=== PATIENT | female | born 1995 | race Hispanic/Latino ===

== ENCOUNTER 2022-04-14 10:23 | Emergency (ER) | payer SELFPAY ==
[2022-04-14 11:17] LABS: Urine Blood 3+ (Negative); Urine Glucose 3+ (Negative); Urine Protein Trace (Negative); Urine Specific Gravity 1.025 (1.005-1.030); Urine pH 6.5 (5.0-7.0)
[2022-04-14 11:31] LABS: Absolute Lymphocytes (CBC) 2.3 K/uL (0.7-4.9); Lymphocytes % 27.9 % (15.3-44.8); MCV 81.8 fL (80-100); RBC Red Blood Cell Count 5.38 M/uL (3.86-4.86)
[2022-04-14 11:41] LABS: Urine Mucus Slight /HPF (None Seen)
[2022-04-14 12:09] LABS: Potassium 3.9 mmol/L (3.5-5.1)
[2022-04-14 12:37] LABS: Urine Specific Gravity/Preg 1.025 (1.005-1.030)
--- NOTE | 2022-04-14 12:53 | RAD REPORT ---
EXAM DESCRIPTION: US - Transvaginal OB - 04/14/2022 12:02 pm CLINICAL HISTORY: with vaginal bleeding COMPARISON: None. FINDINGS: The uterus measures 12 x 6 x 7 centimeters. A normal appearing gestational sac is present within the endometrium. Within this is a yolk sac and pole with a crown-rump length 1.1 centim eter. Centimeters. Cardiac activity was not detected Right ovary is normal in size and echotexture. Left ovary not seen secondary to overlying bowel gas 4.8 centimeter right adnexal cyst. 3 centimeter left adnexal cyst No significant free fluid is seen. IMPRESSION: Single intrauterine . Estimated gestational age 7 weeks 2 days PEPITO 11/29/2022 Cardiac activity was not detected. This may indicate demise. Another consideration is that it w as not visualized secondary to the early gestation and technical factors. Follow-up ultrasound in 1 w [place] recommended Bilateral adnexal cystic masses probably benign. Follow-up ultrasound in 6 months recommended
--- NOTE | 2022-04-14 12:54 | RAD REPORT ---
EXAM DESCRIPTION: US - 1St Trimest Single 1St Fetus - 04/14/2022 12:02 pm CLINICAL HISTORY: with vaginal bleeding COMPARISON: None. FINDINGS: The uterus measures 12 x 6 x 7 centimeters. A normal appearing gestational sac is present within the endometrium. Within this is a yolk sac and pole with a crown-rump length 1.1 centim eter. Centimeters. Cardiac activity was not detected Right ovary is normal in size and echotexture. Left ovary not seen secondary to overlying bowel gas 4.8 centimeter right adnexal cyst. 3 centimeter left adnexal cyst No significant free fluid is seen. IMPRESSION: Single intrauterine . Estimated gestational age 7 weeks 2 days PEPITO 11/29/2022 Cardiac activity was not detected. This may indicate demise. Another consideration is that it w as not visualized secondary to the early gestation and technical factors. Follow-up ultrasound in 1 w [place] recommended Bilateral adnexal cystic masses probably benign. Follow-up ultrasound in 6 months recommended
--- NOTE | 2022-04-14 13:02 | ER ---
Nurse's Notes [facility] Name: Lynette Topete Age: 26 yrs Sex: Female : 1995 Arrival Date: 04/14/2022 Time: 10:27 Bed 18 Private MD: Diagnosis: Threatened ;Abnormal uterine and vaginal bleeding, unspecified Presentation: 04/14 10:31 Chief complaint: Patient states: started bleeding, when i wipe it looks like I;m about iw to start my period, happened this morning , I found out i'm a couple weeks ago and LMP was 03-09-22, home UPT were positive. Coronavirus screen: At this time, the client does not indicate any symptoms associated with coronavirus-19. Ebola Screen: Patient negative for fever greater than or equal to 101.5 degrees Fahrenheit, and additional compatible Ebola Virus Disease symptoms Patient denies exposure to infectious person. Patient denies travel to an Ebola-affected area in the 21 days before illness onset. No symptoms or risks identified at this time. Initial Sepsis Screen: Does the patient meet any 2 criteria? No. Patient's initial sepsis screen is negative. Does the patient have a suspected source of infection? No. Patient's initial sepsis screen is negative. Risk Assessment: Do you want to hurt yourself or someone else? Patient reports no desire to harm self or others. Onset of symptoms was April 14, 2022. 10:31 Method Of Arrival: Ambulatory iw 10:31 Acuity: AICHA 3 iw MANAGER CENTER: 10:33 2, Full Term 1, Living 1, LMP 03/09/2022 iw 10:35 2, Full Term 1, Premature 0, 0, Living 1 [facility] Historical: - Allergies: 10:33 No Known Allergies; iw - Home Meds: 10:33 None [Active]; iw - PMHx: 10:33 None; iw - PSHx: 10:33 None; iw - Social history:: Smoking status: . Screenin:19 Abuse screen: Denies threats or abuse. Denies injuries from another. Nutritional db screening: No deficits noted. Tuberculosis screening: No symptoms or risk factors identified. Fall Risk None identified. No fall in past 12 months (0 pts). No secondary diagnosis (0 pts). IV access (20 points). Ambulatory Aid- None/Bed Rest/Nurse Assist (0 pts). Gait- Normal/Bed Rest/Wheelchair (0 pts) Mental Status- Oriented to own ability (0 pts). Total Perez Fall Scale indicates No Risk (0-24 pts). Assessment: 11:17 Obstetrical Assessment: General assessment: awake and alert, skin warm and dry, db respirations even and unlabored. Reassessment: Patient appears in no apparent distress at this time. Patient is alert, oriented x 3, equal unlabored respirations, skin warm/dry/pink. states is last period last month between and . States had positive test at home. Started having red spotting. Denies blood clots and denies pain. General: Appears in no apparent distress. comfortable, Behavior is calm, cooperative, appropriate for age, quiet. Pain: Denies pain. Neuro: No deficits noted. Level of Consciousness is awake, alert, obeys commands, Oriented to person, place, time, situation, Appropriate for age Speech is normal. : No deficits noted. No signs and/or symptoms were reported regarding the genitourinary system. 12:30 Reassessment: Patient appears in no apparent distress at this time. Patient and/or db family updated on plan of care and expected duration. Pain level reassessed. Patient is alert, oriented x 3, equal unlabored respirations, skin warm/dry/pink. 13:45 Reassessment: Patient appears in no apparent distress at this time. Patient and/or db family updated on plan of care and expected duration. Pain level reassessed. Patient is alert, oriented x 3, equal unlabored respirations, skin warm/dry/pink. Patient states feeling better. Patient states symptoms have improved. Vital Signs: 10:31 BP 137 / 84; Pulse 85; Resp 16; Temp 98.3; Pulse Ox 100% on R/A; Weight 81.65 kg; iw Height 5 ft. 0 in. (152.40 cm); 13:45 BP 107 / 66; Pulse 76; Resp 16; Pulse Ox 100% on R/A; db 10:31 Body Mass Index 35.15 (81.65 kg, 152.40 cm) iw Vitals: 11:20 Heart Tones soil technician at bedside. Patient is not far enough along for db heart tones. ED Course: 10:27 Patient arrived in ED. as 10:27 [facility] Urbano FNP [facility] 10:27 Richard Adkins MD is Attending Physician. [facility] 10:32 Triage completed. iw 10:33 Arm band placed on. iw 10:40 Lisa Stovall, RN is Primary Nurse. db 11:13 Inserted saline lock: 20 gauge in left antecubital area, using aseptic technique. Blood db collected. 11:20 Patient has correct armband on for positive identification. Bed in low position. Call db light in reach. Side rails up X 1. 12:04 US Transvaginal Ob In Process Unspecified. EDMS 12:04 1St Trimest Single 1St Fetus In Process Unspecified. EDMS 13:01 Yoel Pagan MD is Referral Physician. [facility] 13:45 No provider procedures requiring assistance completed. IV discontinued, intact, db bleeding controlled, No redness/swelling at site. 13:45 No provider procedures requiring assistance completed. db Administered Medications: No medications were administered Medication: 11:19 VIS not applicable for this client. db Point of Care Testing: Urine : 14:09 hCG Reading: Positive; db Outcome: 13:01 Discharge ordered by . jh7 13:45 Discharged to home ambulatory, with family. db 13:45 Condition: stable 13:45 Discharge instructions given to patient, Instructed on discharge instructions, follow up and referral plans. Demonstrated understanding of instructions, follow-up care, medications, Prescriptions given X 2. 13:56 Patient left the ED. iw Signatures: Dispatcher [employer] Nancy Yoder Irene, RN RN Madai Urbano FNP [place] [phone] Lisa Stovall, RN RN db
--- NOTE | 2022-04-14 13:02 | EDPHYS ---
Physician Documentation [facility] Name: Lynette Topete Age: 26 yrs Sex: Female : 1995 Arrival Date: 04/14/2022 Time: 10:27 Bed 18 Private MD: ED Physician Richard Adkins HPI: 04/14 10:35 This 26 yrs old Female presents to ER via Ambulatory with complaints of jh7 Vaginal Bleeding, + Preg <12wks. 10:35 The patient presents to the emergency department with vaginal bleeding, that is light, jh7 with clots. The estimated gestational age is 5 weeks. Previous pregnancies: in previous pregnancies patient has had. Associated signs and symptoms: Pertinent negatives: abdominal pain, nausea, vomiting. [employer]ELOPER: 10:33 2, Full Term 1, Living 1, LMP 03/09/2022 iw 10:35 2, Full Term 1, Premature 0, 0, Living 1 jh7 Historical: - Allergies: 10:33 No Known Allergies; iw - Home Meds: 10:33 None [Active]; iw - PMHx: 10:33 None; iw - PSHx: 10:33 None; iw - Social history:: Smoking status: . ROS: 10:35 Constitutional: Negative for fever, chills, and weight loss, Eyes: Negative for injury, jh7 pain, redness, and discharge, ENT: Negative for injury, pain, and discharge, Neck: Negative for injury, pain, and swelling, Cardiovascular: Negative for chest pain, palpitations, and edema, Respiratory: Negative for shortness of breath, cough, wheezing, and pleuritic chest pain, Back: Negative for injury and pain, MS/Extremity: Negative for injury and deformity, Skin: Negative for injury, rash, and discoloration, Neuro: Negative for headache, weakness, numbness, tingling, and seizure. 10:35 Abdomen/GI: Positive for abdominal cramps, Negative for abdominal pain. 10:35 : Positive for vaginal bleeding, Negative for urinary symptoms. 10:35 All other systems are negative. Exam: 10:35 Constitutional: This is a well developed, well nourished patient who is awake, alert, jh7 and in no acute distress. Head/Face: Normocephalic, atraumatic. Cardiovascular: Regular rate and rhythm with a normal S1 and S2. No gallops, murmurs, or rubs. Normal PMI, no JVD. No pulse deficits. Respiratory: Lungs have equal breath sounds bilaterally, clear to auscultation and percussion. No rales, rhonchi or wheezes noted. No increased work of breathing, no retractions or nasal flaring. Abdomen/GI: Soft, non-tender, with normal bowel sounds. No distension or tympany. No guarding or rebound. No evidence of tenderness throughout. Back: No spinal tenderness. No costovertebral tenderness. Full range of motion. Skin: Warm, dry with normal turgor. Normal color with no rashes, no lesions, and no evidence of cellulitis. MS/ Extremity: Pulses equal, no cyanosis. Neurovascular intact. Full, normal range of motion. Neuro: Awake and alert, GCS 15, oriented to person, place, time, and situation. Motor strength 5/5 in all extremities. Sensory grossly intact. Normal gait. Vital Signs: 10:31 BP 137 / 84; Pulse 85; Resp 16; Temp 98.3; Pulse Ox 100% on R/A; Weight 81.65 kg; iw Height 5 ft. 0 in. (152.40 cm); 13:45 BP 107 / 66; Pulse 76; Resp 16; Pulse Ox 100% on R/A; db 10:31 Body Mass Index 35.15 (81.65 kg, 152.40 cm) iw MDM: 10:27 Patient medically screened. [facility] 13:07 Differential diagnosis: threatened Ab, Ovarian cyst. Data reviewed: vital signs, nurses [facility] notes, lab test result(s), radiologic studies, ultrasound. Data interpreted: Pulse oximetry: is 100 %. Interpretation: normal. Counseling: I had a detailed discussion with the patient and/or guardian regarding: the historical points, exam findings, and any diagnostic results supporting the discharge/admit diagnosis, the need for outpatient follow up, an OB/Gyne specialist, to return to the emergency department if symptoms worsen or persist or if there are any questions or concerns that arise at home. ED course: Informed patient of ultrasound findings. Advised to follow-up with her [employer]ELOPER within 1 week for repeat ultrasound.. 04/14 10:37 Order name: Basic Metabolic Panel; Complete Time: 12:28 [facility] 04/14 10:37 Order name: CBC with Diff; Complete Time: 11:55 [facility] 04/14 10:37 Order name: Quantitative Hcg; Complete Time: 12:28 [facility] 04/14 10:37 Order name: Urine Microscopic Only; Complete Time: 11:55 [facility] 04/14 11:18 Order name: Urine Dipstick-Ancillary; Complete Time: 11:20 EDMS 04/14 11:27 Order name: Urine --Ancillary (enter results); Complete Time: 12:44 eb 04/14 10:37 Order name: US Transvaginal Ob; Complete Time: 12:57 [facility] 04/14 10:37 Order name: IV Saline Lock; Complete Time: 11:17 [facility] 04/14 10:37 Order name: Labs collected and sent; Complete Time: 11:17 [facility] 04/14 10:37 Order name: NPO; Complete Time: 11:17 [facility] 04/14 10:37 Order name: Urine Dipstick-Ancillary (obtain specimen); Complete Time: 11:17 [facility] 04/14 10:37 Order name: Urine Test (obtain specimen); Complete Time: 11:17 [facility] 04/14 11:45 Order name: 1St Trimest Single 1St Fetus; Complete Time: 12:57 EDMS Administered Medications: No medications were administered Point of Care Testing: Urine : 14:09 hCG Reading: Positive; db Disposition: 15:42 Co-signature as Attending Physician, Richard Adkins MD I agree with the assessment and rt plan of care. Disposition Summary: 04/14/22 13:01 Discharge Ordered Location: Home [facility] Problem: new [facility] Symptoms: are unchanged [facility] Condition: Stable [facility] Diagnosis - Threatened [facility] - Abnormal uterine and vaginal bleeding, unspecified [facility] Followup: [facility] - With: Yoel Pagan MD - When: 2 - 3 days - Reason: Recheck today's complaints Discharge Instructions: - Discharge Summary Sheet [facility] - Threatened Miscarriage [facility] - Vaginal Bleeding During , First Trimester [facility] - Activity Restriction During [facility] Forms: - Medication Reconciliation Form [facility] - Thank You Letter [facility] - Work release form db Signatures: Dispatcher [employer] EDLucía Saavedra RN RN iw Madai Urbano, GANG SAWYER GANG SAWYER [facility] [place], Richard, MD MD rt
[2022-04-14 14:00] VITALS: BP 137/84; TEMP 98.3; O2SAT 100
== END 2022-04-14 13:56 | disposition home or self-care (01) ==
LOC: ER 10:23
DX: O20.0 Threatened abortion (principal); Z3A.01 Less than 8 weeks gestation of pregnancy
CPT/HCPCS: 36415; 76801; 76817; 80048; 81003; 81015; 81025; 84702; 85025; 99284

== ENCOUNTER 2024-01-24 22:51 | Emergency (ER) | payer OTHER ==
--- OUTSIDE RECORDS SUMMARY | 2024-01-24 23:02 | XMS REPORT | Continuity of Care Document ---
Author Name Unknown Address [address] [facility] [address] [place] [address] [facility] thconnect Address [address] [facility] [address] [place] [address] Care Team Providers Care Shearer Screen Measurer And Trimmer Name Role Phone Pcp, Patient Does Not Have A Primary Care Physic aman GURJIT BRAND Attending Clinician Unavailab GURJIT Ritter Attending Clinician Unavailab SIMI De Leon Attending Clinician Unavailab SIMI De Leon Attending Clinician Unavailab Mirlande Dominguez CNM Attending Clinician [phone] BIBIANA HIRSCH Attending Clinician Unavail able BIBIANA HIRSCH Attending Clinician Unavail able Risk, Roz-Neosd-Ps/High Attending Clinician Unav ailable MIRLANDE PATEL Attending Clinician Unavaila ble Ender, Ellacheddie Attending Clinician Unavailable John Paul Welch DNP Attending Clinician + [phone] JOHN PAUL WELCH Attending Clinician Unavail able CUONG NDIAYE Attending Clinician Unavail able MAURICE WILKINS Attending Clinician Unavailable Maurice Wilkins DO Attending Clinician [phone], [facility] Attending Clinician Unavailable Malou ECHOCARDIOGRAPHY TECH, Mundo Attending Clinician [phone] Doctor Unassigned, Myrtle Attending Clinician U teresa Santa MD, Simon Attending Clinician [phone] Delfin HAYESWElayne Attending Clinician [phone] Narendra PAVER, Mary Lou Garcia Attending Clinician Unava ilcarmelo HAJI, MUNDO Attending Clinician Unavailab CORRINA Vu Attending Clinician Unavailable Corrina Cortés Attending Clinician [phone] JESSICA PEDERSEN Attending Clinician Unavailable Rogelio WHYTE Attending Clinician Unavailable Rogelio Crisostomo Attending Clinician [phone] Jun KUMAR, Jessica Evans Attending Clinician [phone] Irving Matos MD Attending Clinician [phone] YVES MANRIQUEZ Attending Clinician Unavailable DENISE CONNER III Attending Clinician Unavaila JESSICA Hardy Admitting Clinician Unavailable RUI HERNADEZ Admitting Clinician Unavailable Jessica Pedersen MD Admitting Clinician [phone] Payers Payer Name Policy Type Policy Number Effective Date Expirati on Date Source MEDICAID PENDING PENDING 2022 00:00:00 [facility] [id number] 2022 00:00:00 2023 00:00:00 [facility] [id number] 2023 00:00:00 [place] [id number] 2023 00:00:00 [facility] [id number] 2023 00:00:00 Problems Condition Name Condition Details Condition Category Status Onset Date Resolution Date Last Treatment Date Treating Clinician Comments Source Rubella non-immune status, antepartum Rubella non-immune status, antepartum Disease Active 12-05 00:00: 00 [facility] Uncontroll ed type 2 diabetes mellitus with hyperglyce gayle Uncontroll ed type 2 diabetes mellitus with hyperglyce gayle Disease Active 2021-05 00:00: 00 [facility] Incomplete miscarriag e with blood clot Incomplete miscarriag e with blood clot Disease Active 2021-05 00:00: 00 [facility] Right ovarian cyst Right ovarian cyst Disease Active 09-18 00:00: 00 Overview: Formattin g of this note might be different from the original. Noted on USG, risk for torsion as per USG [facility] History of depression History of depression Disease Active 08-12 00:00: 00 [facility] Supervisio n of high risk , antepartum Supervisio n of high risk , antepartum Disease Active 07-15 00:00: 00 [facility] Anemia of mother in , condition Anemia of mother in , condition Disease Resolve d 2015-05 00:00: 00 2023-12-05 00:00:00 2023-12-05 19:13:30 [facility] Routine follow-up Routine follow-up Disease Resolve d 2015-05 00:00: 00 2023-12-05 00:00:00 2023-12-05 19:13:21 [facility] Gestationa l diabetes mellitus, antepartum Gestationa l diabetes mellitus, antepartum Disease Resolve d 01-02 00:00: 00 2023-12-05 00:00:00 2023-12-05 19:13:25 Overview: Formattin g of this note might be different from the original. Failed 1h- 220mg/dl 01/25 HgA1C= 7.4 [facility] Incomplete miscarriag e with blood clot Incomplete miscarriag e with blood clot Disease Resolve d 2021-05 00:00: 00 2022-05-07 00:00:00 2022-05-07 17:08:43 [facility] Diabetes mellitus affecting in first trimester Diabetes mellitus affecting in first trimester Disease Resolve d 2021-05 00:00: 00 2022-05-07 00:00:00 2022-05-07 17:09:10 [facility] 38 weeks gestation of 38 weeks gestation of Disease Resolve d 2015-05 0 00:00: 00 2016-03-19 00:00:00 2016-03-19 14:20:02 [facility] Chlamydia infection affecting , antepartum Chlamydia infection affecting , antepartum Disease Resolve d 3-01 00:00: 00 2016-03-19 00:00:00 2021-12-10 00:39:43 [facility] Obesity affecting Obesity affecting Disease Resolve d 2-19 00:00: 00 2016-03-19 00:00:00 2016-03-19 14:20:10 [facility] Tobacco smoking affecting Tobacco smoking affecting Disease Resolve d 2-19 00:00: 00 2016-03-19 00:00:00 2021-12-10 00:39:36 [facility] Back pain affecting Back pain affecting Disease Resolve d 2-19 00:00: 00 2016-03-19 00:00:00 2016-03-19 14:20:04 [facility] with abnormal glucose tolerance test (GTT) with abnormal glucose tolerance test (GTT) Disease Resolve d 2-20 00:00: 00 2016-01-25 00:00:00 2021-12-10 00:39:36 [facility] Diarrhea Diarrhea Disease Resolve d 7-19 00:00: 00 2016-01-11 00:00:00 2016-01-11 14:47:20 [facility] Allergies, Adverse Reactions, Alerts Allergy Name Allergy Type Status Severity Reaction(s) Onset Date Inactive Date Treating Clinician Comments Source NO KNOWN ALLERGIE S Drug Class Active [facility] Social History Social Habit Start Date Stop Date Quantity Comments Source ASSERTION 2023-11-11 00:00:00 [facility] History of tobacco use Cigarette Smoker [facility] function 2023-12-12 00:00:00 2023-12-12 00:00:00 [facility] Alcoholic beverage intake 2023-12-05 00:00:00 2023-12-05 00:00:00 Ex-drinker (finding) [facility] Tobacco use and exposure 2023-12-05 00:00:2023-12-05 00:00:00 Smokeless tobacco non-user [facility] Alcohol intake 2023-05-14 00:00:00 2023-05-14 00:00:00 Lifetime non-drinker (finding) [facility] Exposure to SARS-CoV-2 (event) 2022-04-27 00:00:00 2022-05-07 15:24:00 Not sure [facility] Tobacco Comment 2022-05-07 00:00:00 2022-05-07 00:00:00 4-5 cigs a day [facility] Sex assigned at 1995 00:00:00 1995 00:00:00 [facility] Smoking Status Start Date Stop Date Source Tobacco smoking consumption unknown [facility] Ex-smoker 2023-12-05 00:00:00 2023-12-05 00:00:00 [facility] Smokes tobacco daily 2022-05-07 00:00:00 [facility] Medications Ordered Medication Name Filled Medication Name Start Date Stop Date Current Medication? Ordering Clinician Indication Dosage Frequency Signature (SIG) Comments Components Source Blood-Gluco se Meter Kit 12-16 00:00: 00 Yes Check blood glucose 4 times a day. AM Fasting and 2 hours postprandi al x3. [facility] Blood Sugar Diagnostic, Disc Strp 12-16 00:00: 00 Yes Check blood glucose 4 times a day. AM Fasting and 2 hours postprandi al x3. [facility] lancets 28 gauge Misc 12-16 00:00: 00 Yes Check blood glucose 4 times a day. AM Fasting and 2 hours postprandi al x3. [facility] ampicillin 500 mg capsule 12-05 00:00: 00 12-16 04:59 :00 Yes [id number] 500mg Take 1 capsule by mouth every 6 (six) hours for 10 days. [facility] proMETHazin e 12.5 mg tablet 12-04 00:00: 00 Yes [id number] 12.5mg Take 1 tablet by mouth every 6 (six) hours as needed for Nausea and Vomiting (N/V). [facility] lancets 28 gauge [facility] 12-04 00:00: 00 12-16 00:00 :00 No [id number] Check blood glucose 4 times a day. AM Fasting and 2 hours postprandi al x3. [facility] Blood-Gluco se Meter Kit 12-04 00:00: 00 12-16 00:00 :00 No [id number] Check blood glucose 4 times a day. AM Fasting and 2 hours postprandi al x3. [facility] Blood Sugar Diagnostic, Disc Strp 12-04 00:00: 00 12-16 00:00 :00 No [id number] Check blood glucose 4 times a day. AM Fasting and 2 hours postprandi al x3. [facility] carboxymeth ylcellulose sodium ophthalmic drops 07-20 00:00: 00 12-04 00:00 :00 No [id number] 2[drp] Place 2 Drops in left eye 4 (four) times daily. [facility] methylPREDN ISolone (MEDROL, DARYL,) 4 mg tablets 07-20 00:00: 00 12-04 00:00 :00 No [id number] Take by mouth SEE-INSTRU CTIONS. follow package directions [facility] Eye Patches (OPTICLUDE EYE PATCH) [facility] 07-20 00:00: 00 12-04 00:00 :00 No [id number] Use as directed [facility] acyclovir 800 mg tablet 07-20 00:00: 00 07-27 05:59 :00 No [id number] 800mg Take 1 tablet by mouth 5 (five) times daily for 7 days. [facility] blood sugar diagnostic strip 2022-05 00:00: 00 12-04 00:00 :00 No [id number] Check blood sugar 2 times a day. E11.9. Brand per insurance. [facility] glipiZIDE 5 mg tablet 2022-05 00:00: 00 Yes [id number] 5mg Take 1 tablet by mouth in the morning. [facility] semaglutide (OZEMPIC) 1 mg/dose (2 mg/1.5 mL) [facility] 2022-05 00:00: 00 Yes [id number] 1mg inject 1 mg under the skin weekly. [facility] Blood-Gluco se Meter Kit 2022-05 00:00: 00 12-04 00:00 :00 No [id number] Check sugars 3 times a day. Dx Code E11.9. Brand per insurance. [facility] metformin ER 500 mg 24 hr tablet 2022-05 00:00: 00 08-18 04:59 :00 No [id number] Take 1 tablet by mouth daily for 3 days, THEN 1 tablet 2 (two) times daily for 3 days, THEN 2 tablets 2 (two) times daily for 90 days. Take 1 tab daily [facility] semaglutide (OZEMPIC) 0.25 mg or 0.5 mg (2 mg/3 mL) [facility] 2022-05 00:00: 00 06-14 05:59 :00 No [id number] .5mg inject 0.5 mg under the skin weekly for 30 days. [facility] semaglutide (OZEMPIC) 0.25 mg or 0.5 mg (2 mg/3 mL) [facility] 2022-05 00:00: 00 06-14 05:59 :00 No [id number] .25mg inject 0.25 mg under the skin weekly for 30 days. [facility] mupirocin 2 % ointment 2022-0527 00:00: 00 04-26 05:59 :00 No [id number] Apply to area(s) 3 (three) times daily for 3 days. [facility] gabapentin 300 mg capsule 2022-05 0-16 00:00: 00 12-04 00:00 :00 No [id number] 300mg Take 1 capsule by mouth in the morning and 1 capsule at noon and 1 capsule in the evening. [facility] Lancets Misc 2022-05 0-16 00:00: 00 12-04 00:00 :00 No [id number] Check sugars 2 times a day. Dx Code E11.9. Brand per insurance. [facility] blood sugar diagnostic strip 2022-05 016 00:00: 00 05-17 00:00 :00 No [id number] Check blood sugar 2 times a day. E11.9. Brand per insurance. [facility] metFORMIN 1,000 mg tablet 2022-05 00:00: 00 05-14 00:00 :00 No [id number] 1000mg Take 1 tablet by mouth in the morning and 1 tablet in the evening. Take with meals. [facility] Blood-Gluco se Meter Kit 2022-05 00:00: 00 05-14 00:00 :00 No [id number] Check sugars 2 times a day. Dx. Code E11.9 Brand per Insurance [facility] semaglutide (OZEMPIC) 0.25 mg or 0.5 mg(2 mg/1.5 mL) PnIj 2022-05 00:00: 00 05-11 05:59 :00 No [id number] .25mg inject 0.25 mg under the skin weekly for 60 days. [facility] ketorolac (TORADOL) injection 15 mg 02-20 04:30: 00 02-20 03:48 :00 No 15mg 15 mg, Slow IV Push, ONCE, 1 dose, On Sat02/19/23 at 2330, [facility] ondansetron (ZOFRAN (PF)) injection 4 mg 02-20 03:45: 00 02-20 03:48 :00 No 4mg 4 mg, Slow IV Push, ONCE, 1 dose, On Sat02/19/23 at 2245, [facility] cefdinir (OMNICEF) capsule 300 mg 02-20 03:40: 00 02-20 03:48 :00 No 300mg 300 mg, Oral, ONCE, 1 dose, On Sat02/19/23 at 2245, [facility]
Re ason for Anti-Infec tive: Documented Infection< br>Documen dionte Infection Site: Urine
D uration of Therapy: Other (see Comments) [facility] NaCl 0.9% (NS) IV infusion 1,000 mL 02-20 03:36: 00 02-20 05:09 :00 No 1000mL at 999 mL/hr, Intravenou s, ONCE, 1 dose, On Sat02/19/23 at 2245, [facility] fluconazole 150 mg tablet 02-20 00:00: 00 02-21 04:59 :00 No [id number] 150mg Take 1 tablet by mouth once now for 1 dose. [facility] ondansetron 4 mg disintegrat ing tablet 02-19 00:00: 00 03-11 00:00 :00 No [id number] 4mg Take 1 tablet by mouth every 8 (eight) hours as needed for Nausea and Vomiting (N/V). [facility] metFORMIN 500 mg tablet 02-19 00:00: 00 03-11 00:00 :00 No [id number] 500mg Take 1 tablet by mouth in the morning and 1 tablet in the evening. Do all this for 30 days. [facility] cefdinir 300 mg capsule 02-19 00:00: 00 02-27 04:59 :00 No [id number] 300mg Take 1 capsule by mouth in the morning and 1 capsule in the evening. Do all this for 7 days. [facility] iopamidol (ISOVUE 370-500 mL) injection 100 mL 11-10 09:30: 00 11-10 09:30 :00 No [id number] 100mL 100 mL, Intravenou s, ONCE, 1 dose, On Sat11/10/22 at 0430, Routine [facility] NaCl 0.9% (NS) bolus infusion 1,000 mL 11-10 08:00: 00 11-10 08:00 :00 No 1000mL at 999 mL/hr, 1,000 mL, IV Infusion, ONCE, 1 dose, On 11/10/22 at 0300, STAT [facility] ondansetron (ZOFRAN (PF)) injection 4 mg 11-10 08:00: 00 11-10 07:04 :00 No 4mg 4 mg, Slow IV Push, ONCE, 1 dose, On 11/10/22 at 0300, [facility] dicyclomine 20 mg tablet 11-10 00:00: 00 03-11 00:00 :00 No [id number] 20mg Take 1 tablet by mouth every 6 (six) hours as needed for Abdominal pain. [facility] ondansetron (ZOFRAN) 4 mg tablet 11-10 00:00: 00 03-11 00:00 :00 No [id number] 4mg Take 1 tablet by mouth every 8 (eight) hours as needed for Nausea and Vomiting (N/V). [facility] NaCl 0.9% (NS) IV infusion 1,000 mL 2021-05 15:15: 00 Yes 1000mL at 150 mL/hr, IV Infusion, CONTINUOUS , Starting on Sat04/17/22 at 0915, Until Discontinu ed, Routine [facility] Sliding Scale Insulin-Reg ular + Fsbg Testing 2021-05 14:45: 00 Yes Subcutaneo us, AC+HS, First dose (after last modificati on) on Sat04/17/22 at 0845, Until Discontinu ed, Routine [facility] ondansetron (ZOFRAN (PF)) injection 4 mg 2021-05 09:53: 37 Yes 4mg 4 mg, Slow IV Push, Q8HPRN, Nausea and Vomiting (N/V), Starting on Sat04/17/22 at 0353
Do ses of ondansetro n 16 mg and above need to be administer ed via IV piggyback. For Dose >=24mg ECG monitoring is advisable.
[facility] FENTanyl PF (SUBLIMAZE (PF)) injection 25 mcg 2021-05 09:52: 32 Yes 25ug 25 mcg, Slow IV Push, Q1HPRN, Starting on Sat04/17/22 at 0352, Until Discontinu ed, Routine, Pain (scale 7-10) [facility] D5W 0.9% NaCl (NS) IV infusion 1,000 mL 2021-05 09:52: 00 04-17 14:09 :37 No 1000mL at 150 mL/hr, 1,000 mL, IV Infusion, CONTINUOUS , Starting on Sat04/17/22 at 0400, Until Sat04/17/22 at 0809, Routine [facility] morpHINE (4 mg/mL) injection 4 mg 2021-05 09:45: 00 04-17 08:45 :00 No 4mg 4 mg, Slow IV Push, ONCE, 1 dose, On Sat04/17/22 at 0345, STAT [facility] NaCl 0.9% (NS) bolus infusion 1,000 mL 2021-05 07:30: 00 04-17 08:14 :00 No 1000mL at 999 mL/hr, 1,000 mL, IV Piggyback, ONCE, 1 dose, On Sat04/17/22 at 0130, STAT [facility] cefTRIAXone (ROCEPHIN) 1,000 mg in NaCl 0.9% (NS) 50 mL MINI-BAG 2021-05 07:30: 00 04-17 07:56 :00 No 1000mg 1,000 mg, IV Piggyback, ONCE, 1 dose, On Sat04/17/22 at 0130, Administer over 30 Minutes, 50 mL
Reas on for Anti-Infec tive: Empiric Therapy for Suspected Infection< br>Empiric Therapy Site: Urine
D uration of therapy: 72 hours [facility] ondansetron (ZOFRAN (PF)) injection 8 mg 2021-05 07:15: 00 04-17 07:08 :00 No 8mg 8 mg, Slow IV Push, ONCE, 1 dose, On Sat04/17/22 at 0115, [facility] NaCl 0.9% (NS) bolus infusion 1,000 mL 2021-05 06:15: 00 04-17 06:40 :00 No 1000mL at 999 mL/hr, 1,000 mL, IV Piggyback, ONCE, 1 dose, On Sat04/17/22 at 0015, STAT [facility] proMETHazin e (PHENERGAN) 25 mg in NaCl 0.9% (NS) 50 mL IV piggyback 2021-05 05:30: 00 04-17 05:53 :00 No 25mg 25 mg, IV Piggyback, ONCE, 1 dose, On Sat04/16/22 at 2330, [facility] metFORMIN 500 mg tablet 2021-05 00:00: 00 03-11 00:00 :00 No [id number] 1000mg Take 2 tablets by mouth in the morning and 2 tablets in the evening. Take with meals. [facility] sulfamethox azole-trime thoprim 800-160 mg per tablet 11-30 00:00: 00 03-11 00:00 :00 No 1{tbl} Take 1 tablet by mouth every 12 (twelve) hours. [facility] traMADOL (ULTRAM) 50 mg tablet 11-30 00:00: 00 03-11 00:00 :00 No 50mg Take 1 tablet by mouth every 6 (six) hours as needed for Pain (scale 4-6). [facility] bacitracin- polymyxin B 500-10,000 unit/gram topical ointment 11-30 00:00: 00 03-11 00:00 :00 No Apply to area(s) 2 (two) times daily. [facility] ascorbic acid, vitamin C, (VITAMIN C) 500 mg tablet 2015-05 00:00: 00 03-11 00:00 :00 No 500mg Take 1 tablet by mouth daily. [facility] vitamin w/FA (PRENATABS RX) tablet 2015-05 00:00: 03-11 00:00 :00 No 1{tbl} Take 1 tablet by mouth daily. [facility] ferrous sulfate 325 mg (65 mg iron) tablet 2015-05 0 00:00: 03-11 00:00 :00 No 325mg Take 1 tablet by mouth 2 (two) times daily. [facility] acetaminoph en-codeine (TYLENOL #3) 300-30 mg tablet 2015-05 00:00: 03-11 00:00 :00 No 1{tbl} Take 1-2 tablets by mouth every 6 (six) hours as needed for Pain (scale 1-3) or Pain (scale 4-6). For patients < 12 years recommend do not exceed 5 doses or 2.6 gm in 24 hours totals for all acetaminop hen containing products. For adults with normal hepatic function recommend do not exceed 3 grams in 24 hours for all acetaminop hen containing products. [facility] ibuprofen (MOTRIN) 600 mg tablet 2015-05 00:00: 03-11 00:00 :00 No 600mg Take 1 tablet by mouth every 6 (six) hours as needed for Pain (scale 4-6). Take with food or milk. [facility] Immunizations Ordered Immunization Name Filled Immunization Name Date Status Comments Source Poliovirus, Live, Oral, Trivalent Unknown Completed [facility] TDAP Unknown Completed [facility] Haemophilus influenzae type b vaccine, conjugate unspecified formulation Unknown Completed [facility] Varicella (varivax)(chicken pox) Unknown Completed [facility] Varicella (varivax)(chicken pox) Unknown Completed [facility] Influenza Virus Vaccine Quad IM, Preserv and ABX Free 6 MO-64 YRS (FLUCELVAX) Unknown [facility] Haemophilus influenzae type b vaccine, conjugate unspecified formulation Unknown Completed [facility] Influenza Virus Vaccine Unknown Completed [facility] TDAP Unknown Completed [facility] Influenza Virus Vaccine Quad IM 3+ YRS Unknown Completed [facility] Haemophilus influenzae type b vaccine, conjugate unspecified formulation Unknown Completed [facility] SARS-COV-2 COVID-19 VACCINE - (MODERNA) Unknown Completed [facility] DTaP, Unspecified Formulation Unknown Completed [facility] DTaP, Unspecified Formulation Unknown Completed [facility] DTaP, Unspecified Formulation Unknown Completed [facility] DTaP, Unspecified Formulation Unknown Completed [facility] DTaP, Unspecified Formulation Unknown Completed [facility] Influenza Virus Vaccine Quad .5 mL IM 6+ MO (FLUZONE/FLULAVAL/FLUA AMY) Unknown Completed [facility] Influenza Virus Vaccine Nasal Unknown Completed [facility] HEPATITIS A Unknown Completed [facility] HEPATITIS A Unknown Completed [facility] Hib-HbOC Unknown Completed [facility] Hep B, Adol or Pedi Dosage Unknown Completed [facility] Hep B, Adol or Pedi Dosage Unknown Completed [facility] Hep B, Adol or Pedi Dosage Unknown Completed [facility] Haemophilus influenzae type b vaccine, conjugate unspecified formulation Unknown Completed [facility] Haemophilus influenzae type b vaccine, conjugate unspecified formulation Unknown Completed [facility] Haemophilus influenzae type b vaccine, conjugate unspecified formulation Unknown Completed [facility] Hib-HbOC Unknown Completed [facility] Hib-HbOC Unknown Completed [facility] HIB 4 Dose Schedule Unknown Completed [facility] HPV Unknown Completed [facility] Hib-HbOC Unknown Completed [facility] Meningococcal Polysaccharide (groups A, C, Y and W-135) conjugate vaccine (MCV4P) Unknown Completed [facility] MMR Unknown Completed [facility] MMR Unknown Completed [facility] Pneumococcal 7 Conjugate, PCV7 (Prevnar7) Unknown Completed [facility] IPV Unknown Completed [facility] IPV Unknown Completed [facility] IPV Unknown Completed [facility] Poliovirus, Live, Oral, Trivalent Unknown Completed [facility] TDAP Unknown Completed [facility] Varicella (varivax)(chicken pox) Unknown Completed [facility] HIB 4 Dose Schedule Unknown Completed [facility] Varicella (varivax)(chicken pox) Unknown Completed [facility] Influenza Virus Vaccine Quad IM, Preserv and ABX Free 6 MO-64 YRS (FLUCELVAX) Unknown [facility]pleted [facility] HPV Unknown Completed [facility] Influenza Virus Vaccine Unknown Completed [facility] TDAP Unknown Completed [facility] Influenza Virus Vaccine Quad IM 3+ YRS Unknown Completed [facility] SARS-COV-2 COVID-19 VACCINE - (MODERNA) Unknown Completed [facility] DTaP, Unspecified Formulation Unknown Completed [facility] DTaP, Unspecified Formulation Unknown Completed [facility] Meningococcal Polysaccharide (groups A, C, Y and W-135) conjugate vaccine (MCV4P) Unknown Completed [facility] DTaP, Unspecified Formulation Unknown Completed [facility] DTaP, Unspecified Formulation Unknown Completed [facility] DTaP, Unspecified Formulation Unknown Completed [facility] Influenza Virus Vaccine Quad .5 mL IM 6+ MO (FLUZONE/FLULAVAL/FLUA AMY) Unknown Completed [facility] Influenza Virus Vaccine Nasal Unknown Completed [facility] HEPATITIS A Unknown Completed [facility] HEPATITIS A Unknown Completed [facility] Hep B, Adol or Pedi Dosage Unknown Completed [facility] Hep B, Adol or Pedi Dosage Unknown Completed [facility] Hep B, Adol or Pedi Dosage Unknown Completed [facility] MMR Unknown Completed [facility] Haemophilus influenzae type b vaccine, conjugate unspecified formulation Unknown Completed [facility] Haemophilus influenzae type b vaccine, conjugate unspecified formulation Unknown Completed [facility] Haemophilus influenzae type b vaccine, conjugate unspecified formulation Unknown Completed [facility] Hib-HbOC Unknown Completed [facility] Hib-HbOC Unknown Completed [facility] HIB 4 Dose Schedule Unknown Completed [facility] HPV Unknown Completed [facility] Meningococcal Polysaccharide (groups A, C, Y and W-135) conjugate vaccine (MCV4P) Unknown Completed [facility] MMR Unknown Completed [facility] MMR Unknown Completed [facility] [facility] Com[facility] Pneumococcal 7 Conjugate, PCV7 (Prevnar7) Unknown Completed [facility] IPV Unknown Completed [facility] IPV Unknown Completed [facility] IPV Unknown Completed [facility] Poliovirus, Live, Oral, Trivalent Unknown Completed [facility] TDAP Unknown Completed [facility] Varicella (varivax)(chicken pox) Unknown Completed [facility] Varicella (varivax)(chicken pox) Unknown Completed [facility] Influenza Virus Vaccine Quad IM, Preserv and ABX Free 6 MO-64 YRS (FLUCELVAX) Unknown [facility] Pneumococcal 7 Conjugate, PCV7 (Prevnar7) Unknown Completed [facility] IPV Unknown Completed [facility] Influenza Virus Vaccine Unknown Completed [facility] TDAP Unknown Completed [facility] Influenza Virus Vaccine Quad IM 3+ YRS Unknown Completed [facility] SARS-COV-2 COVID-19 VACCINE - (MODERNA) Unknown Completed [facility] DTaP, Unspecified Formulation Unknown Completed [facility] DTaP, Unspecified Formulation Unknown Completed [facility] DTaP, Unspecified Formulation Unknown Completed [facility] DTaP, Unspecified Formulation Unknown Completed [facility] DTaP, Unspecified Formulation Unknown Completed [facility] Influenza Virus Vaccine Quad .5 mL IM 6+ MO (FLUZONE/FLULAVAL/FLUA AMY) Unknown Completed [facility] IPV Unknown Completed [facility] Influenza Virus Vaccine Nasal Unknown Completed [facility] HEPATITIS A Unknown Completed [facility] HEPATITIS A Unknown Completed [facility] Hep B, Adol or Pedi Dosage Unknown Completed [facility] Hep B, Adol or Pedi Dosage Unknown Completed [facility] Hep B, Adol or Pedi Dosage Unknown Completed [facility] Haemophilus influenzae type b vaccine, conjugate unspecified formulation Unknown Completed [facility] Haemophilus influenzae type b vaccine, conjugate unspecified formulation Unknown Completed [facility] Haemophilus influenzae type b vaccine, conjugate unspecified formulation Unknown Completed [facility] Hib-HbOC Unknown Completed [facility] IPV Unknown Completed [facility] Hib-HbOC Unknown Completed [facility] HIB 4 Dose Schedule Unknown Completed [facility] HPV Unknown Completed [facility] Meningococcal Polysaccharide (groups A, C, Y and W-135) conjugate vaccine (MCV4P) Unknown Completed [facility] MMR Unknown Completed [facility] MMR Unknown Completed [facility] Pneumococcal 7 Conjugate, PCV7 (Prevnar7) Unknown Completed [facility] IPV Unknown Completed [facility] IPV Unknown Completed [facility] IPV Unknown Completed [facility] Poliovirus, Live, Oral, Trivalent Unknown Completed [facility] Poliovirus, Live, Oral, Trivalent Unknown Completed [facility] TDAP Unknown Completed [facility] Varicella (varivax)(chicken pox) Unknown Completed [facility] Varicella (varivax)(chicken pox) [facility] Influenza Virus Vaccine Quad IM, Preserv and ABX Free 6 MO-64 YRS (FLUCELVAX) Unknown [facility] TDAP Unknown Completed [facility] Influenza Virus Vaccine Unknown Completed [facility] Varicella (varivax)(chicken pox) Unknown [facility] TD[facility] Unknown Completed [facility] Influenza Virus Vaccine Quad IM 3+ YRS Unknown [facility] SARS-COV-2 COVID-19 VACCINE - (MODERNA) Unknown Completed [facility] DTaP, Unspecified Formulation Unknown Completed [facility] DTaP, Unspecified Formulation Unknown Completed [facility] DTaP, Unspecified Formulation Unknown Completed [facility] DTaP, Unspecified Formulation Unknown Completed [facility] DTaP, Unspecified Formulation Unknown Completed [facility] Influenza Virus Vaccine Quad .5 mL IM 6+ MO (FLUZONE/FLULAVAL/FLUA AMY) Unknown Completed [facility] Influenza Virus Vaccine Nasal Unknown Completed [facility] Varicella (varivax)(chicken pox) Unknown Completed [facility] HEPATITIS A Unknown Completed [facility] HEPATITIS A Unknown Completed [facility] Hep B, Adol or Pedi Dosage Unknown Completed [facility] Hep B, Adol or Pedi Dosage Unknown Completed [facility] Hep B, Adol or Pedi Dosage Unknown Completed [facility] Haemophilus influenzae type b vaccine, conjugate unspecified formulation Unknown Completed [facility] Haemophilus influenzae type b vaccine, conjugate unspecified formulation Unknown Completed [facility] Haemophilus influenzae type b vaccine, conjugate unspecified formulation Unknown Completed [facility] Hib-HbOC Unknown Completed [facility] Hib-HbOC Unknown Completed [facility] Influenza Virus Vaccine Quad IM, Preserv and ABX Free 6 MO-64 YRS (FLUCELVAX) Unknown [facility] HIB 4 Dose Schedule Unknown Completed [facility] HPV Unknown Completed [facility] Meningococcal Polysaccharide (groups A, C, Y and W-135) conjugate vaccine (MCV4P) Unknown Completed [facility] MMR Unknown Completed [facility] MMR Unknown Completed [facility] Pneumococcal 7 Conjugate, PCV7 (Prevnar7) Unknown Completed [facility] IPV Unknown Completed [facility] IPV Unknown Completed [facility] IPV Unknown Completed [facility] Poliovirus, Live, Oral, Trivalent Unknown Completed [facility] TDAP Unknown Completed [facility] Varicella (varivax)(chicken pox) Unknown Completed [facility] Varicella (varivax)(chicken pox) Unknown [facility] Influenza Virus Vaccine Quad IM, Preserv and ABX Free 6 MO-64 YRS (FLUCELVAX) Unknown [facility] Influ[facility] Virus Vaccine Unknown Completed [facility] TDAP Unknown Completed [facility] Influenza Virus Vaccine Quad IM 3+ YRS Unknown Completed [facility] SARS-COV-2 COVID-19 VACCINE - (MODERNA) Unknown Completed [facility] DTaP, Unspecified Formulation Unknown Completed [facility] DTaP, Unspecified Formulation Unknown Completed [facility] DTaP, Unspecified Formulation Unknown Completed [facility] DTaP, Unspecified Formulation Unknown Completed [facility] DTaP, Unspecified Formulation Unknown Completed [facility] Influenza Virus Vaccine Quad .5 mL IM 6+ MO (FLUZONE/FLULAVAL/FLUA AMY) Unknown Completed [facility] Influenza Virus Vaccine Nasal Unknown Completed [facility] HEPATITIS A Unknown Completed [facility] HEPATITIS A Unknown Completed [facility] Hep B, Adol or Pedi Dosage Unknown Completed [facility] Hep B, Adol or Pedi Dosage Unknown Completed [facility] Hep B, Adol or Pedi Dosage Unknown Completed [facility] Haemophilus influenzae type b vaccine, conjugate unspecified formulation Unknown Completed [facility] Haemophilus influenzae type b vaccine, conjugate unspecified formulation Unknown Completed [facility] Haemophilus influenzae type b vaccine, conjugate unspecified formulation Unknown Completed [facility] Hib-HbOC Unknown Completed [facility] Hib-HbOC Unknown Completed [facility] HIB 4 Dose Schedule Unknown Completed [facility] HPV Unknown Completed [facility] Meningococcal Polysaccharide (groups A, C, Y and W-135) conjugate vaccine (MCV4P) Unknown Completed [facility] MMR Unknown Completed [facility] MMR Unknown Completed [facility] Pneumococcal 7 Conjugate, PCV7 (Prevnar7) Unknown Completed [facility] IPV Unknown Completed [facility] IPV Unknown Completed [facility] IPV Unknown Completed [facility] Poliovirus, Live, Oral, Trivalent Unknown Completed [facility] TDAP Unknown Completed [facility] Varicella (varivax)(chicken pox) Unknown Completed [facility] Varicella (varivax)(chicken pox) Unknown Completed [facility] Influenza Virus Vaccine Quad IM, Preserv and ABX Free 6 MO-64 YRS (FLUCELVAX) Unknown [facility] Influ[facility] Virus Vaccine Unknown Completed [facility] TDAP Unknown Completed [facility] Influenza Virus Vaccine Quad IM 3+ YRS Unknown Completed [facility] SARS-COV-2 COVID-19 VACCINE - (MODERNA) Unknown Completed [facility] DTaP, Unspecified Formulation Unknown Completed [facility] DTaP, Unspecified Formulation Unknown Completed [facility] DTaP, Unspecified Formulation Unknown Completed [facility] DTaP, Unspecified Formulation Unknown Completed [facility] DTaP, Unspecified Formulation Unknown Completed [facility] Influenza Virus Vaccine Quad .5 mL IM 6+ MO (FLUZONE/FLULAVAL/FLUA AMY) Unknown Completed [facility] Influenza Virus Vaccine Nasal Unknown Completed [facility] HEPATITIS A Unknown Completed [facility] HEPATITIS A Unknown Completed [facility] Hep B, Adol or Pedi Dosage Unknown Completed [facility] Hep B, Adol or Pedi Dosage Unknown Completed [facility] Hep B, Adol or Pedi Dosage Unknown Completed [facility] Haemophilus influenzae type b vaccine, conjugate unspecified formulation Unknown Completed [facility] Haemophilus influenzae type b vaccine, conjugate unspecified formulation Unknown Completed [facility] Haemophilus influenzae type b vaccine, conjugate unspecified formulation Unknown Completed [facility] Hib-HbOC Unknown Completed [facility] Hib-HbOC Unknown Completed [facility] HIB 4 Dose Schedule Unknown Completed [facility] HPV Unknown Completed [facility] Meningococcal Polysaccharide (groups A, C, Y and W-135) conjugate vaccine (MCV4P) Unknown Completed [facility] MMR Unknown Completed [facility] MMR Unknown Completed [facility] Pneumococcal 7 Conjugate, PCV7 (Prevnar7) Unknown Completed [facility] IPV Unknown Completed [facility] IPV Unknown Completed [facility] IPV Unknown Completed [facility] Poliovirus, Live, Oral, Trivalent Unknown Completed [facility] TDAP Unknown Completed [facility] Varicella (varivax)(chicken pox) Unknown Completed [facility] Varicella (varivax)(chicken pox) Unknown Completed [facility] Influenza Virus Vaccine Quad IM, Preserv and ABX Free 6 MO-64 YRS (FLUCELVAX) Unknown Completed [facility] Influenza Virus Vaccine Unknown Completed [facility] TDAP Unknown Completed [facility] Influenza Virus Vaccine Quad IM 3+ YRS Unknown Completed [facility] SARS-COV-2 COVID-19 VACCINE - (MODERNA) Unknown Completed [facility] DTaP, Unspecified Formulation Unknown Completed [facility] DTaP, Unspecified Formulation Unknown Completed [facility] DTaP, Unspecified Formulation Unknown Completed [facility] DTaP, Unspecified Formulation Unknown Completed [facility] DTaP, Unspecified Formulation Unknown Completed [facility] Influenza Virus Vaccine Quad .5 mL IM 6+ MO (FLUZONE/FLULAVAL/FLUA AMY) Unknown Completed [facility] Influenza Virus Vaccine Nasal Unknown Completed [facility] HEPATITIS A Unknown Completed [facility] HEPATITIS A Unknown Completed [facility] Hep B, Adol or Pedi Dosage Unknown Completed [facility] Hep B, Adol or Pedi Dosage Unknown Completed [facility] Hep B, Adol or Pedi Dosage Unknown Completed [facility] Haemophilus influenzae type b vaccine, conjugate unspecified formulation Unknown Completed [facility] Haemophilus influenzae type b vaccine, conjugate unspecified formulation Unknown Completed [facility] Haemophilus influenzae type b vaccine, conjugate unspecified formulation Unknown Completed [facility] Hib-HbOC Unknown Completed [facility] Hib-HbOC Unknown Completed [facility] HIB 4 Dose Schedule Unknown Completed [facility] HPV Unknown Completed [facility] Meningococcal Polysaccharide (groups A, C, Y and W-135) conjugate vaccine (MCV4P) Unknown Completed [facility] MMR Unknown Completed [facility] MMR Unknown Completed [facility] Pneumococcal 7 Conjugate, PCV7 (Prevnar7) Unknown Completed [facility] IPV Unknown Completed [facility] IPV Unknown Completed [facility] IPV Unknown Completed [facility] Poliovirus, Live, Oral, Trivalent Unknown Completed [facility] TDAP Unknown Completed [facility] Varicella (varivax)(chicken pox) Unknown Completed [facility] Varicella (varivax)(chicken pox) Unknown Completed [facility] Influenza Virus Vaccine Quad IM, Preserv and ABX Free 6 MO-64 YRS (FLUCELVAX) Unknown [facility] Influ[facility] Virus Vaccine Unknown Completed [facility] TDAP Unknown Completed [facility] Influenza Virus Vaccine Quad IM 3+ YRS Unknown Completed [facility] SARS-COV-2 COVID-19 VACCINE - (MODERNA) Unknown Completed [facility] DTaP, Unspecified Formulation Unknown Completed [facility] DTaP, Unspecified Formulation Unknown Completed [facility] DTaP, Unspecified Formulation Unknown Completed [facility] DTaP, Unspecified Formulation Unknown Completed [facility] DTaP, Unspecified Formulation Unknown Completed [facility] Influenza Virus Vaccine Quad .5 mL IM 6+ MO (FLUZONE/FLULAVAL/FLUA AMY) Unknown Completed [facility] Influenza Virus Vaccine Nasal Unknown Completed [facility] HEPATITIS A Unknown Completed [facility] HEPATITIS A Unknown Completed [facility] Hep B, Adol or Pedi Dosage Unknown Completed [facility] Hep B, Adol or Pedi Dosage Unknown Completed [facility] Hep B, Adol or Pedi Dosage Unknown Completed [facility] Haemophilus influenzae type b vaccine, conjugate unspecified formulation Unknown Completed [facility] Haemophilus influenzae type b vaccine, conjugate unspecified formulation Unknown Completed [facility] Haemophilus influenzae type b vaccine, conjugate unspecified formulation Unknown Completed [facility] Hib-HbOC Unknown Completed [facility] Hib-HbOC Unknown Completed [facility] HIB 4 Dose Schedule Unknown Completed [facility] HPV Unknown Completed [facility] Meningococcal Polysaccharide (groups A, C, Y and W-135) conjugate vaccine (MCV4P) Unknown Completed [facility] MMR Unknown Completed [facility] MMR Unknown Completed [facility] Pneumococcal 7 Conjugate, PCV7 (Prevnar7) Unknown Completed [facility] IPV Unknown Completed [facility] IPV Unknown Completed [facility] IPV Unknown Completed [facility] Poliovirus, Live, Oral, Trivalent Unknown Completed [facility] TDAP Unknown Completed [facility] Varicella (varivax)(chicken pox) Unknown Completed [facility] Varicella (varivax)(chicken pox) Unknown Completed [facility] Influenza Virus Vaccine Quad IM, Preserv and ABX Free 6 MO-64 YRS (FLUCELVAX) Unknown [facility] Influ[facility] Virus Vaccine Unknown Completed [facility] TDAP Unknown Completed [facility] Influenza Virus Vaccine Quad IM 3+ YRS Unknown Completed [facility] SARS-COV-2 COVID-19 VACCINE - (MODERNA) Unknown Completed [facility] DTaP, Unspecified Formulation Unknown Completed [facility] DTaP, Unspecified Formulation Unknown Completed [facility] DTaP, Unspecified Formulation Unknown Completed [facility] DTaP, Unspecified Formulation Unknown Completed [facility] DTaP, Unspecified Formulation Unknown Completed [facility] Influenza Virus Vaccine Quad .5 mL IM 6+ MO (FLUZONE/FLULAVAL/FLUA AMY) Unknown Completed [facility] Influenza Virus Vaccine Nasal Unknown Completed [facility] HEPATITIS A Unknown Completed [facility] HEPATITIS A Unknown Completed [facility] Hep B, Adol or Pedi Dosage Unknown Completed [facility] Hep B, Adol or Pedi Dosage Unknown Completed [facility] Hep B, Adol or Pedi Dosage Unknown Completed [facility] Haemophilus influenzae type b vaccine, conjugate unspecified formulation Unknown Completed [facility] Haemophilus influenzae type b vaccine, conjugate unspecified formulation Unknown Completed [facility] Haemophilus influenzae type b vaccine, conjugate unspecified formulation Unknown Completed [facility] Hib-HbOC Unknown Completed [facility] Hib-HbOC Unknown Completed [facility] HIB 4 Dose Schedule Unknown Completed [facility] HPV Unknown Completed [facility] Meningococcal Polysaccharide (groups A, C, Y and W-135) conjugate vaccine (MCV4P) Unknown Completed [facility] MMR Unknown Completed [facility] MMR Unknown Completed [facility] Pneumococcal 7 Conjugate, PCV7 (Prevnar7) Unknown Completed [facility] IPV Unknown Completed [facility] IPV Unknown Completed [facility] IPV Unknown Completed [facility] Poliovirus, Live, Oral, Trivalent Unknown Completed [facility] TDAP Unknown Completed [facility] Varicella (varivax)(chicken pox) Unknown Completed [facility] Varicella (varivax)(chicken pox) Unknown [facility] Influenza Virus Vaccine Quad IM, Preserv and ABX Free 6 MO-64 YRS (FLUCELVAX) Unknown [facility]ine [facility] Com[facility] TDAP Unknown Completed [facility] Influenza Virus Vaccine Quad IM 3+ YRS Unknown Completed [facility] SARS-COV-2 COVID-19 VACCINE - (MODERNA) Unknown Completed [facility] DTaP, Unspecified Formulation Unknown Completed [facility] DTaP, Unspecified Formulation Unknown Completed [facility] DTaP, Unspecified Formulation Unknown Completed [facility] DTaP, Unspecified Formulation Unknown Completed [facility] DTaP, Unspecified Formulation Unknown Completed [facility] Influenza Virus Vaccine Quad .5 mL IM 6+ MO (FLUZONE/FLULAVAL/FLUA AMY) Unknown Completed [facility] Influenza Virus Vaccine Nasal Unknown Completed [facility] HEPATITIS A Unknown Completed [facility] HEPATITIS A Unknown Completed [facility] Hep B, Adol or Pedi Dosage Unknown Completed [facility] Hep B, Adol or Pedi Dosage Unknown Completed [facility] Hep B, Adol or Pedi Dosage Unknown Completed [facility] Haemophilus influenzae type b vaccine, conjugate unspecified formulation Unknown Completed [facility] Haemophilus influenzae type b vaccine, conjugate unspecified formulation Unknown Completed [facility] Haemophilus influenzae type b vaccine, conjugate unspecified formulation Unknown Completed [facility] Hib-HbOC Unknown Completed [facility] Hib-HbOC Unknown Completed [facility] HIB 4 Dose Schedule Unknown Completed [facility] HPV Unknown Completed [facility] Meningococcal Polysaccharide (groups A, C, Y and W-135) conjugate vaccine (MCV4P) Unknown Completed [facility] MMR Unknown Completed [facility] MMR Unknown Completed [facility] Pneumococcal 7 Conjugate, PCV7 (Prevnar7) Unknown Completed [facility] IPV Unknown Completed [facility] IPV Unknown Completed [facility] IPV Unknown Completed [facility] Poliovirus, Live, Oral, Trivalent Unknown Completed [facility] TDAP Unknown Completed [facility] Varicella (varivax)(chicken pox) Unknown Completed [facility] Varicella (varivax)(chicken pox) Unknown [facility] Influenza Virus Vaccine Quad IM, Preserv and ABX Free 6 MO-64 YRS (FLUCELVAX) Unknown Completed [facility] Influenza Virus Vaccine Unknown Completed [facility] TDAP Unknown Completed [facility] Influenza Virus Vaccine Quad IM 3+ YRS Unknown Completed [facility] SARS-COV-2 COVID-19 VACCINE - (MODERNA) Unknown Completed [facility] Influenza Virus Vaccine Unknown Completed [facility] DTaP, Unspecified Formulation Unknown Completed [facility] DTaP, Unspecified Formulation Unknown Completed [facility] DTaP, Unspecified Formulation Unknown Completed [facility] DTaP, Unspecified Formulation Unknown Completed [facility] DTaP, Unspecified Formulation Unknown Completed [facility] Influenza Virus Vaccine Quad .5 mL IM 6+ MO (FLUZONE/FLULAVAL/FLUA AMY) Unknown Completed [facility] Influenza Virus Vaccine Nasal Unknown Completed [facility] HEPATITIS A Unknown Completed [facility] HEPATITIS A Unknown Completed [facility] Hep B, Adol or Pedi Dosage Unknown Completed [facility] TDAP Unknown Completed [facility] Hep B, Adol or Pedi Dosage Unknown Completed [facility] Hep B, Adol or Pedi Dosage Unknown Completed [facility] Haemophilus influenzae type b vaccine, conjugate unspecified formulation Unknown Completed [facility] Haemophilus influenzae type b vaccine, conjugate unspecified formulation Unknown Completed [facility] Haemophilus influenzae type b vaccine, conjugate unspecified formulation [facility] [facility] H[facility]OC Unknown Completed [facility] Hib-HbOC Unknown Completed [facility] HIB 4 Dose Schedule Unknown Completed [facility] HPV Unknown Completed [facility] Meningococcal Polysaccharide (groups A, C, Y and W-135) conjugate vaccine (MCV4P) Unknown Completed [facility] Influenza Virus Vaccine Quad IM 3+ YRS Unknown Completed [facility] MMR Unknown Completed [facility] MMR Unknown Completed [facility] Pneumococcal 7 Conjugate, PCV7 (Prevnar7) Unknown Completed [facility] IPV Unknown Completed [facility] IPV Unknown Completed [facility] IPV Unknown Completed [facility] Poliovirus, Live, Oral, Trivalent Unknown Completed [facility] TDAP Unknown Completed [facility] Varicella (varivax)(chicken pox) Unknown Completed [facility] Varicella (varivax)(chicken pox) Unknown Completed [facility] SARS-COV-2 COVID-19 VACCINE - (MODERNA) Unknown Completed [facility] Influenza Virus Vaccine Quad IM, Preserv and ABX Free 6 MO-64 YRS (FLUCELVAX) Unknown Completed [facility] DTaP, Unspecified Formulation Unknown Completed [facility] Influenza Virus Vaccine Unknown Completed [facility] TDAP Unknown Completed [facility] Influenza Virus Vaccine Quad IM 3+ YRS Unknown Completed [facility] SARS-COV-2 COVID-19 VACCINE - (MODERNA) Unknown Completed [facility] DTaP, Unspecified Formulation Unknown Completed [facility] DTaP, Unspecified Formulation Unknown Completed [facility] DTaP, Unspecified Formulation Unknown Completed [facility] DTaP, Unspecified Formulation Unknown Completed [facility] DTaP, Unspecified Formulation Unknown Completed [facility] DTaP, Unspecified Formulation Unknown Completed [facility] Influenza Virus Vaccine Quad .5 mL IM 6+ MO (FLUZONE/FLULAVAL/FLUA AMY) Unknown Completed [facility] Influenza Virus Vaccine Nasal Unknown Completed [facility] HEPATITIS A Unknown Completed [facility] HEPATITIS A Unknown Completed [facility] Hep B, Adol or Pedi Dosage Unknown Completed [facility] Hep B, Adol or Pedi Dosage Unknown Completed [facility] Hep B, Adol or Pedi Dosage Unknown Completed [facility] DTaP, Unspecified Formulation Unknown Completed [facility] Haemophilus influenzae type b vaccine, conjugate unspecified formulation Unknown Completed [facility] Haemophilus influenzae type b vaccine, conjugate unspecified formulation Unknown Completed [facility] Haemophilus influenzae type b vaccine, conjugate unspecified formulation Unknown Completed [facility] Hib-HbOC Unknown Completed [facility] Hib-HbOC Unknown Completed [facility] HIB 4 Dose Schedule Unknown Completed [facility] HPV Unknown Completed [facility] Meningococcal Polysaccharide (groups A, C, Y and W-135) conjugate vaccine (MCV4P) Unknown Completed [facility] MMR Unknown Completed [facility] MMR Unknown Completed [facility] DTaP, Unspecified Formulation Unknown Completed [facility] Pneumococcal 7 Conjugate, PCV7 (Prevnar7) Unknown Completed [facility] IPV Unknown Completed [facility] IPV Unknown Completed [facility] IPV Unknown Completed [facility] Poliovirus, Live, Oral, Trivalent Unknown Completed [facility] TDAP Unknown Completed [facility] Varicella (varivax)(chicken pox) Unknown Completed [facility] Varicella (varivax)(chicken pox) Unknown Completed [facility] Influenza Virus Vaccine Quad IM, Preserv and ABX Free 6 MO-64 YRS (FLUCELVAX) Unknown [facility]P, Unspecified Formulation Unknown Completed [facility] Influenza Virus Vaccine Quad .5 mL IM 6+ MO (FLUZONE/FLULAVAL/FLUA AMY) Unknown Completed [facility] Influenza Virus Vaccine Nasal Unknown Completed [facility] Influenza Virus Vaccine Unknown Completed [facility] TDAP Unknown Completed [facility] Influenza Virus Vaccine Quad IM 3+ YRS Unknown Completed [facility] SARS-COV-2 COVID-19 VACCINE - (MODERNA) Unknown Completed [facility] DTaP, Unspecified Formulation Unknown Completed [facility] DTaP, Unspecified Formulation Unknown Completed [facility] DTaP, Unspecified Formulation Unknown Completed [facility] DTaP, Unspecified Formulation Unknown Completed [facility] HEPATITIS A Unknown Completed [facility] DTaP, Unspecified Formulation Unknown Completed [facility] Influenza Virus Vaccine Quad .5 mL IM 6+ MO (FLUZONE/FLULAVAL/FLUA AMY) Unknown Completed [facility] Influenza Virus Vaccine Nasal Unknown Completed [facility] HEPATITIS A Unknown Completed [facility] HEPATITIS A Unknown Completed [facility] Hep B, Adol or Pedi Dosage Unknown Completed [facility] Hep B, Adol or Pedi Dosage Unknown Completed [facility] Hep B, Adol or Pedi Dosage Unknown Completed [facility] Haemophilus influenzae type b vaccine, conjugate unspecified formulation Unknown Completed [facility] Haemophilus influenzae type b vaccine, conjugate unspecified formulation Unknown Completed [facility] HEPATITIS A Unknown Completed [facility] Haemophilus influenzae type b vaccine, conjugate unspecified formulation Unknown Completed [facility] Hib-HbOC Unknown Completed [facility] Hib-HbOC Unknown Completed [facility] HIB 4 Dose Schedule Unknown Completed [facility] HPV Unknown Completed [facility] Meningococcal Polysaccharide (groups A, C, Y and W-135) conjugate vaccine (MCV4P) Unknown Completed [facility] MMR Unknown Completed [facility] MMR Unknown Completed [facility] Pneumococcal 7 Conjugate, PCV7 (Prevnar7) Unknown Completed [facility] IPV Unknown Completed [facility] Hep B, Adol or Pedi Dosage Unknown Completed [facility] IPV Unknown Completed [facility] IPV Unknown Completed [facility] Poliovirus, Live, Oral, Trivalent Unknown Completed [facility] TDAP Unknown Completed [facility] Varicella (varivax)(chicken pox) Unknown Completed [facility] Varicella (varivax)(chicken pox) Unknown [facility] Influenza Virus Vaccine Quad IM, Preserv and ABX Free 6 MO-64 YRS (FLUCELVAX) Unknown [facility] B, Adol or Pedi Dosage Unknown Completed [facility] Hep B, Adol or Pedi Dosage Unknown Completed [facility] Haemophilus influenzae type b vaccine, conjugate unspecified formulation Unknown Completed [facility] Haemophilus influenzae type b vaccine, conjugate unspecified formulation Unknown Completed [facility] Influenza Virus Vaccine Unknown Completed [facility] TDAP Unknown Completed [facility] Influenza Virus Vaccine Quad IM 3+ YRS Unknown [facility] SARS-COV-2 COVID-19 VACCINE - (MODERNA) Unknown Completed [facility] DTaP, Unspecified Formulation Unknown Completed [facility] DTaP, Unspecified Formulation Unknown Completed [facility] DTaP, Unspecified Formulation Unknown Completed [facility] Haemophilus influenzae type b vaccine, conjugate unspecified formulation Unknown Completed [facility] DTaP, Unspecified Formulation Unknown Completed [facility] DTaP, Unspecified Formulation Unknown Completed [facility] Influenza Virus Vaccine Quad .5 mL IM 6+ MO (FLUZONE/FLULAVAL/FLUA AMY) Unknown Completed [facility] Influenza Virus Vaccine Nasal Unknown Completed [facility] HEPATITIS A Unknown Completed [facility] HEPATITIS A Unknown Completed [facility] Hep B, Adol or Pedi Dosage Unknown Completed [facility] Hep B, Adol or Pedi Dosage Unknown Completed [facility] Hep B, Adol or Pedi Dosage Unknown Completed [facility] Haemophilus influenzae type b vaccine, conjugate unspecified formulation Unknown Completed [facility] Hib-HbOC Unknown Completed [facility] Haemophilus influenzae type b vaccine, conjugate unspecified formulation Unknown Completed [facility] Haemophilus influenzae type b vaccine, conjugate unspecified formulation Unknown Completed [facility] Hib-HbOC Unknown Completed [facility] Hib-HbOC Unknown Completed [facility] HIB 4 Dose Schedule Unknown Completed [facility] HPV Unknown Completed [facility] Meningococcal Polysaccharide (groups A, C, Y and W-135) conjugate vaccine (MCV4P) Unknown Completed [facility] MMR Unknown Completed [facility] MMR Unknown Completed [facility] Pneumococcal 7 Conjugate, PCV7 (Prevnar7) Unknown Completed [facility] Hib-HbOC Unknown Completed [facility] IPV Unknown Completed [facility] IPV Unknown Completed [facility] IPV Unknown Completed [facility] Poliovirus, Live, Oral, Trivalent Unknown Completed [facility] TDAP Unknown Completed [facility] Varicella (varivax)(chicken pox) Unknown [facility] Varicella (varivax)(chicken pox) Unknown [facility] Influenza Virus Vaccine Quad IM, Preserv and ABX Free 6 MO-64 YRS (FLUCELVAX) Unknown [facility] 4 Dose Schedule Unknown Completed [facility] HPV Unknown Completed [facility] Meningococcal Polysaccharide (groups A, C, Y and W-135) conjugate vaccine (MCV4P) Unknown Completed [facility] MMR Unknown Completed [facility] Influenza Virus Vaccine Unknown Completed [facility] TDAP Unknown Completed [facility] Influenza Virus Vaccine Quad IM 3+ YRS Unknown Completed [facility] SARS-COV-2 COVID-19 VACCINE - (MODERNA) Unknown Completed [facility] DTaP, Unspecified Formulation Unknown Completed [facility] MMR Unknown Completed [facility] DTaP, Unspecified Formulation Unknown Completed [facility] DTaP, Unspecified Formulation Unknown Completed [facility] DTaP, Unspecified Formulation Unknown Completed [facility] DTaP, Unspecified Formulation Unknown Completed [facility] Influenza Virus Vaccine Quad .5 mL IM 6+ MO (FLUZONE/FLULAVAL/FLUA AMY) Unknown Completed [facility] Influenza Virus Vaccine Nasal Unknown Completed [facility] HEPATITIS A Unknown Completed [facility] HEPATITIS A Unknown Completed [facility] Hep B, Adol or Pedi Dosage Unknown Completed [facility] Hep B, Adol or Pedi Dosage Unknown Completed [facility] Pneumococcal 7 Conjugate, PCV7 (Prevnar7) Unknown Completed [facility] Hep B, Adol or Pedi Dosage Unknown Completed [facility] Haemophilus influenzae type b vaccine, conjugate unspecified formulation Unknown Completed [facility] Haemophilus influenzae type b vaccine, conjugate unspecified formulation Unknown Completed [facility] Haemophilus influenzae type b vaccine, conjugate unspecified formulation Unknown Completed [facility] Hib-HbOC Unknown Completed [facility] Hib-HbOC Unknown Completed [facility] HIB 4 Dose Schedule Unknown Completed [facility] HPV Unknown Completed [facility] Meningococcal Polysaccharide (groups A, C, Y and W-135) conjugate vaccine (MCV4P) Unknown Completed [facility] MMR Unknown Completed [facility] IPV Unknown Completed [facility] MMR Unknown Completed [facility] Pneumococcal 7 Conjugate, PCV7 (Prevnar7) Unknown Completed [facility] IPV Unknown Completed [facility] IPV Unknown Completed [facility] IPV Unknown Completed [facility] Poliovirus, Live, Oral, Trivalent Unknown Completed [facility] TDAP Unknown Completed [facility] Varicella (varivax)(chicken pox) Unknown Completed [facility] Varicella (varivax)(chicken pox) Unknown Completed [facility] Influenza Virus Vaccine Quad IM, Preserv and ABX Free 6 MO-64 YRS (FLUCELVAX) [facility] IPV Unknown Completed [facility] Poliovirus, Live, Oral, Trivalent Unknown Completed [facility] TDAP Unknown Completed [facility] Varicella (varivax)(chicken pox) Unknown Completed [facility] Varicella (varivax)(chicken pox) Unknown Completed [facility] Influenza Virus Vaccine Quad IM, Preserv and ABX Free 6 MO-64 YRS (FLUCELVAX) [facility] Vaccine [facility] Completed [facility] TDAP Unknown Completed [facility] Influenza Virus Vaccine Quad IM 3+ YRS Unknown Completed [facility] SARS-COV-2 COVID-19 VACCINE - (MODERNA) Unknown Completed [facility] DTaP, Unspecified Formulation Unknown Completed [facility] DTaP, Unspecified Formulation Unknown Completed [facility] DTaP, Unspecified Formulation Unknown Completed [facility] DTaP, Unspecified Formulation Unknown Completed [facility] DTaP, Unspecified Formulation Unknown Completed [facility] Influenza Virus Vaccine Quad .5 mL IM 6+ MO (FLUZONE/FLULAVAL/FLUA AMY) Unknown Completed [facility] Influenza Virus Vaccine Nasal Unknown Completed [facility] HEPATITIS A Unknown Completed [facility] HEPATITIS A Unknown Completed [facility] Hep B, Adol or Pedi Dosage Unknown Completed [facility] Hep B, Adol or Pedi Dosage Unknown Completed [facility] Hep B, Adol or Pedi Dosage Unknown Completed [facility] Haemophilus influenzae type b vaccine, conjugate unspecified formulation Unknown Completed [facility] Haemophilus influenzae type b vaccine, conjugate unspecified formulation Unknown Completed [facility] Haemophilus influenzae type b vaccine, conjugate unspecified formulation Unknown Completed [facility] Hib-HbOC Unknown Completed [facility] Hib-HbOC Unknown Completed [facility] HIB 4 Dose Schedule Unknown Completed [facility] HPV Unknown Completed [facility] Meningococcal Polysaccharide (groups A, C, Y and W-135) conjugate vaccine (MCV4P) Unknown Completed [facility] MMR Unknown Completed [facility] MMR Unknown Completed [facility] Pneumococcal 7 Conjugate, PCV7 (Prevnar7) Unknown Completed [facility] IPV Unknown Completed [facility] IPV Unknown Completed [facility] IPV Unknown Completed [facility] Poliovirus, Live, Oral, Trivalent Unknown Completed [facility] TDAP Unknown Completed [facility] Varicella (varivax)(chicken pox) Unknown Completed [facility] Varicella (varivax)(chicken pox) Unknown Completed [facility] Influenza Virus Vaccine Quad IM, Preserv and ABX Free 6 MO-64 YRS (FLUCELVAX) Unknown Completed [facility] Influenza Virus Vaccine Unknown Completed [facility] TDAP Unknown Completed [facility] Influenza Virus Vaccine Quad IM 3+ YRS Unknown Completed [facility] SARS-COV-2 COVID-19 VACCINE - (MODERNA) Unknown Completed [facility] DTaP, Unspecified Formulation Unknown Completed [facility] DTaP, Unspecified Formulation Unknown Completed [facility] DTaP, Unspecified Formulation Unknown Completed [facility] DTaP, Unspecified Formulation Unknown Completed [facility] DTaP, Unspecified Formulation Unknown Completed [facility] Influenza Virus Vaccine Quad .5 mL IM 6+ MO (FLUZONE/FLULAVAL/FLUA AMY) Unknown Completed [facility] Influenza Virus Vaccine Nasal Unknown Completed [facility] HEPATITIS A Unknown Completed [facility] HEPATITIS A Unknown Completed [facility] Hep B, Adol or Pedi Dosage Unknown Completed [facility] Hep B, Adol or Pedi Dosage Unknown Completed [facility] Hep B, Adol or Pedi Dosage Unknown Completed [facility] Haemophilus influenzae type b vaccine, conjugate unspecified formulation Unknown Completed [facility] Haemophilus influenzae type b vaccine, conjugate unspecified formulation Unknown Completed [facility] Haemophilus influenzae type b vaccine, conjugate unspecified formulation Unknown Completed [facility] Hib-HbOC Unknown Completed [facility] Hib-HbOC Unknown Completed [facility] HIB 4 Dose Schedule Unknown Completed [facility] HPV Unknown Completed [facility] Meningococcal Polysaccharide (groups A, C, Y and W-135) conjugate vaccine (MCV4P) Unknown Completed [facility] MMR Unknown Completed [facility] MMR Unknown Completed [facility] Pneumococcal 7 Conjugate, PCV7 (Prevnar7) Unknown Completed [facility] Influenza Virus Vaccine Unknown Completed [facility] IPV Unknown Completed [facility] IPV Unknown Completed [facility] IPV Unknown Completed [facility] Poliovirus, Live, Oral, Trivalent Unknown Completed [facility] TDAP Unknown Completed [facility] Varicella (varivax)(chicken pox) Unknown Completed [facility] Varicella (varivax)(chicken pox) Unknown Completed [facility] Influenza Virus Vaccine Quad IM, Preserv and ABX Free 6 MO-64 YRS (FLUCELVAX) Unknown [facility] TD[facility] Unknown Completed [facility] Influenza Virus Vaccine Unknown Completed [facility] TDAP Unknown Completed [facility] Influenza Virus Vaccine Quad IM 3+ YRS Unknown Completed [facility] SARS-COV-2 COVID-19 VACCINE - (MODERNA) Unknown Completed [facility] DTaP, Unspecified Formulation Unknown Completed [facility] DTaP, Unspecified Formulation Unknown Completed [facility] DTaP, Unspecified Formulation Unknown Completed [facility] DTaP, Unspecified Formulation Unknown Completed [facility] Influenza Virus Vaccine Quad IM 3+ YRS [facility], Unspecified Formulation Unknown Completed [facility] Influenza Virus Vaccine Quad .5 mL IM 6+ MO (FLUZONE/FLULAVAL/FLUA AYM) Unknown Completed [facility] Influenza Virus Vaccine Nasal Unknown Completed [facility] HEPATITIS A Unknown Completed [facility] HEPATITIS A Unknown Completed [facility] Hep B, Adol or Pedi Dosage Unknown Completed [facility] Hep B, Adol or Pedi Dosage Unknown Completed [facility] Hep B, Adol or Pedi Dosage Unknown Completed [facility] Haemophilus influenzae type b vaccine, conjugate unspecified formulation Unknown Completed [facility] Haemophilus influenzae type b vaccine, conjugate unspecified formulation Unknown Completed [facility] SARS-COV-2 COVID-19 VACCINE - (MODERNA) Unknown Completed [facility] Haemophilus influenzae type b vaccine, conjugate unspecified formulation Unknown Completed [facility] Hib-HbOC Unknown Completed [facility] Hib-HbOC Unknown Completed [facility] HIB 4 Dose Schedule Unknown Completed [facility] HPV Unknown Completed [facility] Meningococcal Polysaccharide (groups A, C, Y and W-135) conjugate vaccine (MCV4P) Unknown Completed [facility] MMR Unknown Completed [facility] MMR Unknown Completed [facility] Pneumococcal 7 Conjugate, PCV7 (Prevnar7) Unknown Completed [facility] IPV Unknown Completed [facility] DTaP, Unspecified Formulation Unknown Completed [facility] IPV Unknown Completed [facility] IPV Unknown Completed [facility] Poliovirus, Live, Oral, Trivalent Unknown Completed [facility] TDAP Unknown Completed [facility] Varicella (varivax)(chicken pox) Unknown Completed [facility] Varicella (varivax)(chicken pox) Unknown Completed [facility] Influenza Virus Vaccine Quad IM, Preserv and ABX Free 6 MO-64 YRS (FLUCELVAX) Unknown [facility] DTaP, Unspecified Formulation Unknown Completed [facility] Influenza Virus Vaccine Unknown Completed [facility] TDAP Unknown Completed [facility] Influenza Virus Vaccine Quad IM 3+ YRS Unknown Completed [facility] SARS-COV-2 COVID-19 VACCINE - (MODERNA) Unknown Completed [facility] DTaP, Unspecified Formulation Unknown Completed [facility] DTaP, Unspecified Formulation Unknown Completed [facility] DTaP, Unspecified Formulation Unknown Completed [facility] DTaP, Unspecified Formulation Unknown Completed [facility] DTaP, Unspecified Formulation Unknown Completed [facility] DTaP, Unspecified Formulation Unknown Completed [facility] Influenza Virus Vaccine Quad .5 mL IM 6+ MO (FLUZONE/FLULAVAL/FLUA AMY) Unknown Completed [facility] Influenza Virus Vaccine Nasal Unknown Completed [facility] HEPATITIS A Unknown Completed [facility] HEPATITIS A Unknown Completed [facility] Hep B, Adol or Pedi Dosage Unknown Completed [facility] Hep B, Adol or Pedi Dosage Unknown Completed [facility] Hep B, Adol or Pedi Dosage Unknown Completed [facility] Haemophilus influenzae type b vaccine, conjugate unspecified formulation Unknown Completed [facility] Haemophilus influenzae type b vaccine, conjugate unspecified formulation Unknown Completed [facility] DTaP, Unspecified Formulation Unknown Completed [facility] Haemophilus influenzae type b vaccine, conjugate unspecified formulation Unknown Completed [facility] Hib-HbOC Unknown Completed [facility] Hib-HbOC Unknown Completed [facility] HIB 4 Dose Schedule Unknown Completed [facility] HPV Unknown Completed [facility] Meningococcal Polysaccharide (groups A, C, Y and W-135) conjugate vaccine (MCV4P) Unknown Completed [facility] MMR Unknown Completed [facility] MMR Unknown Completed [facility] Pneumococcal 7 Conjugate, PCV7 (Prevnar7) Unknown Completed [facility] IPV Unknown Completed [facility] DTaP, Unspecified Formulation Unknown Completed [facility] IPV Unknown Completed [facility] IPV Unknown Completed [facility] Poliovirus, Live, Oral, Trivalent Unknown Completed [facility] TDAP Unknown Completed [facility] Varicella (varivax)(chicken pox) Unknown [facility] Varicella (varivax)(chicken pox) Unknown Com[facility] Influenza Virus Vaccine Quad IM, Preserv and ABX Free 6 MO-64 YRS (FLUCELVAX) Unknown [facility] Influ[facility] Virus Vaccine Quad .5 mL IM 6+ MO (FLUZONE/FLULAVAL/FLUA AMY) Unknown Completed [facility] Influenza Virus Vaccine Nasal Unknown Completed [facility] HEPATITIS A Unknown Completed [facility] Influenza Virus Vaccine Unknown Completed [facility] TDAP Unknown Completed [facility] Influenza Virus Vaccine Quad IM 3+ YRS Unknown Com[facility] SARS-COV-2 COVID-19 VACCINE - (MODERNA) Unknown Completed [facility] DTaP, Unspecified Formulation Unknown Completed [facility] DTaP, Unspecified Formulation Unknown Completed [facility] DTaP, Unspecified Formulation Unknown Completed [facility] DTaP, Unspecified Formulation Unknown Completed [facility] HEPATITIS A Unknown Completed [facility] DTaP, Unspecified Formulation Unknown Completed [facility] Influenza Virus Vaccine Quad .5 mL IM 6+ MO (FLUZONE/FLULAVAL/FLUA AMY) Unknown Completed [facility] Influenza Virus Vaccine Nasal Unknown Completed [facility] HEPATITIS A Unknown Completed [facility] HEPATITIS A Unknown Completed [facility] Hep B, Adol or Pedi Dosage Unknown Completed [facility] Hep B, Adol or Pedi Dosage Unknown Completed [facility] Hep B, Adol or Pedi Dosage Unknown Completed [facility] Haemophilus influenzae type b vaccine, conjugate unspecified formulation Unknown Completed [facility] Haemophilus influenzae type b vaccine, conjugate unspecified formulation Unknown Completed [facility] Hep B, Adol or Pedi Dosage Unknown Completed [facility] Haemophilus influenzae type b vaccine, conjugate unspecified formulation Unknown Completed [facility] Hib-HbOC Unknown Completed [facility] Hib-HbOC Unknown Completed [facility] HIB 4 Dose Schedule Unknown Completed [facility] HPV Unknown Completed [facility] Meningococcal Polysaccharide (groups A, C, Y and W-135) conjugate vaccine (MCV4P) Unknown Completed [facility] MMR Unknown Completed [facility] MMR Unknown Completed [facility] Pneumococcal 7 Conjugate, PCV7 (Prevnar7) Unknown Completed [facility] IPV Unknown Completed [facility] Hep B, Adol or Pedi Dosage Unknown Completed [facility] IPV Unknown Completed [facility] IPV Unknown Completed [facility] Poliovirus, Live, Oral, Trivalent Unknown Completed [facility] TDAP Unknown Completed [facility] Varicella (varivax)(chicken pox) Unknown Completed [facility] Varicella (varivax)(chicken pox) Unknown Completed [facility] Influenza Virus Vaccine Quad IM, Preserv and ABX Free 6 MO-64 YRS (FLUCELVAX) Unknown [facility] Hep B, Adol or Pedi Dosage Unknown Completed [facility] Influenza Virus Vaccine Unknown Completed [facility] TDAP Unknown Completed [facility] Influenza Virus Vaccine Quad IM 3+ YRS Unknown Completed [facility] SARS-COV-2 COVID-19 VACCINE - (MODERNA) Unknown Completed [facility] DTaP, Unspecified Formulation Unknown Completed [facility] DTaP, Unspecified Formulation Unknown Completed [facility] DTaP, Unspecified Formulation Unknown Completed [facility] Haemophilus influenzae type b vaccine, conjugate unspecified formulation Unknown Completed [facility] DTaP, Unspecified Formulation Unknown Completed [facility] DTaP, Unspecified Formulation Unknown Completed [facility] Influenza Virus Vaccine Quad .5 mL IM 6+ MO (FLUZONE/FLULAVAL/FLUA AMY) Unknown Completed [facility] Influenza Virus Vaccine Nasal Unknown Completed [facility] HEPATITIS A Unknown Completed [facility] HEPATITIS A Unknown Completed [facility] Hep B, Adol or Pedi Dosage Unknown Completed [facility] Hep B, Adol or Pedi Dosage Unknown Completed [facility] Hep B, Adol or Pedi Dosage Unknown Completed [facility] Haemophilus influenzae type b vaccine, conjugate unspecified formulation Unknown Completed [facility] Haemophilus influenzae type b vaccine, conjugate unspecified formulation Unknown Completed [facility] Haemophilus influenzae type b vaccine, conjugate unspecified formulation Unknown Completed [facility] Haemophilus influenzae type b vaccine, conjugate unspecified formulation Unknown Completed [facility] Hib-HbOC Unknown Completed [facility] Hib-HbOC Unknown Completed [facility] HIB 4 Dose Schedule Unknown Completed [facility] HPV Unknown Completed [facility] Meningococcal Polysaccharide (groups A, C, Y and W-135) conjugate vaccine (MCV4P) Unknown Completed [facility] MMR Unknown Completed [facility] MMR Unknown Completed [facility] Pneumococcal 7 Conjugate, PCV7 (Prevnar7) Unknown Completed [facility] Haemophilus influenzae type b vaccine, conjugate unspecified formulation Unknown Completed [facility] IPV Unknown Completed [facility] IPV Unknown Completed [facility] IPV Unknown Completed [facility] Poliovirus, Live, Oral, Trivalent Unknown Completed [facility] TDAP Unknown Completed [facility] Varicella (varivax)(chicken pox) Unknown Completed [facility] Varicella (varivax)(chicken pox) Unknown Completed [facility] Influenza Virus Vaccine Quad IM, Preserv and ABX Free 6 MO-64 YRS (FLUCELVAX) Unknown [facility] Hib-HbOC Unknown Completed [facility] Hib-HbOC Unknown Completed [facility] HIB 4 Dose Schedule Unknown Completed [facility] Influenza Virus Vaccine Unknown Completed [facility] TDAP Unknown Completed [facility] Influenza Virus Vaccine Quad IM 3+ YRS Unknown Completed [facility] SARS-COV-2 COVID-19 VACCINE - (MODERNA) Unknown Completed [facility] HPV Unknown Completed [facility] DTaP, Unspecified Formulation Unknown Completed [facility] DTaP, Unspecified Formulation Unknown Completed [facility] DTaP, Unspecified Formulation Unknown Completed [facility] DTaP, Unspecified Formulation Unknown Completed [facility] DTaP, Unspecified Formulation Unknown Completed [facility] Influenza Virus Vaccine Quad .5 mL IM 6+ MO (FLUZONE/FLULAVAL/FLUA AMY) Unknown Completed [facility] Influenza Virus Vaccine Nasal Unknown Completed [facility] HEPATITIS A Unknown Completed [facility] HEPATITIS A Unknown Completed [facility] Hep B, Adol or Pedi Dosage Unknown Completed [facility] Meningococcal Polysaccharide (groups A, C, Y and W-135) conjugate vaccine (MCV4P) Unknown Completed [facility] Hep B, Adol or Pedi Dosage Unknown Completed [facility] Hep B, Adol or Pedi Dosage Unknown Completed [facility] Haemophilus influenzae type b vaccine, conjugate unspecified formulation Unknown Completed [facility] Haemophilus influenzae type b vaccine, conjugate unspecified formulation Unknown Completed [facility] Haemophilus influenzae type b vaccine, conjugate unspecified formulation Unknown Completed [facility] Hib-HbOC Unknown Completed [facility] Hib-HbOC Unknown Completed [facility] HIB 4 Dose Schedule Unknown Completed [facility] HPV Unknown Completed [facility] Meningococcal Polysaccharide (groups A, C, Y and W-135) conjugate vaccine (MCV4P) Unknown Completed [facility] MMR Unknown Completed [facility] MMR Unknown Completed [facility] MMR Unknown Completed [facility] Pneumococcal 7 Conjugate, PCV7 (Prevnar7) Unknown Completed [facility] IPV Unknown Completed [facility] IPV Unknown Completed [facility] IPV Unknown Completed [facility] Poliovirus, Live, Oral, Trivalent Unknown Completed [facility] TDAP Unknown Completed [facility] Varicella (varivax)(chicken pox) Unknown Completed [facility] Varicella (varivax)(chicken pox) Unknown Completed [facility] MMR Unknown Completed [facility] Influenza Virus Vaccine Quad IM, Preserv and ABX Free 6 MO-64 YRS (FLUCELVAX) Unknown [facility] Pneumococcal 7 Conjugate, PCV7 (Prevnar7) Unknown Completed [facility] IPV Unknown Completed [facility] IPV Unknown Completed [facility] IPV Unknown Completed [facility] Poliovirus, Live, Oral, Trivalent Unknown Completed [facility] TDAP Unknown Completed [facility] Varicella (varivax)(chicken pox) Unknown Completed [facility] Varicella (varivax)(chicken pox) Unknown Completed [facility] Influenza Virus Vaccine Quad IM, Preserv and ABX Free 6 MO-64 YRS (FLUCELVAX) Unknown [facility] Influenza Virus Vaccine Unknown Completed [facility] TDAP Unknown Completed [facility] Influenza Virus Vaccine Quad IM 3+ YRS Unknown Completed [facility] SARS-COV-2 COVID-19 VACCINE - (MODERNA) Unknown Completed [facility] DTaP, Unspecified Formulation Unknown Completed [facility] DTaP, Unspecified Formulation Unknown Completed [facility] DTaP, Unspecified Formulation Unknown Completed [facility] DTaP, Unspecified Formulation Unknown Completed [facility] DTaP, Unspecified Formulation Unknown Completed [facility] Influenza Virus Vaccine Quad .5 mL IM 6+ MO (FLUZONE/FLULAVAL/FLUA AMY) Unknown Completed [facility] Influenza Virus Vaccine Nasal Unknown Completed [facility] HEPATITIS A Unknown Completed [facility] HEPATITIS A Unknown Completed [facility] Hep B, Adol or Pedi Dosage Unknown Completed [facility] Hep B, Adol or Pedi Dosage Unknown Completed [facility] Hep B, Adol or Pedi Dosage Unknown Completed [facility] Haemophilus influenzae type b vaccine, conjugate unspecified formulation Unknown Completed [facility] Haemophilus influenzae type b vaccine, conjugate unspecified formulation Unknown Completed [facility] Haemophilus influenzae type b vaccine, conjugate unspecified formulation Unknown Completed [facility] Hib-HbOC Unknown Completed [facility] Hib-HbOC Unknown Completed [facility] HIB 4 Dose Schedule Unknown Completed [facility] HPV Unknown Completed [facility] Meningococcal Polysaccharide (groups A, C, Y and W-135) conjugate vaccine (MCV4P) Unknown Completed [facility] MMR Unknown Completed [facility] MMR Unknown Completed [facility] Pneumococcal 7 Conjugate, PCV7 (Prevnar7) Unknown Completed [facility] IPV Unknown Completed [facility] IPV Unknown Completed [facility] IPV Unknown Completed [facility] Poliovirus, Live, Oral, Trivalent Unknown Completed [facility] TDAP Unknown Completed [facility] Varicella (varivax)(chicken pox) Unknown Completed [facility] Varicella (varivax)(chicken pox) Unknown Completed [facility] Influenza Virus Vaccine Quad IM, Preserv and ABX Free 6 MO-64 YRS (FLUCELVAX) Unknown [facility] Influenza Virus Vaccine Unknown Completed [facility] TDAP Unknown Completed [facility] Influenza Virus Vaccine Quad IM 3+ YRS Unknown Com[facility] SARS-COV-2 COVID-19 VACCINE - (MODERNA) Unknown Completed [facility] DTaP, Unspecified Formulation Unknown Completed [facility] DTaP, Unspecified Formulation Unknown Completed [facility] DTaP, Unspecified Formulation Unknown Completed [facility] DTaP, Unspecified Formulation Unknown Completed [facility] DTaP, Unspecified Formulation Unknown Completed [facility] Influenza Virus Vaccine Quad .5 mL IM 6+ MO (FLUZONE/FLULAVAL/FLUA AMY) Unknown Completed [facility] Influenza Virus Vaccine Nasal Unknown Completed [facility] HEPATITIS A Unknown Completed [facility] HEPATITIS A Unknown Completed [facility] Hep B, Adol or Pedi Dosage Unknown Completed [facility] Hep B, Adol or Pedi Dosage Unknown Completed [facility] Hep B, Adol or Pedi Dosage Unknown Completed [facility] Haemophilus influenzae type b vaccine, conjugate unspecified formulation Unknown Completed [facility] Haemophilus influenzae type b vaccine, conjugate unspecified formulation Unknown Completed [facility] Haemophilus influenzae type b vaccine, conjugate unspecified formulation Unknown Completed [facility] Hib-HbOC Unknown Completed [facility] Hib-HbOC Unknown Completed [facility] HIB 4 Dose Schedule Unknown Completed [facility] HPV Unknown Completed [facility] Meningococcal Polysaccharide (groups A, C, Y and W-135) conjugate vaccine (MCV4P) Unknown Completed [facility] MMR Unknown Completed [facility] MMR Unknown Completed [facility] Pneumococcal 7 Conjugate, PCV7 (Prevnar7) Unknown Completed [facility] IPV Unknown Completed [facility] IPV Unknown Completed [facility] IPV Unknown Completed [facility] Poliovirus, Live, Oral, Trivalent Unknown Completed [facility] TDAP Unknown Completed [facility] Varicella (varivax)(chicken pox) Unknown Completed [facility] Varicella (varivax)(chicken pox) Unknown Completed [facility] Influenza Virus Vaccine Quad IM, Preserv and ABX Free 6 MO-64 YRS (FLUCELVAX) Unknown [facility] Influenza Virus Vaccine Unknown Completed [facility] TDAP Unknown Completed [facility] Influenza Virus Vaccine Quad IM 3+ YRS Unknown Completed [facility] SARS-COV-2 COVID-19 VACCINE - (MODERNA) Unknown Completed [facility] DTaP, Unspecified Formulation Unknown Completed [facility] DTaP, Unspecified Formulation Unknown Completed [facility] DTaP, Unspecified Formulation Unknown Completed [facility] DTaP, Unspecified Formulation Unknown Completed [facility] DTaP, Unspecified Formulation Unknown Completed [facility] Influenza Virus Vaccine Quad .5 mL IM 6+ MO (FLUZONE/FLULAVAL/FLUA AMY) Unknown Completed [facility] Influenza Virus Vaccine Nasal Unknown Completed [facility] HEPATITIS A Unknown Completed [facility] HEPATITIS A Unknown Completed [facility] Hep B, Adol or Pedi Dosage Unknown Completed [facility] Hep B, Adol or Pedi Dosage Unknown Completed [facility] Hep B, Adol or Pedi Dosage Unknown Completed [facility] Haemophilus influenzae type b vaccine, conjugate unspecified formulation Unknown Completed [facility] Haemophilus influenzae type b vaccine, conjugate unspecified formulation Unknown Completed [facility] Haemophilus influenzae type b vaccine, conjugate unspecified formulation Unknown Completed [facility] Hib-HbOC Unknown Completed [facility] Hib-HbOC Unknown Completed [facility] HIB 4 Dose Schedule Unknown Completed [facility] HPV Unknown Completed [facility] Meningococcal Polysaccharide (groups A, C, Y and W-135) conjugate vaccine (MCV4P) Unknown Completed [facility] MMR Unknown Completed [facility] MMR Unknown Completed [facility] Pneumococcal 7 Conjugate, PCV7 (Prevnar7) Unknown Completed [facility] IPV Unknown Completed [facility] IPV Unknown Completed [facility] IPV Unknown Completed [facility] Poliovirus, Live, Oral, Trivalent Unknown Completed [facility] TDAP Unknown Completed [facility] Varicella (varivax)(chicken pox) Unknown Completed [facility] Varicella (varivax)(chicken pox) Unknown Completed [facility] Influenza Virus Vaccine Quad IM, Preserv and ABX Free 6 MO-64 YRS (FLUCELVAX) Unknown [facility] Influenza Virus Vaccine Unknown Completed [facility] TDAP Unknown Completed [facility] Influenza Virus Vaccine Quad IM 3+ YRS Unknown Completed [facility] SARS-COV-2 COVID-19 VACCINE - (MODERNA) Unknown Completed [facility] DTaP, Unspecified Formulation Unknown Completed [facility] DTaP, Unspecified Formulation Unknown Completed [facility] DTaP, Unspecified Formulation Unknown Completed [facility] DTaP, Unspecified Formulation Unknown Completed [facility] DTaP, Unspecified Formulation Unknown Completed [facility] Influenza Virus Vaccine Quad .5 mL IM 6+ MO (FLUZONE/FLULAVAL/FLUA AMY) Unknown Completed [facility] Influenza Virus Vaccine Nasal Unknown Completed [facility] HEPATITIS A Unknown Completed [facility] HEPATITIS A Unknown Completed [facility] Hep B, Adol or Pedi Dosage Unknown Completed [facility] Hep B, Adol or Pedi Dosage Unknown Completed [facility] Hep B, Adol or Pedi Dosage Unknown Completed [facility] Haemophilus influenzae type b vaccine, conjugate unspecified formulation Unknown Completed [facility] Haemophilus influenzae type b vaccine, conjugate unspecified formulation Unknown Completed [facility] Haemophilus influenzae type b vaccine, conjugate unspecified formulation Unknown Completed [facility] Hib-HbOC Unknown Completed [facility] Hib-HbOC Unknown Completed [facility] HIB 4 Dose Schedule Unknown Completed [facility] HPV Unknown Completed [facility] Meningococcal Polysaccharide (groups A, C, Y and W-135) conjugate vaccine (MCV4P) Unknown Completed [facility] MMR Unknown Completed [facility] MMR Unknown Completed [facility] Pneumococcal 7 Conjugate, PCV7 (Prevnar7) Unknown Completed [facility] IPV Unknown Completed [facility] IPV Unknown Completed [facility] IPV Unknown Completed [facility] Poliovirus, Live, Oral, Trivalent Unknown Completed [facility] TDAP Unknown Completed [facility] Varicella (varivax)(chicken pox) Unknown Com[facility] Varicella (varivax)(chicken pox) Unknown Com[facility] Influenza Virus Vaccine Quad IM, Preserv and ABX Free 6 MO-64 YRS (FLUCELVAX) Unknown [facility] Influenza Virus Vaccine Unknown Completed [facility] TDAP Unknown Completed [facility] Influenza Virus Vaccine Quad IM 3+ YRS Unknown Completed [facility] SARS-COV-2 COVID-19 VACCINE - (MODERNA) Unknown Completed [facility] DTaP, Unspecified Formulation Unknown Completed [facility] DTaP, Unspecified Formulation Unknown Completed [facility] DTaP, Unspecified Formulation Unknown Completed [facility] DTaP, Unspecified Formulation Unknown Completed [facility] DTaP, Unspecified Formulation Unknown Completed [facility] Influenza Virus Vaccine Quad .5 mL IM 6+ MO (FLUZONE/FLULAVAL/FLUA AMY) Unknown Completed [facility] Influenza Virus Vaccine Nasal Unknown Completed [facility] HEPATITIS A Unknown Completed [facility] HEPATITIS A Unknown Completed [facility] Hep B, Adol or Pedi Dosage Unknown Completed [facility] Hep B, Adol or Pedi Dosage Unknown Completed [facility] Hep B, Adol or Pedi Dosage Unknown Completed [facility] Haemophilus influenzae type b vaccine, conjugate unspecified formulation Unknown Completed [facility] Haemophilus influenzae type b vaccine, conjugate unspecified formulation Unknown Completed [facility] Haemophilus influenzae type b vaccine, conjugate unspecified formulation Unknown Completed [facility] Hib-HbOC Unknown Completed [facility] Hib-HbOC Unknown Completed [facility] HIB 4 Dose Schedule Unknown Completed [facility] HPV Unknown Completed [facility] Meningococcal Polysaccharide (groups A, C, Y and W-135) conjugate vaccine (MCV4P) Unknown Completed [facility] MMR Unknown Completed [facility] MMR Unknown Completed [facility] Pneumococcal 7 Conjugate, PCV7 (Prevnar7) Unknown Completed [facility] IPV Unknown Completed [facility] IPV Unknown Completed [facility] IPV Unknown Completed [facility] Poliovirus, Live, Oral, Trivalent Unknown Completed [facility] TDAP Unknown Completed [facility] Varicella (varivax)(chicken pox) Unknown Completed [facility] Varicella (varivax)(chicken pox) Unknown Completed [facility] Influenza Virus Vaccine Quad IM, Preserv and ABX Free 6 MO-64 YRS (FLUCELVAX) Unknown [facility] Influ[facility] Vaccine Unknown Completed [facility] TDAP Unknown Completed [facility] Influenza Virus Vaccine Quad IM 3+ YRS Unknown Completed [facility] SARS-COV-2 COVID-19 VACCINE - (MODERNA) Unknown Completed [facility] DTaP, Unspecified Formulation Unknown Completed [facility] DTaP, Unspecified Formulation Unknown Completed [facility] DTaP, Unspecified Formulation Unknown Completed [facility] DTaP, Unspecified Formulation Unknown Completed [facility] DTaP, Unspecified Formulation Unknown Completed [facility] Influenza Virus Vaccine Quad .5 mL IM 6+ MO (FLUZONE/FLULAVAL/FLUA AMY) Unknown Completed [facility] Influenza Virus Vaccine Nasal Unknown Completed [facility] HEPATITIS A Unknown Completed [facility] HEPATITIS A Unknown Completed [facility] Hep B, Adol or Pedi Dosage Unknown Completed [facility] Hep B, Adol or Pedi Dosage Unknown Completed [facility] Hep B, Adol or Pedi Dosage Unknown Completed [facility] Haemophilus influenzae type b vaccine, conjugate unspecified formulation Unknown Completed [facility] Haemophilus influenzae type b vaccine, conjugate unspecified formulation Unknown Completed [facility] Haemophilus influenzae type b vaccine, conjugate unspecified formulation Unknown Completed [facility] Hib-HbOC Unknown Completed [facility] Hib-HbOC Unknown Completed [facility] HIB 4 Dose Schedule Unknown Completed [facility] HPV Unknown Completed [facility] Meningococcal Polysaccharide (groups A, C, Y and W-135) conjugate vaccine (MCV4P) Unknown Completed [facility] MMR Unknown Completed [facility] MMR Unknown Completed [facility] Pneumococcal 7 Conjugate, PCV7 (Prevnar7) Unknown Completed [facility] IPV Unknown Completed [facility] IPV Unknown Completed [facility] IPV Unknown Completed [facility] Poliovirus, Live, Oral, Trivalent Unknown Completed [facility] TDAP Unknown Completed [facility] Varicella (varivax)(chicken pox) Unknown Completed [facility] Varicella (varivax)(chicken pox) Unknown Completed [facility] Influenza Virus Vaccine Quad IM, Preserv and ABX Free 6 MO-64 YRS (FLUCELVAX) Unknown [facility] Virus Vaccine Unknown Completed [facility] TDAP Unknown Completed [facility] Influenza Virus Vaccine Quad IM 3+ YRS Unknown Completed [facility] SARS-COV-2 COVID-19 VACCINE - (MODERNA) Unknown Completed [facility] DTaP, Unspecified Formulation Unknown Completed [facility] DTaP, Unspecified Formulation Unknown Completed [facility] DTaP, Unspecified Formulation Unknown Completed [facility] DTaP, Unspecified Formulation Unknown Completed [facility] DTaP, Unspecified Formulation Unknown Completed [facility] Influenza Virus Vaccine Quad .5 mL IM 6+ MO (FLUZONE/FLULAVAL/FLUA AMY) Unknown Completed [facility] Influenza Virus Vaccine Nasal Unknown Completed [facility] HEPATITIS A Unknown Completed [facility] HEPATITIS A Unknown Completed [facility] Hep B, Adol or Pedi Dosage Unknown Completed [facility] Hep B, Adol or Pedi Dosage Unknown Completed [facility] Hep B, Adol or Pedi Dosage Unknown Completed [facility] Haemophilus influenzae type b vaccine, conjugate unspecified formulation Unknown Completed [facility] Haemophilus influenzae type b vaccine, conjugate unspecified formulation Unknown Completed [facility] Haemophilus influenzae type b vaccine, conjugate unspecified formulation Unknown Completed [facility] Hib-HbOC Unknown Completed [facility] Hib-HbOC Unknown Completed [facility] HIB 4 Dose Schedule Unknown Completed [facility] HPV Unknown Completed [facility] Meningococcal Polysaccharide (groups A, C, Y and W-135) conjugate vaccine (MCV4P) Unknown Completed [facility] MMR Unknown Completed [facility] MMR Unknown Completed [facility] Pneumococcal 7 Conjugate, PCV7 (Prevnar7) Unknown Completed [facility] IPV Unknown Completed [facility] IPV Unknown Completed [facility] IPV Unknown Completed [facility] Poliovirus, Live, Oral, Trivalent Unknown Completed [facility] TDAP Unknown Completed [facility] Varicella (varivax)(chicken pox) Unknown Completed [facility] Varicella (varivax)(chicken pox) Unknown Completed [facility] Influenza Virus Vaccine Quad IM, Preserv and ABX Free 6 MO-64 YRS (FLUCELVAX) Unknown [facility] Virus Vaccine Unknown Completed [facility] TDAP Unknown Completed [facility] Influenza Virus Vaccine Quad IM 3+ YRS Unknown Completed [facility] SARS-COV-2 COVID-19 VACCINE - (MODERNA) Unknown Completed [facility] DTaP, Unspecified Formulation Unknown Completed [facility] DTaP, Unspecified Formulation Unknown Completed [facility] DTaP, Unspecified Formulation Unknown Completed [facility] DTaP, Unspecified Formulation Unknown Completed [facility] DTaP, Unspecified Formulation Unknown Completed [facility] Influenza Virus Vaccine Quad .5 mL IM 6+ MO (FLUZONE/FLULAVAL/FLUA AMY) Unknown Completed [facility] Influenza Virus Vaccine Nasal Unknown Completed [facility] HEPATITIS A Unknown Completed [facility] HEPATITIS A Unknown Completed [facility] Hep B, Adol or Pedi Dosage Unknown Completed [facility] Hep B, Adol or Pedi Dosage Unknown Completed [facility] Hep B, Adol or Pedi Dosage Unknown Completed [facility] Haemophilus influenzae type b vaccine, conjugate unspecified formulation Unknown Completed [facility] Haemophilus influenzae type b vaccine, conjugate unspecified formulation Unknown Completed [facility] Haemophilus influenzae type b vaccine, conjugate unspecified formulation Unknown Completed [facility] Hib-HbOC Unknown Completed [facility] Hib-HbOC Unknown Completed [facility] HIB 4 Dose Schedule Unknown Completed [facility] HPV Unknown Completed [facility] Meningococcal Polysaccharide (groups A, C, Y and W-135) conjugate vaccine (MCV4P) Unknown Completed [facility] MMR Unknown Completed [facility] Influenza Virus Vaccine Unknown Completed [facility] MMR Unknown Completed [facility] Pneumococcal 7 Conjugate, PCV7 (Prevnar7) Unknown Completed [facility] IPV Unknown Completed [facility] IPV Unknown Completed [facility] IPV Unknown Completed [facility] Poliovirus, Live, Oral, Trivalent Unknown Completed [facility] TDAP Unknown Completed [facility] Varicella (varivax)(chicken pox) Unknown Completed [facility] Varicella (varivax)(chicken pox) Unknown Completed [facility] Influenza Virus Vaccine Quad IM, Preserv and ABX Free 6 MO-64 YRS (FLUCELVAX) Unknown Completed [facility] TDAP Unknown Completed [facility] Influenza Virus Vaccine Unknown Completed [facility] TDAP Unknown Completed [facility] Influenza Virus Vaccine Quad IM 3+ YRS Unknown [facility] Influenza Virus Vaccine Quad IM 3+ YRS Unknown Completed [facility] SARS-COV-2 COVID-19 VACCINE - (MODERNA) Unknown Completed [facility] DTaP, Unspecified Formulation Unknown Completed [facility] DTaP, Unspecified Formulation Unknown Completed [facility] DTaP, Unspecified Formulation Unknown Completed [facility] DTaP, Unspecified Formulation Unknown Completed [facility] DTaP, Unspecified Formulation Unknown Completed [facility] Influenza Virus Vaccine Quad .5 mL IM 6+ MO (FLUZONE/FLULAVAL/FLUA AMY) Unknown Completed [facility] Influenza Virus Vaccine Nasal Unknown Completed [facility] HEPATITIS A Unknown Completed [facility] HEPATITIS A Unknown Completed [facility] Hep B, Adol or Pedi Dosage Unknown Completed [facility] Hep B, Adol or Pedi Dosage Unknown Completed [facility] Hep B, Adol or Pedi Dosage Unknown Completed [facility] Haemophilus influenzae type b vaccine, conjugate unspecified formulation Unknown Completed [facility] Haemophilus influenzae type b vaccine, conjugate unspecified formulation Unknown Completed [facility] Haemophilus influenzae type b vaccine, conjugate unspecified formulation Unknown Completed [facility] Hib-HbOC Unknown Completed [facility] Hib-HbOC Unknown Completed [facility] HIB 4 Dose Schedule Unknown Completed [facility] HPV Unknown Completed [facility] Meningococcal Polysaccharide (groups A, C, Y and W-135) conjugate vaccine (MCV4P) Unknown Completed [facility] MMR Unknown Completed [facility] MMR Unknown Completed [facility] Pneumococcal 7 Conjugate, PCV7 (Prevnar7) Unknown Completed [facility] IPV Unknown Completed [facility] IPV Unknown Completed [facility] IPV Unknown Completed [facility] Poliovirus, Live, Oral, Trivalent Unknown Completed [facility] TDAP Unknown Completed [facility] Varicella (varivax)(chicken pox) Unknown [facility] Varicella (varivax)(chicken pox) Unknown Completed [facility] Influenza Virus Vaccine Quad IM, Preserv and ABX Free 6 MO-64 YRS (FLUCELVAX) Unknown [facility]ine [facility] Completed [facility] TDAP Unknown Completed [facility] Influenza Virus Vaccine Quad IM 3+ YRS Unknown Completed [facility] SARS-COV-2 COVID-19 VACCINE - (MODERNA) Unknown Completed [facility] DTaP, Unspecified Formulation Unknown Completed [facility] DTaP, Unspecified Formulation Unknown Completed [facility] DTaP, Unspecified Formulation Unknown Completed [facility] DTaP, Unspecified Formulation Unknown Completed [facility] DTaP, Unspecified Formulation Unknown Completed [facility] Influenza Virus Vaccine Quad .5 mL IM 6+ MO (FLUZONE/FLULAVAL/FLUA AMY) Unknown Completed [facility] Influenza Virus Vaccine Nasal Unknown Completed [facility] HEPATITIS A Unknown Completed [facility] HEPATITIS A Unknown Completed [facility] Hep B, Adol or Pedi Dosage Unknown Completed [facility] Hep B, Adol or Pedi Dosage Unknown Completed [facility] Hep B, Adol or Pedi Dosage Unknown Completed [facility] Haemophilus influenzae type b vaccine, conjugate unspecified formulation Unknown Completed [facility] Haemophilus influenzae type b vaccine, conjugate unspecified formulation Unknown Completed [facility] Haemophilus influenzae type b vaccine, conjugate unspecified formulation Unknown Completed [facility] Hib-HbOC Unknown Completed [facility] Hib-HbOC Unknown Completed [facility] HIB 4 Dose Schedule Unknown Completed [facility] HPV Unknown Completed [facility] Meningococcal Polysaccharide (groups A, C, Y and W-135) conjugate vaccine (MCV4P) Unknown Completed [facility] MMR Unknown Completed [facility] MMR Unknown Completed [facility] Pneumococcal 7 Conjugate, PCV7 (Prevnar7) Unknown Completed [facility] IPV Unknown Completed [facility] IPV Unknown Completed [facility] IPV Unknown Completed [facility] Poliovirus, Live, Oral, Trivalent Unknown Completed [facility] TDAP Unknown Completed [facility] Varicella (varivax)(chicken pox) Unknown Completed [facility] Varicella (varivax)(chicken pox) Unknown Completed [facility] Influenza Virus Vaccine Quad IM, Preserv and ABX Free 6 MO-64 YRS (FLUCELVAX) Unknown Completed [facility] Influenza Virus Vaccine Unknown Completed [facility] TDAP Unknown Completed [facility] Influenza Virus Vaccine Quad IM 3+ YRS Unknown Completed [facility] SARS-COV-2 COVID-19 VACCINE - (MODERNA) Unknown Completed [facility] DTaP, Unspecified Formulation Unknown Completed [facility] DTaP, Unspecified Formulation Unknown Completed [facility] DTaP, Unspecified Formulation Unknown Completed [facility] DTaP, Unspecified Formulation Unknown Completed [facility] DTaP, Unspecified Formulation Unknown Completed [facility] Influenza Virus Vaccine Quad .5 mL IM 6+ MO (FLUZONE/FLULAVAL/FLUA AMY) Unknown Completed [facility] Influenza Virus Vaccine Nasal Unknown Completed [facility] HEPATITIS A Unknown Completed [facility] HEPATITIS A Unknown Completed [facility] Hep B, Adol or Pedi Dosage Unknown Completed [facility] Hep B, Adol or Pedi Dosage Unknown Completed [facility] Hep B, Adol or Pedi Dosage Unknown Completed [facility] Haemophilus influenzae type b vaccine, conjugate unspecified formulation Unknown Completed [facility] Haemophilus influenzae type b vaccine, conjugate unspecified formulation Unknown Completed [facility] Haemophilus influenzae type b vaccine, conjugate unspecified formulation Unknown Completed [facility] Hib-HbOC Unknown Completed [facility] Hib-HbOC Unknown Completed [facility] HIB 4 Dose Schedule Unknown Completed [facility] HPV Unknown Completed [facility] Meningococcal Polysaccharide (groups A, C, Y and W-135) conjugate vaccine (MCV4P) Unknown Completed [facility] MMR Unknown Completed [facility] MMR Unknown Completed [facility] Pneumococcal 7 Conjugate, PCV7 (Prevnar7) Unknown Completed [facility] IPV Unknown Completed [facility] IPV Unknown Completed [facility] IPV Unknown Completed [facility] Poliovirus, Live, Oral, Trivalent Unknown Completed [facility] TDAP Unknown Completed [facility] Varicella (varivax)(chicken pox) Unknown [facility] Varicella (varivax)(chicken pox) Unknown Completed [facility] Influenza Virus Vaccine Quad IM, Preserv and ABX Free 6 MO-64 YRS (FLUCELVAX) Unknown Completed [facility] Influenza Virus Vaccine Unknown Completed [facility] TDAP Unknown Completed [facility] Influenza Virus Vaccine Quad IM 3+ YRS Unknown Completed [facility] SARS-COV-2 COVID-19 VACCINE - (MODERNA) Unknown Completed [facility] DTaP, Unspecified Formulation Unknown Completed [facility] DTaP, Unspecified Formulation Unknown Completed [facility] DTaP, Unspecified Formulation Unknown Completed [facility] DTaP, Unspecified Formulation Unknown Completed [facility] DTaP, Unspecified Formulation Unknown Completed [facility] Influenza Virus Vaccine Quad .5 mL IM 6+ MO (FLUZONE/FLULAVAL/FLUA AMY) Unknown Completed [facility] Influenza Virus Vaccine Nasal Unknown Completed [facility] HEPATITIS A Unknown Completed [facility] HEPATITIS A Unknown Completed [facility] Hep B, Adol or Pedi Dosage Unknown Completed [facility] Hep B, Adol or Pedi Dosage Unknown Completed [facility] Hep B, Adol or Pedi Dosage Unknown Completed [facility] Haemophilus influenzae type b vaccine, conjugate unspecified formulation Unknown Completed [facility] Haemophilus influenzae type b vaccine, conjugate unspecified formulation Unknown Completed [facility] Haemophilus influenzae type b vaccine, conjugate unspecified formulation Unknown Completed [facility] Hib-HbOC Unknown Completed [facility] Hib-HbOC Unknown Completed [facility] HIB 4 Dose Schedule Unknown Completed [facility] HPV Unknown Completed [facility] Meningococcal Polysaccharide (groups A, C, Y and W-135) conjugate vaccine (MCV4P) Unknown Completed [facility] MMR Unknown Completed [facility] MMR Unknown Completed [facility] Pneumococcal 7 Conjugate, PCV7 (Prevnar7) Unknown Completed [facility] IPV Unknown Completed [facility] IPV Unknown Completed [facility] IPV Unknown Completed [facility] Poliovirus, Live, Oral, Trivalent Unknown Completed [facility] TDAP Unknown Completed [facility] Varicella (varivax)(chicken pox) Unknown Completed [facility] Varicella (varivax)(chicken pox) Unknown Completed [facility] Influenza Virus Vaccine Quad IM, Preserv and ABX Free 6 MO-64 YRS (FLUCELVAX) Unknown Completed [facility] Influenza Virus Vaccine Unknown Completed [facility] TDAP Unknown Completed [facility] Influenza Virus Vaccine Quad IM 3+ YRS Unknown Completed [facility] SARS-COV-2 COVID-19 VACCINE - (MODERNA) Unknown Completed [facility] DTaP, Unspecified Formulation Unknown Completed [facility] DTaP, Unspecified Formulation Unknown Completed [facility] DTaP, Unspecified Formulation Unknown Completed [facility] DTaP, Unspecified Formulation Unknown Completed [facility] DTaP, Unspecified Formulation Unknown Completed [facility] Influenza Virus Vaccine Quad .5 mL IM 6+ MO (FLUZONE/FLULAVAL/FLUA AMY) Unknown Completed [facility] Influenza Virus Vaccine Nasal Unknown Completed [facility] HEPATITIS A Unknown Completed [facility] HEPATITIS A Unknown Completed [facility] Hep B, Adol or Pedi Dosage Unknown Completed [facility] Hep B, Adol or Pedi Dosage Unknown Completed [facility] Hep B, Adol or Pedi Dosage Unknown Completed [facility] Haemophilus influenzae type b vaccine, conjugate unspecified formulation Unknown Completed [facility] Haemophilus influenzae type b vaccine, conjugate unspecified formulation Unknown Completed [facility] Haemophilus influenzae type b vaccine, conjugate unspecified formulation Unknown Completed [facility] Hib-HbOC Unknown Completed [facility] Hib-HbOC Unknown Completed [facility] HIB 4 Dose Schedule Unknown Completed [facility] HPV Unknown Completed [facility] Meningococcal Polysaccharide (groups A, C, Y and W-135) conjugate vaccine (MCV4P) Unknown Completed [facility] MMR Unknown Completed [facility] MMR Unknown Completed [facility] Pneumococcal 7 Conjugate, PCV7 (Prevnar7) Unknown Completed [facility] IPV Unknown Completed [facility] IPV Unknown Completed [facility] IPV Unknown Completed [facility] Poliovirus, Live, Oral, Trivalent Unknown Completed [facility] TDAP Unknown Completed [facility] Varicella (varivax)(chicken pox) Unknown Completed [facility] Varicella (varivax)(chicken pox) Unknown Completed [facility] Influenza Virus Vaccine Quad IM, Preserv and ABX Free 6 MO-64 YRS (FLUCELVAX) Unknown Completed [facility] Influenza Virus Vaccine Unknown Completed [facility] TDAP Unknown Completed [facility] Influenza Virus Vaccine Quad IM 3+ YRS Unknown Completed [facility] SARS-COV-2 COVID-19 VACCINE - (MODERNA) Unknown Completed [facility] DTaP, Unspecified Formulation Unknown Completed [facility] DTaP, Unspecified Formulation Unknown Completed [facility] DTaP, Unspecified Formulation Unknown Completed [facility] DTaP, Unspecified Formulation Unknown Completed [facility] DTaP, Unspecified Formulation Unknown Completed [facility] Influenza Virus Vaccine Quad .5 mL IM 6+ MO (FLUZONE/FLULAVAL/FLUA AMY) Unknown Completed [facility] Influenza Virus Vaccine Nasal Unknown Completed [facility] HEPATITIS A Unknown Completed [facility] HEPATITIS A Unknown Completed [facility] Hep B, Adol or Pedi Dosage Unknown Completed [facility] Hep B, Adol or Pedi Dosage Unknown Completed [facility] Hep B, Adol or Pedi Dosage Unknown Completed [facility] Haemophilus influenzae type b vaccine, conjugate unspecified formulation Unknown Completed [facility] Haemophilus influenzae type b vaccine, conjugate unspecified formulation Unknown Completed [facility] Haemophilus influenzae type b vaccine, conjugate unspecified formulation Unknown Completed [facility] Hib-HbOC Unknown Completed [facility] Hib-HbOC Unknown Completed [facility] HIB 4 Dose Schedule Unknown Completed [facility] HPV Unknown Completed [facility] Meningococcal Polysaccharide (groups A, C, Y and W-135) conjugate vaccine (MCV4P) Unknown Completed [facility] MMR Unknown Completed [facility] MMR Unknown Completed [facility] Pneumococcal 7 Conjugate, PCV7 (Prevnar7) Unknown Completed [facility] IPV Unknown Completed [facility] IPV Unknown Completed [facility] IPV Unknown Completed [facility] Poliovirus, Live, Oral, Trivalent Unknown Completed [facility] TDAP Unknown Completed [facility] Varicella (varivax)(chicken pox) Unknown Completed [facility] Varicella (varivax)(chicken pox) Unknown Completed [facility] Influenza Virus Vaccine Quad IM, Preserv and ABX Free 6 MO-64 YRS (FLUCELVAX) Unknown Completed [facility] Influenza Virus Vaccine Unknown Completed [facility] TDAP Unknown Completed [facility] Influenza Virus Vaccine Quad IM 3+ YRS Unknown Completed [facility] SARS-COV-2 COVID-19 VACCINE - (MODERNA) Unknown Completed [facility] DTaP, Unspecified Formulation Unknown Completed [facility] DTaP, Unspecified Formulation Unknown Completed [facility] DTaP, Unspecified Formulation Unknown Completed [facility] DTaP, Unspecified Formulation Unknown Completed [facility] DTaP, Unspecified Formulation Unknown Completed [facility] Influenza Virus Vaccine Quad .5 mL IM 6+ MO (FLUZONE/FLULAVAL/FLUA AMY) Unknown Completed [facility] Influenza Virus Vaccine Nasal Unknown Completed [facility] HEPATITIS A Unknown Completed [facility] HEPATITIS A Unknown Completed [facility] Hep B, Adol or Pedi Dosage Unknown Completed [facility] Hep B, Adol or Pedi Dosage Unknown Completed [facility] Hep B, Adol or Pedi Dosage Unknown Completed [facility] Haemophilus influenzae type b vaccine, conjugate unspecified formulation Unknown Completed [facility] Haemophilus influenzae type b vaccine, conjugate unspecified formulation Unknown Completed [facility] Haemophilus influenzae type b vaccine, conjugate unspecified formulation Unknown Completed [facility] Hib-HbOC Unknown Completed [facility] Hib-HbOC Unknown Completed [facility] HIB 4 Dose Schedule Unknown Completed [facility] HPV Unknown Completed [facility] Meningococcal Polysaccharide (groups A, C, Y and W-135) conjugate vaccine (MCV4P) Unknown Completed [facility] MMR Unknown Completed [facility] MMR Unknown Completed [facility] Pneumococcal 7 Conjugate, PCV7 (Prevnar7) Unknown Completed [facility] IPV Unknown Completed [facility] IPV Unknown Completed [facility] IPV Unknown Completed [facility] Poliovirus, Live, Oral, Trivalent Unknown Completed [facility] TDAP Unknown Completed [facility] Varicella (varivax)(chicken pox) Unknown Completed [facility] Varicella (varivax)(chicken pox) Unknown Completed [facility] Influenza Virus Vaccine Quad IM, Preserv and ABX Free 6 MO-64 YRS (FLUCELVAX) Unknown Completed [facility] Influenza Virus Vaccine Unknown Completed [facility] TDAP Unknown Completed [facility] Influenza Virus Vaccine Quad IM 3+ YRS Unknown Completed [facility] SARS-COV-2 COVID-19 VACCINE - (MODERNA) Unknown Completed [facility] DTaP, Unspecified Formulation Unknown Completed [facility] DTaP, Unspecified Formulation Unknown Completed [facility] DTaP, Unspecified Formulation Unknown Completed [facility] DTaP, Unspecified Formulation Unknown Completed [facility] DTaP, Unspecified Formulation Unknown Completed [facility] Influenza Virus Vaccine Quad .5 mL IM 6+ MO (FLUZONE/FLULAVAL/FLUA AMY) Unknown Completed [facility] Influenza Virus Vaccine Nasal Unknown Completed [facility] HEPATITIS A Unknown Completed [facility] HEPATITIS A Unknown Completed [facility] Hep B, Adol or Pedi Dosage Unknown Completed [facility] Hep B, Adol or Pedi Dosage Unknown Completed [facility] Hep B, Adol or Pedi Dosage Unknown Completed [facility] Haemophilus influenzae type b vaccine, conjugate unspecified formulation Unknown Completed [facility] Haemophilus influenzae type b vaccine, conjugate unspecified formulation Unknown Completed [facility] Haemophilus influenzae type b vaccine, conjugate unspecified formulation Unknown Completed [facility] Hib-HbOC Unknown Completed [facility] Hib-HbOC Unknown Completed [facility] HIB 4 Dose Schedule Unknown Completed [facility] HPV Unknown Completed [facility] Meningococcal Polysaccharide (groups A, C, Y and W-135) conjugate vaccine (MCV4P) Unknown Completed [facility] MMR Unknown Completed [facility] MMR Unknown Completed [facility] Pneumococcal 7 Conjugate, PCV7 (Prevnar7) Unknown Completed [facility] IPV Unknown Completed [facility] IPV Unknown Completed [facility] IPV Unknown Completed [facility] Poliovirus, Live, Oral, Trivalent Unknown Completed [facility] TDAP Unknown Completed [facility] Varicella (varivax)(chicken pox) Unknown Completed [facility] Varicella (varivax)(chicken pox) Unknown Completed [facility] Influenza Virus Vaccine Quad IM, Preserv and ABX Free 6 MO-64 YRS (FLUCELVAX) Unknown Completed [facility] Influenza Virus Vaccine Unknown Completed [facility] TDAP Unknown Completed [facility] Influenza Virus Vaccine Quad IM 3+ YRS Unknown Completed [facility] SARS-COV-2 COVID-19 VACCINE - (MODERNA) Unknown Completed [facility] DTaP, Unspecified Formulation Unknown Completed [facility] DTaP, Unspecified Formulation Unknown Completed [facility] DTaP, Unspecified Formulation Unknown Completed [facility] DTaP, Unspecified Formulation Unknown Completed [facility] DTaP, Unspecified Formulation Unknown Completed [facility] Influenza Virus Vaccine Quad .5 mL IM 6+ MO (FLUZONE/FLULAVAL/FLUA AMY) Unknown Completed [facility] Influenza Virus Vaccine Nasal Unknown Completed [facility] HEPATITIS A Unknown Completed [facility] HEPATITIS A Unknown Completed [facility] Hep B, Adol or Pedi Dosage Unknown Completed [facility] Hep B, Adol or Pedi Dosage Unknown Completed [facility] Hep B, Adol or Pedi Dosage Unknown Completed [facility] Haemophilus influenzae type b vaccine, conjugate unspecified formulation Unknown Completed [facility] Haemophilus influenzae type b vaccine, conjugate unspecified formulation Unknown Completed [facility] Haemophilus influenzae type b vaccine, conjugate unspecified formulation Unknown Completed [facility] Hib-HbOC Unknown Completed [facility] Hib-HbOC Unknown Completed [facility] HIB 4 Dose Schedule Unknown Completed [facility] HPV Unknown Completed [facility] Meningococcal Polysaccharide (groups A, C, Y and W-135) conjugate vaccine (MCV4P) Unknown Completed [facility] MMR Unknown Completed [facility] MMR Unknown Completed [facility] Pneumococcal 7 Conjugate, PCV7 (Prevnar7) Unknown Completed [facility] IPV Unknown Completed [facility] IPV Unknown Completed [facility] IPV Unknown Completed [facility] Poliovirus, Live, Oral, Trivalent Unknown Completed [facility] TDAP Unknown Completed [facility] Varicella (varivax)(chicken pox) Unknown Completed [facility] Varicella (varivax)(chicken pox) Unknown Completed [facility] Influenza Virus Vaccine Quad IM, Preserv and ABX Free 6 MO-64 YRS (FLUCELVAX) Unknown Completed [facility] Influenza Virus Vaccine Unknown Completed [facility] TDAP Unknown Completed [facility] Influenza Virus Vaccine Quad IM 3+ YRS Unknown Completed [facility] SARS-COV-2 COVID-19 VACCINE - (MODERNA) Unknown Completed [facility] DTaP, Unspecified Formulation Unknown Completed [facility] DTaP, Unspecified Formulation Unknown Completed [facility] DTaP, Unspecified Formulation Unknown Completed [facility] DTaP, Unspecified Formulation Unknown Completed [facility] DTaP, Unspecified Formulation Unknown Completed [facility] Influenza Virus Vaccine Quad .5 mL IM 6+ MO (FLUZONE/FLULAVAL/FLUA AMY) Unknown Completed [facility] Influenza Virus Vaccine Nasal Unknown Completed [facility] HEPATITIS A Unknown Completed [facility] HEPATITIS A Unknown Completed [facility] Hep B, Adol or Pedi Dosage Unknown Completed [facility] Hep B, Adol or Pedi Dosage Unknown Completed [facility] Hep B, Adol or Pedi Dosage Unknown Completed [facility] Haemophilus influenzae type b vaccine, conjugate unspecified formulation Unknown Completed [facility] Haemophilus influenzae type b vaccine, conjugate unspecified formulation Unknown Completed [facility] Haemophilus influenzae type b vaccine, conjugate unspecified formulation Unknown Completed [facility] Hib-HbOC Unknown Completed [facility] Hib-HbOC Unknown Completed [facility] HIB 4 Dose Schedule Unknown Completed [facility] HPV Unknown Completed [facility] Meningococcal Polysaccharide (groups A, C, Y and W-135) conjugate vaccine (MCV4P) Unknown Completed [facility] MMR Unknown Completed [facility] MMR Unknown Completed [facility] Pneumococcal 7 Conjugate, PCV7 (Prevnar7) Unknown Completed [facility] IPV Unknown Completed [facility] IPV Unknown Completed [facility] IPV Unknown Completed [facility] Poliovirus, Live, Oral, Trivalent Unknown Completed [facility] TDAP Unknown Completed [facility] Varicella (varivax)(chicken pox) Unknown Completed [facility] Varicella (varivax)(chicken pox) Unknown Completed [facility] Influenza Virus Vaccine Quad IM, Preserv and ABX Free 6 MO-64 YRS (FLUCELVAX) Unknown [facility] TDAP Unknown Completed [facility] Influenza Virus Vaccine Quad IM 3+ YRS Unknown Completed [facility] SARS-COV-2 COVID-19 VACCINE - (MODERNA) Unknown Completed [facility] DTaP, Unspecified Formulation Unknown Completed [facility] DTaP, Unspecified Formulation Unknown Completed [facility] DTaP, Unspecified Formulation Unknown Completed [facility] DTaP, Unspecified Formulation Unknown Completed [facility] DTaP, Unspecified Formulation Unknown Completed [facility] Influenza Virus Vaccine Quad .5 mL IM 6+ MO (FLUZONE/FLULAVAL/FLUA AMY) Unknown Completed [facility] Influenza Virus Vaccine Nasal Unknown Completed [facility] HEPATITIS A Unknown Completed [facility] HEPATITIS A Unknown Completed [facility] Hep B, Adol or Pedi Dosage Unknown Completed [facility] Hep B, Adol or Pedi Dosage Unknown Completed [facility] Hep B, Adol or Pedi Dosage Unknown Completed [facility] Haemophilus influenzae type b vaccine, conjugate unspecified formulation Unknown Completed [facility] Haemophilus influenzae type b vaccine, conjugate unspecified formulation Unknown Completed [facility] Haemophilus influenzae type b vaccine, conjugate unspecified formulation Unknown Completed [facility] Hib-HbOC Unknown Completed [facility] Hib-HbOC Unknown Completed [facility] HIB 4 Dose Schedule Unknown Completed [facility] HPV Unknown Completed [facility] Meningococcal Polysaccharide (groups A, C, Y and W-135) conjugate vaccine (MCV4P) Unknown Completed [facility] MMR Unknown Completed [facility] MMR Unknown Completed [facility] Pneumococcal 7 Conjugate, PCV7 (Prevnar7) Unknown Completed [facility] IPV Unknown Completed [facility] IPV Unknown Completed [facility] IPV Unknown Completed [facility] Poliovirus, Live, Oral, Trivalent Unknown Completed [facility] TDAP Unknown Completed [facility] Varicella (varivax)(chicken pox) Unknown Completed [facility] Varicella (varivax)(chicken pox) Unknown Completed [facility] Influenza Virus Vaccine Quad IM, Preserv and ABX Free 6 MO-64 YRS (FLUCELVAX) Unknown [facility] Vaccine Unknown Completed [facility] TDAP Unknown Completed [facility] Influenza Virus Vaccine Quad IM 3+ YRS Unknown Completed [facility] SARS-COV-2 COVID-19 VACCINE - (MODERNA) Unknown Completed [facility] DTaP, Unspecified Formulation Unknown Completed [facility] DTaP, Unspecified Formulation Unknown Completed [facility] DTaP, Unspecified Formulation Unknown Completed [facility] DTaP, Unspecified Formulation Unknown Completed [facility] DTaP, Unspecified Formulation Unknown Completed [facility] Influenza Virus Vaccine Quad .5 mL IM 6+ MO (FLUZONE/FLULAVAL/FLUA AMY) Unknown Completed [facility] Influenza Virus Vaccine Nasal Unknown Completed [facility] HEPATITIS A Unknown Completed [facility] HEPATITIS A Unknown Completed [facility] Hep B, Adol or Pedi Dosage Unknown Completed [facility] Hep B, Adol or Pedi Dosage Unknown Completed [facility] Hep B, Adol or Pedi Dosage Unknown Completed [facility] Haemophilus influenzae type b vaccine, conjugate unspecified formulation Unknown Completed [facility] Haemophilus influenzae type b vaccine, conjugate unspecified formulation Unknown Completed [facility] Haemophilus influenzae type b vaccine, conjugate unspecified formulation Unknown Completed [facility] Hib-HbOC Unknown Completed [facility] Hib-HbOC Unknown Completed [facility] HIB 4 Dose Schedule Unknown Completed [facility] HPV Unknown Completed [facility] Meningococcal Polysaccharide (groups A, C, Y and W-135) conjugate vaccine (MCV4P) Unknown Completed [facility] MMR Unknown Completed [facility] MMR Unknown Completed [facility] Pneumococcal 7 Conjugate, PCV7 (Prevnar7) Unknown Completed [facility] IPV Unknown Completed [facility] IPV Unknown Completed [facility] IPV Unknown Completed [facility] Poliovirus, Live, Oral, Trivalent Unknown Completed [facility] TDAP Unknown Completed [facility] Varicella (varivax)(chicken pox) Unknown Completed [facility] Varicella (varivax)(chicken pox) Unknown Completed [facility] Influenza Virus Vaccine Quad IM, Preserv and ABX Free 6 MO-64 YRS (FLUCELVAX) Unknown [facility] Influ[facility] Virus Vaccine Unknown Completed [facility] TDAP Unknown Completed [facility] Influenza Virus Vaccine Quad IM 3+ YRS Unknown Completed [facility] SARS-COV-2 COVID-19 VACCINE - (MODERNA) Unknown Completed [facility] DTaP, Unspecified Formulation Unknown Completed [facility] DTaP, Unspecified Formulation Unknown Completed [facility] DTaP, Unspecified Formulation Unknown Completed [facility] DTaP, Unspecified Formulation Unknown Completed [facility] DTaP, Unspecified Formulation Unknown Completed [facility] Influenza Virus Vaccine Quad .5 mL IM 6+ MO (FLUZONE/FLULAVAL/FLUA AMY) Unknown Completed [facility] Influenza Virus Vaccine Nasal Unknown Completed [facility] HEPATITIS A Unknown Completed [facility] HEPATITIS A Unknown Completed [facility] Hep B, Adol or Pedi Dosage Unknown Completed [facility] Hep B, Adol or Pedi Dosage Unknown Completed [facility] Hep B, Adol or Pedi Dosage Unknown Completed [facility] Haemophilus influenzae type b vaccine, conjugate unspecified formulation Unknown Completed [facility] Haemophilus influenzae type b vaccine, conjugate unspecified formulation Unknown Completed [facility] Haemophilus influenzae type b vaccine, conjugate unspecified formulation Unknown Completed [facility] Hib-HbOC Unknown Completed [facility] Hib-HbOC Unknown Completed [facility] HIB 4 Dose Schedule Unknown Completed [facility] HPV Unknown Completed [facility] Meningococcal Polysaccharide (groups A, C, Y and W-135) conjugate vaccine (MCV4P) Unknown Completed [facility] MMR Unknown Completed [facility] MMR Unknown Completed [facility] Pneumococcal 7 Conjugate, PCV7 (Prevnar7) Unknown Completed [facility] IPV Unknown Completed [facility] IPV Unknown Completed [facility] IPV Unknown Completed [facility] Poliovirus, Live, Oral, Trivalent Unknown Completed [facility] TDAP Unknown Completed [facility] Varicella (varivax)(chicken pox) Unknown [facility] Varicella (varivax)(chicken pox) Unknown Completed [facility] Influenza Virus Vaccine Quad IM, Preserv and ABX Free 6 MO-64 YRS (FLUCELVAX) Unknown [facility] Vaccine Unknown Completed [facility] TDAP Unknown Completed [facility] Influenza Virus Vaccine Quad IM 3+ YRS Unknown Completed [facility] SARS-COV-2 COVID-19 VACCINE - (MODERNA) Unknown Completed [facility] DTaP, Unspecified Formulation Unknown Completed [facility] DTaP, Unspecified Formulation Unknown Completed [facility] DTaP, Unspecified Formulation Unknown Completed [facility] DTaP, Unspecified Formulation Unknown Completed [facility] DTaP, Unspecified Formulation Unknown Completed [facility] Influenza Virus Vaccine Quad .5 mL IM 6+ MO (FLUZONE/FLULAVAL/FLUA AMY) Unknown Completed [facility] Influenza Virus Vaccine Nasal Unknown Completed [facility] HEPATITIS A Unknown Completed [facility] HEPATITIS A Unknown Completed [facility] Hep B, Adol or Pedi Dosage Unknown Completed [facility] Hep B, Adol or Pedi Dosage Unknown Completed [facility] Hep B, Adol or Pedi Dosage Unknown Completed [facility] Haemophilus influenzae type b vaccine, conjugate unspecified formulation Unknown Completed [facility] Haemophilus influenzae type b vaccine, conjugate unspecified formulation Unknown Completed [facility] Haemophilus influenzae type b vaccine, conjugate unspecified formulation Unknown Completed [facility] Hib-HbOC Unknown Completed [facility] Hib-HbOC Unknown Completed [facility] HIB 4 Dose Schedule Unknown Completed [facility] HPV Unknown Completed [facility] Meningococcal Polysaccharide (groups A, C, Y and W-135) conjugate vaccine (MCV4P) Unknown Completed [facility] MMR Unknown Completed [facility] MMR Unknown Completed [facility] Pneumococcal 7 Conjugate, PCV7 (Prevnar7) Unknown Completed [facility] IPV Unknown Completed [facility] IPV Unknown Completed [facility] IPV Unknown Completed [facility] Poliovirus, Live, Oral, Trivalent Unknown Completed [facility] TDAP Unknown Completed [facility] Varicella (varivax)(chicken pox) Unknown Completed [facility] Varicella (varivax)(chicken pox) Unknown Completed [facility] Influenza Virus Vaccine Quad IM, Preserv and ABX Free 6 MO-64 YRS (FLUCELVAX) Unknown [facility] Vaccine Unknown Completed [facility] TDAP Unknown Completed [facility] Influenza Virus Vaccine Quad IM 3+ YRS Unknown Completed [facility] SARS-COV-2 COVID-19 VACCINE - (MODERNA) Unknown Completed [facility] DTaP, Unspecified Formulation Unknown Completed [facility] DTaP, Unspecified Formulation Unknown Completed [facility] DTaP, Unspecified Formulation Unknown Completed [facility] DTaP, Unspecified Formulation Unknown Completed [facility] DTaP, Unspecified Formulation Unknown Completed [facility] Influenza Virus Vaccine Quad .5 mL IM 6+ MO (FLUZONE/FLULAVAL/FLUA AMY) Unknown Completed [facility] Influenza Virus Vaccine Nasal Unknown Completed [facility] Influenza Virus Vaccine Unknown Completed [facility] HEPATITIS A Unknown Completed [facility] HEPATITIS A Unknown Completed [facility] Hep B, Adol or Pedi Dosage Unknown Completed [facility] Hep B, Adol or Pedi Dosage Unknown Completed [facility] Hep B, Adol or Pedi Dosage Unknown Completed [facility] Haemophilus influenzae type b vaccine, conjugate unspecified formulation Unknown Completed [facility] Haemophilus influenzae type b vaccine, conjugate unspecified formulation Unknown Completed [facility] Haemophilus influenzae type b vaccine, conjugate unspecified formulation Unknown Completed [facility] Hib-HbOC Unknown Completed [facility] Hib-HbOC Unknown Completed [facility] TDAP Unknown Completed [facility] HIB 4 Dose Schedule Unknown Completed [facility] HPV Unknown Completed [facility] Meningococcal Polysaccharide (groups A, C, Y and W-135) conjugate vaccine (MCV4P) Unknown Completed [facility] MMR Unknown Completed [facility] MMR Unknown Completed [facility] Pneumococcal 7 Conjugate, PCV7 (Prevnar7) Unknown Completed [facility] IPV Unknown Completed [facility] IPV Unknown Completed [facility] IPV Unknown Completed [facility] Poliovirus, Live, Oral, Trivalent Unknown Completed [facility] Influenza Virus Vaccine Quad IM 3+ YRS Unknown Completed [facility] TDAP Unknown Completed [facility] Varicella (varivax)(chicken pox) Unknown [facility] [facility] Varicella (varivax)(chicken pox) Unknown [facility] Influenza Virus Vaccine Quad IM, Preserv and ABX Free 6 MO-64 YRS (FLUCELVAX) Unknown Completed [facility] SARS-COV-2 COVID-19 VACCINE - (MODERNA) Unknown Completed [facility] Influenza Virus Vaccine Unknown Completed [facility] TDAP Unknown Completed [facility] Influenza Virus Vaccine Quad IM 3+ YRS Unknown Completed [facility] SARS-COV-2 COVID-19 VACCINE - (MODERNA) Unknown Completed [facility] DTaP, Unspecified Formulation Unknown Completed [facility] DTaP, Unspecified Formulation Unknown Completed [facility] DTaP, Unspecified Formulation Unknown Completed [facility] DTaP, Unspecified Formulation Unknown Completed [facility] DTaP, Unspecified Formulation Unknown Completed [facility] DTaP, Unspecified Formulation Unknown Completed [facility] Influenza Virus Vaccine Quad .5 mL IM 6+ MO (FLUZONE/FLULAVAL/FLUA AMY) Unknown Completed [facility] Influenza Virus Vaccine Nasal Unknown Completed [facility] HEPATITIS A Unknown Completed [facility] HEPATITIS A Unknown Completed [facility] Hep B, Adol or Pedi Dosage Unknown Completed [facility] DTaP, Unspecified Formulation Unknown Completed [facility] Hep B, Adol or Pedi Dosage Unknown Completed [facility] Hep B, Adol or Pedi Dosage Unknown Completed [facility] Haemophilus influenzae type b vaccine, conjugate unspecified formulation Unknown Completed [facility] Haemophilus influenzae type b vaccine, conjugate unspecified formulation Unknown Completed [facility] Haemophilus influenzae type b vaccine, conjugate unspecified formulation Unknown Completed [facility] Hib-HbOC Unknown Completed [facility] Hib-HbOC Unknown Completed [facility] HIB 4 Dose Schedule Unknown Completed [facility] HPV Unknown Completed [facility] Meningococcal Polysaccharide (groups A, C, Y and W-135) conjugate vaccine (MCV4P) Unknown Completed [facility] DTaP, Unspecified Formulation Unknown Completed [facility] MMR Unknown Completed [facility] MMR Unknown Completed [facility] Pneumococcal 7 Conjugate, PCV7 (Prevnar7) Unknown Completed [facility] IPV Unknown Completed [facility] IPV Unknown Completed [facility] IPV Unknown Completed [facility] Poliovirus, Live, Oral, Trivalent Unknown Completed [facility] TDAP Unknown Completed [facility] Varicella (varivax)(chicken pox) Unknown Completed [facility] Varicella (varivax)(chicken pox) Unknown Completed [facility] DTaP, Unspecified Formulation Unknown Completed [facility] Influenza Virus Vaccine Quad IM, Preserv and ABX Free 6 MO-64 YRS (FLUCELVAX) Unknown Completed [facility] DTaP, Unspecified Formulation Unknown Completed [facility] Influenza Virus Vaccine Unknown Completed [facility] TDAP Unknown Completed [facility] Influenza Virus Vaccine Quad IM 3+ YRS Unknown Completed [facility] SARS-COV-2 COVID-19 VACCINE - (MODERNA) Unknown Completed [facility] DTaP, Unspecified Formulation Unknown Completed [facility] DTaP, Unspecified Formulation Unknown Completed [facility] DTaP, Unspecified Formulation Unknown Completed [facility] DTaP, Unspecified Formulation Unknown Completed [facility] Influenza Virus Vaccine Quad .5 mL IM 6+ MO (FLUZONE/FLULAVAL/FLUA AMY) Unknown Completed [facility] DTaP, Unspecified Formulation Unknown Completed [facility] Influenza Virus Vaccine Quad .5 mL IM 6+ MO (FLUZONE/FLULAVAL/FLUA AMY) Unknown Completed [facility] Influenza Virus Vaccine Nasal Unknown Completed [facility] HEPATITIS A Unknown Completed [facility] HEPATITIS A Unknown Completed [facility] Hep B, Adol or Pedi Dosage Unknown Completed [facility] Hep B, Adol or Pedi Dosage Unknown Completed [facility] Hep B, Adol or Pedi Dosage Unknown Completed [facility] Haemophilus influenzae type b vaccine, conjugate unspecified formulation Unknown Completed [facility] Haemophilus influenzae type b vaccine, conjugate unspecified formulation Unknown Completed [facility] Influenza Virus Vaccine Nasal Unknown Completed [facility] Haemophilus influenzae type b vaccine, conjugate unspecified formulation Unknown Completed [facility] Hib-HbOC Unknown Completed [facility] Hib-HbOC Unknown Completed [facility] HIB 4 Dose Schedule Unknown Completed [facility] HPV Unknown Completed [facility] Meningococcal Polysaccharide (groups A, C, Y and W-135) conjugate vaccine (MCV4P) Unknown Completed [facility] MMR Unknown Completed [facility] MMR Unknown Completed [facility] Pneumococcal 7 Conjugate, PCV7 (Prevnar7) Unknown Completed [facility] IPV Unknown Completed [facility] HEPATITIS A Unknown Completed [facility] IPV Unknown Completed [facility] IPV Unknown Completed [facility] Poliovirus, Live, Oral, Trivalent Unknown Completed [facility] TDAP Unknown Completed [facility] Varicella (varivax)(chicken pox) Unknown Completed [facility] Varicella (varivax)(chicken pox) Unknown Completed [facility] Influenza Virus Vaccine Quad IM, Preserv and ABX Free 6 MO-64 YRS (FLUCELVAX) Unknown Completed [facility] HEPATITIS A Unknown Completed [facility] Influenza Virus Vaccine Unknown Completed [facility] TDAP Unknown Completed [facility] Hep B, Adol or Pedi Dosage Unknown Completed [facility] Influenza Virus Vaccine Quad IM 3+ YRS Unknown Completed [facility] SARS-COV-2 COVID-19 VACCINE - (MODERNA) Unknown Completed [facility] DTaP, Unspecified Formulation Unknown Completed [facility] DTaP, Unspecified Formulation Unknown Completed [facility] DTaP, Unspecified Formulation Unknown Completed [facility] DTaP, Unspecified Formulation Unknown Completed [facility] DTaP, Unspecified Formulation Unknown Completed [facility] Influenza Virus Vaccine Quad .5 mL IM 6+ MO (FLUZONE/FLULAVAL/FLUA AMY) Unknown Completed [facility] Influenza Virus Vaccine Nasal Unknown Completed [facility] HEPATITIS A Unknown Completed [facility] Hep B, Adol or Pedi Dosage Unknown Completed [facility] HEPATITIS A Unknown Completed [facility] Hep B, Adol or Pedi Dosage Unknown Completed [facility] Hep B, Adol or Pedi Dosage Unknown Completed [facility] Hep B, Adol or Pedi Dosage Unknown Completed [facility] Haemophilus influenzae type b vaccine, conjugate unspecified formulation Unknown Completed [facility] Haemophilus influenzae type b vaccine, conjugate unspecified formulation Unknown Completed [facility] Haemophilus influenzae type b vaccine, conjugate unspecified formulation Unknown Completed [facility] Hib-HbOC Unknown Completed [facility] Hib-HbOC Unknown Completed [facility] HIB 4 Dose Schedule Unknown Completed [facility] Hep B, Adol or Pedi Dosage Unknown Completed [facility] HPV Unknown Completed [facility] Meningococcal Polysaccharide (groups A, C, Y and W-135) conjugate vaccine (MCV4P) Unknown Completed [facility] MMR Unknown Completed [facility] MMR Unknown Completed [facility] Pneumococcal 7 Conjugate, PCV7 (Prevnar7) Unknown Completed [facility] IPV Unknown Completed [facility] IPV Unknown Completed [facility] IPV Unknown Completed [facility] Vital Signs Vital Name Observation Time Observation Value Comments S ource Systolic blood pressure 2023-12-19 02:09:00 122 mm[Hg] [facility] Diastolic blood pressure 2023-12-19 02:09:00 85 mm[Hg] [facility] Heart rate 2023-12-19 02:09:00 70 /min [facility] Body temperature 2023-12-19 02:09:00 36.94 Opal [facility] Respiratory rate 2023-12-19 02:09:00 18 /min [facility] Oxygen saturation in Arterial blood by Pulse oximetry 2023-12-19 02:09:00 97 /min [facility] Body height 2023-12-19 00:46:00 152.4 cm [facility] Body weight 2023-12-19 00:46:00 79.833 kg [facility] BMI 2023-12-19 00:46:00 34.37 kg/m2 [facility] Systolic blood pressure 2023-12-12 15:08:00 138 mm[Hg] [facility] Diastolic blood pressure 2023-12-12 15:08:00 88 mm[Hg] [facility] Heart rate 2023-12-12 15:08:00 72 /min [facility] Body temperature 2023-12-12 15:08:00 36.67 Opal [facility] Respiratory rate 2023-12-12 15:08:00 16 /min [facility] Body weight 2023-12-12 15:08:00 80.06 kg [facility] BMI 2023-12-12 15:08:00 34.47 kg/m2 [facility] Systolic blood pressure 2023-12-05 14:00:00 128 mm[Hg] [facility] Diastolic blood pressure 2023-12-05 14:00:00 84 mm[Hg] [facility] Heart rate 2023-12-05 14:00:00 65 /min [facility] Body temperature 2023-12-05 14:00:00 36.61 Opal [facility] Respiratory rate 2023-12-05 14:00:00 17 /min [facility] Body height 2023-12-05 14:00:00 152.4 cm [facility] Body weight 2023-12-05 14:00:00 79.969 kg [facility] BMI 2023-12-05 14:00:00 34.43 kg/m2 [facility] Oxygen saturation in Arterial blood by Pulse oximetry 2023-12-05 14:00:00 97 /min [facility] Systolic blood pressure 2023-10-24 23:22:00 126 mm[Hg] [facility] Diastolic blood pressure 2023-10-24 23:22:00 96 mm[Hg] [facility] Heart rate 2023-10-24 23:22:00 89 /min [facility] Body temperature 2023-10-24 23:22:00 37 Opal [facility] Respiratory rate 2023-10-24 23:22:00 14 /min [facility] Body height 2023-10-24 23:22:00 162.6 cm [facility] Body weight 2023-10-24 23:22:00 82.827 kg [facility] BMI 2023-10-24 23:22:00 31.34 kg/m2 [facility] Oxygen saturation in Arterial blood by Pulse oximetry 2023-10-24 23:22:00 97 /min [facility] Systolic blood pressure 2023-07-21 01:00:00 136 mm[Hg] [facility] Diastolic blood pressure 2023-07-21 01:00:00 99 mm[Hg] [facility] Heart rate 2023-07-21 01:00:00 90 /min [facility] Body temperature 2023-07-21 01:00:00 37.17 Opal [facility] Respiratory rate 2023-07-21 01:00:00 15 /min [facility] Body height 2023-07-21 01:00:00 152.4 cm [facility] Body weight 2023-07-21 01:00:00 81.421 kg [facility] BMI 2023-07-21 01:00:00 35.06 kg/m2 [facility] Oxygen saturation in Arterial blood by Pulse oximetry 2023-07-21 01:00:00 100 /min [facility] Systolic blood pressure 2023-05-14 19:44:00 125 mm[Hg] [facility] Diastolic blood pressure 2023-05-14 19:44:00 87 mm[Hg] [facility] Heart rate 2023-05-14 19:43:00 80 /min [facility] Body temperature 2023-05-14 19:43:00 36.72 Opal [facility] Respiratory rate 2023-05-14 19:43:00 17 /min [facility] Body height 2023-05-14 19:43:00 160 cm [facility] Body weight 2023-05-14 19:43:00 81.285 kg [facility] BMI 2023-05-14 19:43:00 31.74 [facility] in Arterial blood by Pulse oximetry 2023-05-14 19:43:00 99 /min [facility] Systolic blood pressure 2023-04-22 15:19:00 137 mm[Hg] [facility] Diastolic blood pressure 2023-04-22 15:19:00 87 mm[Hg] [facility] Heart rate 2023-04-22 15:19:00 84 /min [facility] Body temperature 2023-04-22 15:19:00 36.78 Opal [facility] Respiratory rate 2023-04-22 15:19:00 16 /min [facility] Body weight 2023-04-22 15:19:00 80.513 kg [facility] BMI 2023-04-22 15:19:00 34.67 kg/m2 [facility] Oxygen saturation in Arterial blood by Pulse oximetry 2023-04-22 15:19:00 98 /min [facility] Systolic blood pressure 2023-03-11 15:03:00 135 mm[Hg] [facility] Diastolic blood pressure 2023-03-11 15:03:00 81 mm[Hg] [facility] Heart rate 2023-03-11 15:03:00 83 /min [facility] Oxygen saturation in Arterial blood by Pulse oximetry 2023-03-11 15:03:00 97 /min [facility] Body temperature 2023-03-11 15:02:00 36.56 Opal [facility] Respiratory rate 2023-03-11 15:02:00 16 /min [facility] Body height 2023-03-11 15:02:00 152.4 cm [facility] 2023-03-11 15:02:00 81.194 [facility] 2023-03-11 15:02:00 34.96 kg/m2 [facility] Systolic blood pressure 2023-02-20 05:00:00 128 mm[Hg] [facility] Diastolic blood pressure 2023-02-20 05:00:00 91 mm[Hg] [facility] Heart rate 2023-02-20 05:00:00 65 /min [facility] Respiratory rate 2023-02-20 05:00:00 15 /min [facility] Oxygen saturation in Arterial blood by Pulse oximetry 2023-02-20 05:00:00 97 /min [facility] Body temperature 2023-02-20 01:50:00 37.5 Opal [facility] Body height 2023-02-20 01:50:00 152.4 cm [facility] Body weight 2023-02-20 01:50:00 80.74 kg [facility] BMI 2023-02-20 01:50:00 34.76 kg/m2 [facility] Systolic blood pressure 2022-11-10 09:01:00 120 mm[Hg] [facility] Diastolic blood pressure 2022-11-10 09:01:00 79 mm[Hg] [facility] Heart rate 2022-11-10 09:01:00 68 /min [facility] Respiratory rate 2022-11-10 09:01:00 22 /min [facility] Oxygen saturation in Arterial blood by Pulse oximetry 2022-11-10 09:01:00 98 /min [facility] Body temperature 2022-11-10 06:37:00 37.11 Opal [facility] Body height 2022-11-10 06:37:00 152.4 cm [facility] Body weight 2022-11-10 06:37:00 80.74 kg [facility] BMI 2022-11-10 06:37:00 34.76 kg/m2 [facility] Systolic blood pressure 2022-05-07 21:59:00 115 mm[Hg] [facility] Diastolic blood pressure 2022-05-07 21:59:00 73 mm[Hg] [facility] Heart rate 2022-05-07 21:59:00 60 /min [facility] Body temperature 2022-05-07 21:59:00 36.72 Opal [facility] Body height 2022-05-07 21:59:00 152.4 cm [facility] Body weight 2022-05-07 21:59:00 84.006 kg [facility] BMI 2022-05-07 21:59:00 36.17 kg/m2 [facility] Systolic blood pressure 2022-04-17 13:36:00 119 mm[Hg] [facility] Diastolic blood pressure 2022-04-17 13:36:00 74 mm[Hg] [facility] Heart rate 2022-04-17 13:36:00 90 /min [facility] Body temperature 2022-04-17 13:36:00 36.72 Opal [facility] Respiratory rate 2022-04-17 13:36:00 16 /min [facility] Oxygen saturation in Arterial blood by Pulse oximetry 2022-04-17 13:36:00 99 /min [facility] Body height 2022-04-17 05:12:00 152.4 cm [facility] Body weight 2022-04-17 05:12:00 83.507 kg [facility] BMI 2022-04-17 05:12:00 35.95 kg/m2 [facility] Procedures Procedure Date / Time Performed Performing Clinician Source TOTAL BETA HCG ASSAY 2023-12-19 01:01:00 Nathan Cullen [facility] COMP. METABOLIC PANEL ([id number]) 2023-12-05 15:18:00 John Paul Welch [facility] CBC WITH DIFF 2023-12-05 15:18:00 John Paul Welch [facility] GLYCOSYLATED HEMOGLOBIN (A1C) 2023-12-05 15:18:00 John Paul Welch [facility] HEPATITIS B SURFACE ANTIGEN 2023-12-05 15:18:00 John Paul Welch [facility] HB ABO GROUPING 2023-12-05 15:18:00 Porfirio Welch [facility] PAP SMEAR-LIQUID BASED-CP 2023-12-05 15:18:00 John Paul Welch [facility] RUBELLA SCREEN IGG 2023-12-05 15:18:00 Fidel Welch [facility] VZV ANTIBODY SCREEN 2023-12-05 15:18:00 Daisy Welch [facility] GC & CHLAMYDIA AMPLIFIED ASSAY 2023-12-05 15:18:00 John Paul Welch [facility] LAB ONLY PAP SMEAR-LIQUID BASED 2023-12-05 15:18:00 John Paul Welch [facility] HIV 1/2 AG-AB WITH REFLEX 2023-12-05 15:18:00 John Paul Welch [facility] TRICHOMONAS AMPLIFIED ASSAY 2023-12-05 15:18:00 John Paul Welch [facility] SYPHILIS IGG/IGM 2023-12-05 15:18:00 David Welch [facility] URINE CULTURE 2023-12-05 15:05:00 John Paul Welch [facility] POCT URINALYSIS 2023-12-05 13:55:00 Porfirio Welch [facility] POCT TEST 2023-12-05 13:55:00 Daisy Welch [facility] POCT TEST 2023-10-24 23:33:00 Rosy Cullen ra [facility] NOTICE OF PRIVACY PRACTICES 2023-07-21 00:54:08 Doctor Unassigned, [place] [facility] CONSENT/REFUSAL FOR DIAGNOSIS AND TREATMENT 2023-07-21 00:53:02 Doctor Unassigned, [place] [facility] INSURANCE CORRESPONDENCE 2023-05-29 06:01:00 Doc tor Unassigned, [place] [facility] ASSIGNMENT OF BENEFITS 2023-05-14 19:22:21 Docto r Unassigned, [place] [facility] FLU VACC ([id number]), 6 MO-64 YRS, .5ML, IM, QUAD (FLUCELVAX) 2023-03-11 15:50:11 Mundo Haji [facility] POCT TEST 2023-02-20 02:16:00 Kassy Alfaro [facility] LIPASE 2023-02-20 02:14:00 Corrina Alfaro [facility] COMP. METABOLIC PANEL ([id number]) 2023-02-20 02:14:00 Corrina Alfaro [facility] CBC WITH DIFF 2023-02-20 02:14:00 Corrina Alfaro [facility] URINALYSIS 2023-02-20 02:14:00 [facility] RAPID INFLUENZA A/B 2023-02-20 02:14:00 Kassy Alfaro [facility] COVID-19 (ID NOW RAPID TESTING) 2023-02-20 02:14:00 Corrina Alfaro [facility] CONSENT/REFUSAL FOR DIAGNOSIS AND TREATMENT 2023-02-20 01:41:15 Doctor Unassigned, [place] [facility] CT ABDOMEN PELVIS W CONTRAST 2022-11-10 08:36:00 Rui Hernadez [facility] POCT TEST 2022-11-10 07:09:00 Rogelio Whyte [facility] URINALYSIS 2022-11-10 07:02:00 [facility] LIPASE 2022-11-10 06:59:00 [facility] MAGNESIUM 2022-11-10 06:59:00 [facility] COMP. METABOLIC PANEL ([id number]) 2022-11-10 06:59:00 Rogelio Whyte [facility] CBC WITH DIFF 2022-11-10 06:59:00 Rogelio Whyte [facility] POCT TEST 2022-05-07 00:00:00 Jessica Pedersen [facility] FIRST TRIMESTER LESS THAN 14 WEEKS WITH TRANSVAGINAL 2022-04-17 18:30:37 Jessica Pedersen [facility] POCT GLUCOSE (AUTOMATED) 2022-04-17 14:26:00 Franklin Matos [facility] US PELVIS COMPLETE WITH TRANSVAGINAL 2022-04-17 08:08:02 Irving Matos [facility] ACUTE CARE VENOUS BLOOD GAS 2022-04-17 07:25:00 Irving Matos [facility] ABORH CONFIRMATION (LAB ONLY) 2022-04-17 06:13:00 Irving Matos [facility] HB ABO GROUPING 2022-04-17 05:25:00 Irving Matos [facility] COMP. METABOLIC PANEL ([id number]) 2022-04-17 05:23:00 Irving Matos [facility] TOTAL BETA HCG ASSAY 2022-04-17 05:23:00 Irving Matos [facility] CBC WITH DIFF 2022-04-17 05:23:00 Irving Matos [facility] GLYCOSYLATED HEMOGLOBIN (A1C) 2022-04-17 05:23:00 Irving Matos [facility] URINALYSIS 2022-04-17 05:23:00 Irving Matos [facility] NOTICE OF PRIVACY PRACTICES 2022-04-17 05:07:59 Doctor Unassigned, [place] [facility] CONSENT/REFUSAL FOR DIAGNOSIS AND TREATMENT 2022-04-17 05:07:05 Doctor Unassigned, [place] [facility] Encounters Start Date/Time End Date/Time Encounter Type Admission Type Attending [facility] Care Facility Care Department Encounter ID Source 2022-04-17 16:27:52 Outpatient X [facility] JOHNY [id number] [facility] 2024-05-04 09:00:00 2024-05-04 09:00:00 Outpatient R OBI-JASON , GURJIT OBI-JASON , GURJIT [facility] [id number] [facility] 2023-12-18 19:48:00 2023-12-18 21:53:00 Emergency X SIMI CULLEN SANDR[facility] ERT [id number] [facility] 2023-12-18 19:48:00 2023-12-18 21:53:00 Emergency Simi Cullen [facility] [id number] [id number] [facility] 2023-12-17 00:00:00 2023-12-17 10:00:15 Telephone Mirlande Patel [facility] SUPERVISOR ACCOUNTS RECEIVABLE [facility] MATERNAL & CHILD [facility] [id number] [facility] 2023-12-12 10:00:00 2023-12-12 10:26:21 Outpatient BIBIANA BAILEY KRISTIN [facility] [id number] [facility] 2023-12-12 10:00:00 2023-12-12 10:26:21 Office Visit Risk, AnetaRmchp-N p/Bibiana Abraham [facility] SUPERVISOR ACCOUNTS RECEIVABLE [facility] & CHILD [facility] [id number] [id number] [facility] 2023-12-09 08:15:00 2023-12-09 09:28:13 Outpatient MIRLANDE TUCKER [facility] [id number] [facility] 2023-12-09 08:15:00 2023-12-09 09:28:13 [place] Visit Lab, AnetaRmMirlande Moulton [facility] SUPERVISOR ACCOUNTS RECEIVABLE [facility] & CHILD [facility] [id number] [id number] [facility] 2023-12-06 00:00:00 2023-12-06 16:28:02 Telephone John Paul Welch [facility] [id number] [id number] [facility] 2023-12-06 00:00:00 2023-12-06 16:23:33 Abstract John Paul Welch [facility] 1..840.114 [id number] [id number] [facility] 2023-12-05 09:15:00 2023-12-05 10:21:[address] [id number] [facility] 2023-12-05 09:15:00 2023-12-05 10:21:02 Initial Visit Zachary Welchmorejulieta [facility] 1..840.114 [id number] [facility] 2023-12-05 07:30:00 2023-12-05 07:30:00 Out[facility] R CUONG [facility]IA[facility] [facility] [id number] [facility] 2023-12-03 08:00:00 2023-12-03 08:00:00 Outpatient R MIRLANDE PATEL [facility] [id number] [facility] 2023-10-24 18:24:00 2023-10-24 18:55:00 Emergency X SIMI CULLEN [facility] [id number] [facility] 2023-10-24 18:24:00 2023-10-24 18:55:00 Emergency Simi Cullen [facility] 1..840.114 350.1.13.10 4.2.7.2.686 [id number] [facility] 2023-08-15 10:40:00 2023-08-15 10:40:00 Outpatient R OBI-GURJIT GOMEZ OBI-GURJIT GOMEZ [facility] [id number] [facility] 2023-08-01 13:20:00 2023-08-01 13:20:00 Outpatient R OBI-JASON , GURJIT OBI-JASON , GURJIT [facility] [id number] [facility] 2023-07-20 19:04:00 2023-07-20 19:53:00 Emergency X MAURICE WILKINS [facility] ERT [id number] [facility] 2023-07-20 19:04:00 2023-07-20 19:53:00 Emergency Maurice Wilkins [facility] 1.2.840.114 350.1.13.10 4.2.7.2.686 [id number] 084 [id number] [facility] 2023-07-18 08:00:00 2023-07-18 08:15:00 Leathersmith Visit 2, Adc Lab Obi-JasonGurjit lamb [facility] 1.2.840.114 350.1.13.10 4.2.7.2.686 [id number] [facility] 2023-07-18 08:00:00 2023-07-18 08:00:00 Outpatient R OBI-JASON , GURJIT OBI-JASON , GURJIT [facility] [id number] [facility] 2023-07-02 16:00:00 2023-07-02 16:00:00 Outpatient R OBI-JASON , GURJIT OBI-JASON , GURJIT [facility] [id number] [facility] 2023-05-29 00:00:00 2023-05-29 00:00:00 Telephone Mundo Haji [facility] 1.2.840.114 350.1.13.10 4.2.7.2.686 [id number] [id number] [facility] 2023-05-29 00:00:00 2023-05-29 00:00:00 Orders Only Doctor Unassigned, Myrtle [facility] 1.2.840.114 350.1.13.10 4.2.7.2.686 [id number] [facility] 2023-05-28 00:00:00 2023-05-28 00:00:00 Telephone Tristan [facility] BU[facility] 1.2.840.114 350.1.13.10 4.2.7.2.686 [id number] 044 [id number] [facility] 2023-05-24 00:00:00 2023-05-24 00:00:00 Telephone Tristan [facility] BU[facility]ING 1.2.840.114 350.1.13.10 4.2.7.2.686 [id number] 044 [id number] [facility] 2023-05-22 00:00:00 2023-05-22 00:00:00 Telephone Tristan [facility] BU[facility]ING 1.2.840.114 350.1.13.10 4.2.7.2.686 [id number] 044 [id number] [facility] 2023-05-22 00:00:00 2023-05-22 00:00:00 Telephone Simon Santa [facility] 1.2.840.114 350.1.13.10 4.2.7.2.686 [id number] 044 [id number] [facility] 2023-05-16 00:00:00 2023-05-16 00:00:00 Telephone Tristan [facility] BUILDING 1.2.840.114 350.1.13.10 4.2.7.2.686 [id number] 044 [id number] [facility] 2023-05-16 00:00:00 2023-05-16 00:00:00 Telephone Tristan [facility] 1.2.840.114 350.1.13.10 4.2.7.2.686 [id number] 044 [id number] [facility] 2023-05-15 00:00:00 2023-05-15 00:00:00 Telephone Tristan [facility] 1.2.840.114 350.1.13.10 4.2.7.2.686 [id number] 044 [id number] [facility] 2023-05-14 13:20:00 2023-05-14 14:10:20 Office Visit Tristan [facility] 1.2840.114 350.1.13.10 4.2.7.2.686 [id number] [id number] [facility] 2023-05-14 13:20:00 2023-05-14 14:10:20 [facility] [id number] [facility] 2023-05-14 00:00:00 2023-05-14 00:00:00 Orders Only Doctor Unassigned, Myrtle [facility] 1.2840.114 350.1.13.10 4.2.7.2.686 [id number] [id number] [facility] 2023-05-14 00:00:00 2023-05-14 00:00:00 Patient Outreach Elayne Lenz [facility] 1.2.840.114 350.1.13.10 4.2.7.2.686 [id number] [id number] [facility] 2023-05-13 00:00:00 2023-05-13 00:00:00 Telephone Mundo Haji [facility] BU[facility] 1.2.840.114 350.1.13.10 4.2.7.2.686 [id number] 044 [id number] [facility] 2023-05-10 00:00:00 2023-05-10 00:00:00 Telephone Mundo Haji [facility] 1.2.840.114 350.1.13.10 4.2.7.2.686 [id number] 044 [id number] [facility] 2023-05-10 00:00:00 2023-05-10 00:00:00 Telephone Mundo Haji [facility] 1.2.840.114 350.1.13.10 4.2.7.2.686 [id number] 044 [id number] [facility] 2023-04-30 00:00:00 2023-04-30 00:00:00 Telephone Mundo Haji [facility] 1.2.840.114 350.1.13.10 4.2.7.2.686 [id number] 044 [id number] [facility] 2023-04-23 00:00:00 2023-04-23 00:00:00 Patient Outreach Mary Lou Mackey [facility] 1.2.840.114 350.1.13.10 4.2.7.2.686 [id number] 044 [id number] [facility] 2023-04-23 00:00:00 2023-04-23 00:00:00 Telephone Gurjit Brand [facility] 1.2.840.114 350.1.13.10 4.2.7.2.686 [id number] 044 [id number] [facility] 2023-04-22 10:40:00 2023-04-22 10:40:00 Office Visit [facility]it [facility] 1.2.840.114 350.1.13.10 4.2.7.2.686 [id number] 044 [id number] [facility] 2023-04-22 10:30:00 2023-04-22 10:30:00 Outpatient R MUNDO HAJI OGLOYDAJAMI [facility] [id number] [facility] 2023-04-22 10:00:00 2023-04-22 10:00:00 Leathersmith Visit 2, Adc Lab Tristan [facility] BUILDING 1.2.840.114 350.1.13.10 4.2.7.2.686 [id number] [facility] 2023-04-22 10:40:00 2023-04-22 09:40:51 Outpatient R GURJIT BRAND OBI-JASON , GURJIT [facility] [id number] [facility] 2023-03-12 00:00:00 2023-03-12 00:00:00 Patient Outreach Delfin Elayne Meyer [facility] 1.2.840.114 350.1.13.10 4.2.7.2.686 [id number] 044 [id number] [facility] 2023-03-11 10:00:00 2023-03-11 10:54:20 Office Visit Malou, Marcosedmundbradycristopher [facility] 1.2.840.114 350.1.13.10 4.2.7.2.686 [id number] [id number] [facility] 2023-03-11 10:00:00 2023-03-11 10:54:20 Outpatient R MUNDO HAJI OGECHUKWU [facility] [id number] [facility] 2023-02-19 20:57:00 2023-02-20 00:16:00 Emergency X CORRINA ALFARO [facility] ERT [id number] [facility] 2023-02-19 20:57:00 2023-02-20 00:16:00 Emergency Corrina Alfaro [facility] 1.840.114 350.1.13.10 4.2.7.2.686 [id number] [facility] 2022-11-13 15:00:00 2022-11-13 15:00:00 Outpatient R JESSICA PEDERSEN [facility] [id number] [facility] 2022-11-13 15:00:00 2022-11-13 15:00:00 Outpatient R JESSICA PEDERSEN [facility] [id number] [facility] 2022-11-10 01:48:00 2022-11-10 04:29:00 Emergency X Rogelio WHYTE [facility] ERT [id number] [facility] 2022-11-10 01:48:00 2022-11-10 04:29:00 Emergency X Rogelio WHYTE [facility] ERT [id number] [facility] 2022-11-10 01:48:00 2022-11-10 04:29:00 Emergency Rogelio Whyte Roopa [facility] 1.840.114 350.1.13.10 4.2.7.2.686 [id number] [id number] [facility] 2022-05-07 15:30:00 2022-05-07 16:17:33 Outpatient R JESSICA PEDERSEN [facility] [id number] [facility] 2022-05-07 15:30:00 2022-05-07 16:17:33 Office Visit Jessica Pedersen [facility] 1..840.114 350.1.13.10 4.2.7.2.686 [id number] [facility] 2022-04-16 23:14:00 2022-04-17 16:15:00 Emergency Shawna, Jessica Perrin [facility] 1.2.840.114 350.1.13.10 4.2.7.2.686 [id number] [facility] 2022-04-16 23:14:00 2022-04-17 16:15:00 Outpatient X JESSICA PEDERSEN [facility] JOHNY [id number] [facility] 2022-03-19 09:40:00 2022-03-19 09:40:00 Outpatient R YVES MANRIQUEZ [facility] [id number] [facility] 2016-11-30 16:59:48 2016-11-30 17:28:00 Emergency X UBALDO TREVINO DENISE [facility] ERT [id number] [facility] Results Test Description Test Time Test Comments Results Result Co [facility]ments Source [id number] 13:55:00* Test Item Value Reference Range Interpretation Comme nts POCT PREG (test code = 1605) Positive On board controls acceptable with C Line (test code = 3574) Yes POCT PREG LOT # (test code = 3575) POCT PREG TEST DATE ( test code = 3576) [facility] [id number] 23:33:00* Test Item Value Reference Range Interpretation Comme nts POCT PREG (test code = 1605) Negative On board controls acceptable with C Line (test code = 3574) Yes POCT PREG LOT # (test code = 3575) [id number] POCT PREG TEST DATE ( test code = 3576) 09/27/2024 Lab Interpretation (test cod e = 57270-1) Normal [facility] WITH [id number] 03:31:22* Test Item Value Reference Range Interpretation Comme nts WBC (test code = 6690-2) 14.70 See_Comment H [Automated messa ge] The system which generated this result transmitted reference range: 4.30 - 11.10 10*3/?L. The reference range was not used to interpret this result as normal/abnormal. RBC (test code = 789-8) 5.12 See_Comment [Automated [employer]] The system which generated this result transmitted reference range: 3.93 - 5.25 10*6/?L. The reference range was not used to interpret this result as normal/abnormal. HGB (test code = 718-7) 14.3 g/dL 11.6-15.0 HCT (test code = 4544-3) 41.6 % 35.7-45.2 MCV (test code = 787-2) 81.3 fL 80.6-95.5 MCH (test code = 785-6) 27.9 pg 25.9-32.8 MCHC (test code = 786-4) 34.4 g/dL 31.6-35.1 RDW-SD (test code = 50127-0) 36.2 fL 39.0-49.9 L RDW-CV (test code = 788-0) 12.4 % 12.0-15.5 PLT (test code = 777-3) 173 See_Comment [Automated [employer]] The system which generated this result transmitted reference range: 166 - 358 10*3/?L. The reference range was not used to interpret this result as normal/abnormal. MPV (test code = 73964-8) 13.3 fL 9.5-12.9 H IPF % (test code = 2789797039) 21.5 % 1.3-7.7 H Platelet count measured by fluorescence method. NRBC/100 WBC (test code = 8338246787) 0.0 See_Comment [Automated [employer]] The system which generated this result transmitted reference range: 0.0 - 10.0 /100 WBCs. The reference range was not used to interpret this result as normal/abnormal. NRBC x10^3 (test code = 2000222807) See_Comment [Automated [employer]] The system which generated this result transmitted reference range: 10*3/?L. The reference range was not used to interpret this result as normal/abnormal. SEG % (test code = 40113-0) 60 % 33-76 BAND % (test code = 98859-6) 5 % 0-1 H LYMPH % (test code = 45223-5) 27 % 14-54 REACT LYMPH % (test code = 3724989633) 1 % MONO % (test code = 43509-1) 6 % 0-4 H EOS % (test code = 89586-9) 1 % 0-3 ANC (test code = 753-4) 9.56 10*3/uL 1.88-7.09 H Lab Interpretation (test code = 71214-6) Abnormal [facility]. METABOLIC PANEL (48271)2023-02-20 02:48:49* Test Item Value Reference Range Interpretation Comme nts NA (test code = 6688482509) 134 mmol/L 135-145 L K (test code = 9564371483) 3.8 mmol/L 3.5-5.0 CL (test code = 5282902282) 99 mmol/L 98-108 CO2 TOTAL (test code = 2028662128) 27 mmol/L 23-31 AGAP (test code = 9274525690) 8 2-16 BUN (test code = 1129602725) 11 mg/dL 7-23 GLUCOSE (test code = 2566174196) 258 mg/dL 70-110 H CREATININE (test code = 2180672850) 0.47 mg/dL 0.50-1.04 L TOTAL BILI (test code = 5683357483) 0.4 mg/dL 0.1-1.1 CALCIUM (test code = 5425945247) 9.1 mg/dL 8.6-10.6 T PROTEIN (test code = 8676540176) 8.2 g/dL 6.3-8.2 ALBUMIN (test code = 9902326361) 4.3 g/dL 3.5-5.0 ALK PHOS (test code = 3239396710) 113 U/L 34-122 ALTv (test code = 1742-6) 45 U/L 5-35 H AST(SGOT) (test code = 6918743366) 35 U/L 13-40 eGFR (test code = 7531125130) 161.5 mL/min/1.73m2 KEELEY (test code = KEELEY) Association of Glomerular Filtration Rate (GFR) and Staging of Kidney Disease* +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 report Height 1.626 m (5' 4") BP (!) 126/96 Pulse 89 Resp 14 Temp 37 ?C (98.6 ?F) Temp source Oral SpO2 97 % Measured on Room air Physical Exam Vitals and nursing note reviewed. Constitutional: Appearance: Normal appearance. HENT: Head: Normocephalic and atraumatic. Cardiovascular: Rate and Rhythm: Normal rate. Pulses: Normal pulses. Pulmonary: Effort: Pulmonary effort is normal. No respiratory distress. Abdominal: General: There is no distension. Musculoskeletal: General: Normal range of motion. Cervical back: Normal range of motion and neck supple. Skin: General: Skin is warm. Neurological: General: No focal deficit present. Mental Status: She is alert and oriented to person, place, and time. Radiology: No orders to display Lab Results: Lab Results - No data to display EKG: If EKG completed, see Procedure Note. Orders and Treatments: Orders Placed This Encounter Procedures POCT TEST No orders of the defined types were placed in this encounter. First Provider Eval: ED Events Date/Time Event User Comments 10/24/231814 Medical Screening Begins SIMI CULLEN DO -- 10/24/231814 First Provider Evaluation SIMI CULLEN DO -- ED COURSE Diagnosis/Impression as of 10/24/23 1831 examination or test, negative result Procedures: Procedures MDM: Medical Decision Making The patient presents from home requesting a test. She reports her last menstrual period was September 21 and ended on September 25. She took a home test yesterday reports it was negative. She feels hours are better. No abdominal pain. No vaginal bleeding. Vital signs are stable in the ER. Her abdomen is soft and nontender. Her UPT is negative. She remained stable ER and is okay for discharge home with PCP follow-up. Flowsheet Documentation: Scoring Tools: No data recorded Disposition/Condition: ED Disposition ED Disposition Disch - Home Condition Stable Comment -- Discharge Medications: Patient's Medications START taking these medications No medications on file CONTINUE taking these medications which have NOT CHANGED BLOOD SUGAR DIAGNOSTIC STRIP Check blood sugar 2 times a day. E11.9. Brand per insurance. BLOOD-GLUCOSE METER KIT Check sugars 3 times a day. Dx Code E11.9. Brand per insurance. CARBOXYMETHYLCELLULOSE SODIUM OPHTHALMIC DROPS Place 2 Drops in left eye 4 (four) times daily. EYE PATCHES (OPTICLUDE EYE PATCH) MISC Use as directed GABAPENTIN 300 MG CAPSULE Take 1 capsule by mouth in the morning and 1 capsule at noon and 1 capsule in the evening. GLIPIZIDE 5 MG TABLET Take 1 tablet by mouth in the morning. LANCETS MISC Check sugars 2 times a day. Dx Code E11.9. Brand per insurance. METHYLPREDNISOLONE (MEDROL, DARYL,) 4 MG TABLETS Take by mouth SEE-INSTRUCTIONS. follow package directions SEMAGLUTIDE (OZEMPIC) 1 MG/DOSE (2 MG/1.5 ML) PNIJ inject 1 mg under the skin weekly. START taking Modified Medications as Prescribed No medications on file STOP taking these medications No medications on file Follow-up: Electronically signed by: Simi Cullen DO 10/24/23 1831 T [facility] 2023-07-20 19:52:43 Pt given printed and verbal discharge instructions regarding right sided Iqbal's palsy, encouraged hydration, Prescriptions sent to pharmacy Pt verbalized understanding of instructions, pt awake alert oriented, resp reg unlabored, skin w/d, color appropriate for race, moves all ext well,pt encouraged to follow up with pcp. Advised to seek medical attention for new/prolonged/worsening of symptoms. Awake, alert oriented, resp reg unlabored, skin w/d, pt leaving amb with steady gait, in no apparent distress, OSING MACHINE OPERATOR Maria De Jesus Iverson RN [facility] 2023-07-20 18:57:37 Pt ambulated into ER with c/o eye irritation, facial numbness, and facial droop on R side. Pt states when she brushes her teeth water comes out. Symptoms began 1 week ago. Denies numbness on all extremities. Pt was seen in DR office on for check-up but forgot to tell DR about symptoms. Pt denies issues with balance and vision. PMH: Diabetes R Braun RN [facility] 2023-07-18 08:00:00 Images from the original note were not included. Venipuncture collection performed by clean technique on the left anticubitus. Total of 1 attempts were made. Slight pressure and a bandage/dressing were applied to the site(s). The patient experienced no complications. The following specimens were processed according to instructions and sent to [facility] laboratories per lab order on 07/18/2023 : LT BLUE SST 1 RED LAV 2 PPT DK GREEN (LiHep) DK GREEN (SodH) CALLE DK BLUE (K2) DK BLUE (S) ACD Blood Culture NIPT/NTD Patient has been identified by and was provided with cup, antiseptic towelette, and clean catch instructions. 1 urine specimen(s) sent. Unpreserved 1 Urine Culture Aptima tube Other urine OSING MACHINE OPERATOR [facility] 2023-05-29 11:44:56 Images from the original note were not included. R Urbano [facility] 2023-05-28 15:04:49 PA submitted online at [email or web address]. Will await response from insurance company. [facility] 2023-05-28 10:26:12 Images from the original note were not included. OSING MACHINE OPERATOR Salina Cullen [facility] 2023-05-24 16:12:13 Images from the original note were not included. OSING MACHINE OPERATOR Salina Cullen [facility] 2023-05-22 15:19:19 Form completed, faxed and confirmation received. R Chaney MA [facility] 2023-05-22 15:17:44 Form signed, faxed and confirmation received. R Chaney MA [facility] 2023-05-22 09:25:[address] in providers folder to review and sign. Tiki Bunch MA 05/22/2023 9:26 AM R Bunch MA [facility] 2023-05-22 09:18:[address] E folder for review and to be sign. R Chaney MA [facility] 2023-05-22 08:18:38 Summary: 11 pages ax, placed in Forms folder (on MAs desk) Images from the original note were not included. OSING MACHINE OPERATOR Trinity Kelsey [facility] 2023-05-22 08:03:48 Images from the original note were not included. [facility] 2023-05-17 16:05:38 PA submitted, waiting for determination. OSING MACHINE OPERATOR Val Chaney MA [facility] 2023-05-17 15:28:40 Addended by: VAL CHANEY MA on: 05/17/2023 03:28 PM Modules accepted: Orders [employer] MACHINE OPERATOR Val Chaney MA [facility] 2023-05-17 15:14:25 Glucose test device ordered but test strips also needed. Order placed. [facility] 2023-05-16 14:26:31 Attempted to call patient, no answer. Unable to leave a message, VM not set up. Ozempic not covered after attempting PA. Tiki Bunch MA 05/16/2023 2:27 PM OSING MACHINE OPERATOR Tiki Bunch MA [facility] 2023-05-16 13:56:21 Received denial for this medication. Placed notification in clinical staff folder. OSING MACHINE OPERATOR Yolanda Estrada [facility] 2023-05-16 13:48:26 Images from the original note were not included. OSING MACHINE OPERATOR Yolanda Estrada [facility] 2023-05-16 12:38:44 Additional information required for this PA. Placed form in clinical staff folder. OSING MACHINE OPERATOR Yolanda Estrada [facility] 2023-05-16 07:58:38 Images from the original note were not included. R Estrada [facility] 2023-05-15 13:31:33 PA has been faxed and confirmation received. OSING MACHINE OPERATOR Val Chaney MA [facility] 2023-05-15 12:25:47 To restart the prior auth [facility] 2023-05-15 08:33:29 Images from the original note were not included. R Cullen [facility]
--- NOTE | 2024-01-25 00:35 | EDPHYS ---
Physician Documentation [facility] Name: Lynette Topete Age: 28 yrs Sex: Female : 1995 Arrival Date: 01/24/2024 Time: 22:51 Bed IW3 Private MD: ED Physician Kenneth Nielsen HPI: 01/24 00:20 This 28 yrs old Female presents to ER via Ambulatory with complaints of cp Toothache. 00:20 The patient presents with broken tooth/teeth, pain. The problem is located in the back cp molar of right upper jaw. Onset: The symptoms/episode began/occurred intermittent for months, became worse today after biting piece of candy. Associated signs and symptoms: Pertinent negatives: dysphagia, fever, inability to eat, swelling, facial, vomiting. Severity of symptoms: in the emergency department the symptoms are unchanged, despite home interventions. Historical: - Allergies: 01/23 23:22 No Known Allergies; vc1 - PMHx: 23:22 Hypertensive disorder; Diabetes mellitus; vc1 - PSHx: 23:22 None; vc1 - Immunization history:: Client reports receiving the 2nd dose of the Covid vaccine. - Infectious Disease History:: Denies. - Social history:: Smoking status: Reported history of juuling and/or vaping. ROS: 01/24 00:25 Constitutional: Negative for body aches, chills, fever, poor PO intake, cp 00:25 Eyes: Negative for injury, pain, redness, and discharge, cp 00:25 ENT: Positive for dental pain, Negative for drainage from ear(s), ear pain, sore throat, difficulty swallowing, difficulty handling secretions, 00:25 Cardiovascular: Negative for chest pain, palpitations, 00:25 Respiratory: Negative for cough, shortness of breath, wheezing, 00:25 Abdomen/GI: Negative for abdominal pain, vomiting, diarrhea, constipation, 00:25 Neuro: Negative for altered mental status, dizziness, headache, weakness, 00:25 All other systems are negative, Exam: 00:28 Head/Face: Normocephalic, atraumatic. cp 00:28 Constitutional: The patient appears in no acute distress, alert, awake, non-toxic, well developed, well nourished, 00:28 Eyes: Periorbital structures: appear normal, Conjunctiva: normal, no exudate, no injection, Sclera: no appreciated abnormality, Lids and lashes: appear normal, bilaterally, 00:28 ENT: External ear(s): are unremarkable, Ear canal(s): are normal, clear, TM's: bulging, is not appreciated, dullness, bilaterally, erythema, is not appreciated, bilaterally, Nose: is normal, Mouth: Lips: moist, Oral mucosa: pink and intact, moist, Posterior pharynx: Airway: no evidence of obstruction, patent, erythema, is not appreciated, exudate, is not appreciated, Dental exam: abscess, is not appreciated, dental caries, fractured teeth are noted, specifically the upper right third molar (#1), gum swelling, not appreciated, pain, that is moderate, specifically in the upper right third molar (#1), Voice: is normal, 00:28 Neck: ROM/movement: is normal, is supple, without pain, no range of motions limitations, no meningismus, no nuchal rigidity, Lymph nodes: no appreciated lymphadenopathy, 00:28 Chest/axilla: Inspection: normal, 00:28 Cardiovascular: Rate: normal, 00:28 Respiratory: the patient does not display signs of respiratory distress, Respirations: normal, no use of accessory muscles, no retractions, labored breathing, is not present, Breath sounds: are clear throughout, no decreased breath sounds, no stridor, no wheezing, 00:28 Neuro: Orientation: to person, place \T\ time. Mentation: is normal, Vital Signs: 01/23 23:20 BP 144 / 96; Pulse 65; Resp 15; Temp 97.1; Pulse Ox 97% ; Weight 79.83 kg; Height 5 ft. vc1 0 in. ; Pain 9/10; 01/24 00:51 BP 142 / 92; Pulse 66; Resp 14; Temp 97.6; Pulse Ox 98% ; vc1 01/23 23:20 Body Mass Index 34.37 (79.83 kg, 152.4 cm) vc1 01/23 23:20 Pain Scale: Adult vc1 MDM: 01/23 23:27 Patient medically screened. cp 01/24 06:03 Data reviewed: vital signs, nurses notes. sp4 Administered Medications: 00:49 Drug: Hydrocodone-Acetaminophen PO (7.5 mg-325 mg) 1 tabs PO once; RASS on ADMIN: vc1 Combtv4, Very Agttd3, Agttd2, Rstlss1, AlertClm0, Drwsy-1, Lt Sdtn-2, Mod Sdtn-3, Dp Sdtn-4, UnArsble-5 Route: PO; 00:50 Follow up: Response: Medication administered at discharge. vc1 00:49 Drug: Amoxicillin-Clavulanate PO 875 mg PO once Route: PO; vc1 00:49 Follow up: Response: Medication administered at discharge. vc1 00:49 Drug: Ibuprofen PO 800 mg PO once Route: PO; vc1 00:49 Follow up: Response: Medication administered at discharge. vc1 Disposition: 06:03 Co-signature as Attending Physician, Kenneth Nielsen MD I agree with the assessment sp4 and plan of care. I reviewed the patient's care provided by the Advanced Practice Provider and agree with the diagnosis and treatment plan. Disposition Summary: 01/25/24 00:35 Discharge Ordered Notes: Location: Home cp Problem: new cp Symptoms: have improved cp Condition: Stable cp Diagnosis - Disorder of teeth and supporting structures, unspecified cp Followup: cp - With: Jose Sampson DDS - When: 5 - 6 days - Reason: Recheck today's complaints Discharge Instructions: - Discharge Summary Sheet cp - Dental Pain cp Forms: - Medication Reconciliation Form cp - Antibiotic Education cp - Prescription Opioid Use cp - Patient Portal Instructions cp - Leadership Thank You Letter cp Prescriptions: - Amoxicillin 875 mg Oral Tablet - take 1 tablet ORAL route every 12 hours for 10 days; 20 tablet; Refills: 0, cp Product Selection Permitted - Ibuprofen 800 mg Oral Tablet - take 1 tablet ORAL route every 8 hours As needed take with food; 30 tablet; cp Refills: 0, Product Selection Permitted Signatures: Miquel Richards PA PA cp Citlali Sparks RN RN vc1 Kenneth Nielsen MD MD sp4
--- NOTE | 2024-01-25 00:35 | ER ---
Nurse's Notes [facility] Name: Lynette Topete Age: 28 yrs Sex: Female : 1995 Arrival Date: 01/24/2024 Time: 22:51 Bed IW3 Private MD: Diagnosis: Disorder of teeth and supporting structures, unspecified Presentation: 01/23 23:20 Chief complaint: Patient states: right upper wisdom tooth pain. Coronavirus screen: vc1 Client denies travel out of the [place] in the last 14 days. At this time, the client does not indicate any symptoms associated with coronavirus-19. Ebola Screen: Patient negative for fever greater than or equal to 101.5 degrees Fahrenheit, and additional compatible Ebola Virus Disease symptoms Patient denies exposure to infectious person. Patient denies travel to an Ebola-affected area in the 21 days before illness onset. No symptoms or risks identified at this time. Initial Sepsis Screen: Does the patient meet any 2 criteria? No. Patient's initial sepsis screen is negative. Does the patient have a suspected source of infection? No. Patient's initial sepsis screen is negative. Risk Assessment: Do you want to hurt yourself or someone else? Patient reports no desire to harm self or others. Onset of symptoms is unknown. 23:20 Method Of Arrival: Ambulatory vc1 23:20 Acuity: AICHA 4 vc1 Triage Assessment: 23:20 General: Appears in no apparent distress. uncomfortable, well groomed, well developed, vc1 well nourished, Behavior is calm, cooperative, appropriate for age. Pain: Complains of pain in upper right third molar Pain does not radiate. Pain currently is 9 out of 10 on a pain scale. EENT: Reports pain in upper right third molar (#1). Neuro: Level of Consciousness is awake, alert, obeys commands, Oriented to person, place, time, situation, Appropriate for age. Cardiovascular: Heart tones S1 S2 Capillary refill < 3 seconds Patient's skin is warm and dry. Respiratory: Airway is patent Respiratory effort is even, unlabored, Respiratory pattern is regular, symmetrical, Breath sounds are clear bilaterally. GI: Abdomen is round non-distended. : No deficits noted. No signs and/or symptoms were reported regarding the genitourinary system. Derm: Skin is intact, is healthy with good turgor, Skin is dry, Skin is normal, Skin temperature is warm. Musculoskeletal: Circulation, motion, and sensation intact. Range of motion: intact in all extremities. Historical: - Allergies: 23:22 No Known Allergies; vc1 - PMHx: 23:22 Hypertensive disorder; Diabetes mellitus; vc1 - PSHx: 23:22 None; vc1 - Immunization history:: Client reports receiving the 2nd dose of the Covid vaccine. - Infectious Disease History:: Denies. - Social history:: Smoking status: Reported history of juuling and/or vaping. Screenin:22 [facility] ED Fall Risk Assessment (Adult) History of falling in the last 3 months, vc1 including since admission No falls in past 3 months (0 pts) Confusion or Disorientation No (0 pts) Intoxicated or Sedated No (0 pts) Impaired Gait No (0 pts) Mobility Assist Device Used No (0 pt) Altered Elimination No (0 pt) Score/Fall Risk Level 0 - 2 = Low Risk Oriented to surroundings, Maintained a safe environment, Educated pt \T\ family on fall prevention, incl call for assistance when getting out of bed. Abuse screen: Denies threats or abuse. Nutritional screening: No deficits noted. Tuberculosis screening: No symptoms or risk factors identified. Vital Signs: 23:20 BP 144 / 96; Pulse 65; Resp 15; Temp 97.1; Pulse Ox 97% ; Weight 79.83 kg; Height 5 ft. vc1 0 in. ; Pain 9/10; 01/24 00:51 BP 142 / 92; Pulse 66; Resp 14; Temp 97.6; Pulse Ox 98% ; vc1 01/23 23:20 Body Mass Index 34.37 (79.83 kg, 152.4 cm) vc1 01/23 23:20 Pain Scale: Adult vc1 ED Course: 01/23 22:54 Patient arrived in ED. ra3 23:00 Miquel Richards PA is PHCP. cp 23:00 Kenneth Nielsen MD is Attending Physician. cp 23:22 Triage completed. vc1 23:22 Arm band placed on right wrist. vc1 01/24 00:35 Jose Sampson DDS is Referral Physician. cp 00:52 treated from [facility]. Provided Education on: f/u with dentist; complete abx. vc1 00:52 No provider procedures requiring assistance completed. Patient did not have IV access vc1 during this emergency room visit. Administered Medications: 00:49 Drug: Hydrocodone-Acetaminophen PO (7.5 mg-325 mg) 1 tabs PO once; RASS on ADMIN: vc1 Combtv4, Very Agttd3, Agttd2, Rstlss1, AlertClm0, Drwsy-1, Lt Sdtn-2, Mod Sdtn-3, Dp Sdtn-4, UnArsble-5 Route: PO; 00:50 Follow up: Response: Medication administered at discharge. vc1 00:49 Drug: Amoxicillin-Clavulanate PO 875 mg PO once Route: PO; vc1 00:49 Follow up: Response: Medication administered at discharge. vc1 00:49 Drug: Ibuprofen PO 800 mg PO once Route: PO; vc1 00:49 Follow up: Response: Medication administered at discharge. vc1 Medication: 00:52 VIS not applicable for this client. vc1 Outcome: 00:35 Discharge ordered by . mariam 00:52 Discharged to home ambulatory, vc1 00:52 Condition: good 00:52 Discharge instructions given to patient, Instructed on discharge instructions, follow up and referral plans. medication usage, Demonstrated understanding of instructions, follow-up care, medications, Prescriptions given X 2, 00:52 Patient left the ED. vc1 Signatures: Miquel Richards PA PA cp Calcote, Vanessa RN RN vc1 Cristin Valles ra3
[2024-01-25] MEDS ORDERED: AMOX/K CLAV 875 MG TAB ONE (00:44)
[2024-01-25] MEDS ORDERED: IBUPROFEN 400 MG TAB ONE (00:44)
[2024-01-25] MEDS ORDERED: HYDROCODONE/APAP 7.5/325 MG TAB ONE (00:45)
[2024-01-25 00:58] VITALS: BP 142/92; TEMP 97.6; O2SAT 98
== END 2024-01-25 00:52 | disposition home or self-care (01) ==
LOC: ER 22:51
DX: K02.9 Dental caries, unspecified (principal); S02.5XXA Fracture of tooth (traumatic), initial encounter for closed fracture
CPT/HCPCS: 99283

== ENCOUNTER 2024-03-16 08:59 | Emergency (ER) | payer OTHER ==
[2024-03-16] MEDS ORDERED: CYCLOBENZAPRINE 10 MG TAB ONE (09:22)
[2024-03-16] MEDS ORDERED: KETOROLAC 30 MG/ML INJ ONE (09:22)
[2024-03-16 09:54] LABS: Specific Gravity > 1.030 (1.005-1.030)
[2024-03-16 09:55] LABS: Specific Gravity > 1.030 (1.005-1.030); Sqamous Epithelial <5 /HPF (None Seen); Urine Bacteria <20 /HPF (<20); Urine Bilirubin NEGATIVE (Negative); Urine Blood 1+ (Negative); Urine Clarity Clear (Clear); Urine Color Light-Yellow (Yellow); Urine Culture Reflex Order REFLEXED; Urine Glucose 4+ (Over) (Negative); Urine Ketones NEGATIVE (Negative); Urine Micro Reflex YN NO BILL MICROSCOPIC; Urine Mucus Slight /HPF (None Seen); Urine Nitrite NEGATIVE (Negative); Urine Protein 1+ (Negative); Urine Urobilinogen Normal (Normal); Urine WBC 20-50 /HPF (<5)
--- NOTE | 2024-03-16 10:21 | EDPHYS ---
Physician Documentation [facility] Name: Lynette Topete Age: 28 yrs Sex: Female : 1995 Arrival Date: 03/16/2024 Time: 08:59 Bed 12 Private MD: ED Physician Ted Poon HPI: 03/16 09:25 This 28 yrs old Female presents to ER via Ambulatory with complaints of Back sb4 Pain. 09:25 The patient presents with pain that is acute, with no known mechanism of injury. The sb4 symptoms are located in the low back. Onset: The symptoms/episode began/occurred 2 day(s) ago. The pain does not radiate. Associated signs and symptoms: The patient has no apparent associated signs or symptoms. The problem was sustained without known cause. Modifying factors: The patient symptoms are alleviated by nothing, the patient symptoms are aggravated by any movement. The patient has not experienced similar symptoms in the past. Historical: - Allergies: :24 No Known Allergies; ll1 - Home Meds: :24 None [Active]; ll1 - PMHx: :24 diabetes mellitus; Hypertensive disorder; ll1 - PSHx: :24 None; ll1 - Immunization history:: Adult Immunizations up to date. - Infectious Disease History:: Denies. - Social history:: Smoking status: Reported history of juuling and/or vaping. Patient denies any tobacco usage or history of. ROS: 09:25 Constitutional: Negative for fever, chills, and weight loss, sb4 09:25 Back: Positive for pain at rest, pain with movement, of the left low back and right low back, 09:25 All other systems are negative, Exam: 09:25 Constitutional: This is a well developed, well nourished patient who is awake, alert, sb4 and in no acute distress. Head/Face: Normocephalic, atraumatic. Eyes: Extra-ocular motions intact. Periorbital areas with no swelling, redness, or edema. ENT: Mucous membranes moist. Cardiovascular: Regular rate and rhythm with a normal S1 and S2. Respiratory: No increased work of breathing, no retractions or nasal flaring. Skin: Warm, dry with normal turgor. Normal color with no rashes, no lesions, and no evidence of cellulitis. 09:25 Back: pain, that is moderate, of the right low back and left low back, ROM is painful, normal spinal alignment noted, CVA tenderness, is absent, 09:25 Neuro: Motor: moves all fours, Sensation: is normal, Gait: is steady, Vital Signs: 09:05 BP 134 / 95; Pulse 86; Resp 15; Temp 98; Pulse Ox 100% ; Weight 78.47 kg; Height 5 ft. ll1 0 in. ; Pain 02/03; 09:05 Body Mass Index 33.79 (78.47 kg, 152.4 cm) ll1 09:05 Pain Scale: Adult ll1 MDM: 09:05 Medical Screening Exam initiated sb4 10:16 Data reviewed: vital signs, nurses notes, lab test result(s). sb4 03/16 09:14 Order name: UAM; Complete Time: 10:14 sb4 03/16 09:27 Order name: Test, Urine; Complete Time: 10:00 sb4 03/16 10:16 Order name: Urine Culture; Complete Time: 13:27 EDMS 03/16 10:32 Order name: Glucose, Ancillary Testing; Complete Time: 10:33 EDMS 03/16 10:15 Order name: Accucheck; Complete Time: 10:20 sb4 Administered Medications: 09:26 Drug: Ketorolac IM 30 mg IM once {Note: pain 02/03 .} Route: IM; Site: right vastus ll1 lateralis; 10:33 Follow up: Response: No adverse reaction hb 09:27 Drug: Cyclobenzaprine PO 10 mg PO once Route: PO; ll1 10:33 Follow up: Response: No adverse reaction hb Disposition Summary: 03/16/24 10:21 Discharge Ordered Notes: Location: Home sb4 Problem: new sb4 Symptoms: have improved sb4 Condition: Stable sb4 Diagnosis - Low back pain sb4 - Type 2 diabetes mellitus with hyperglycemia sb4 - UTI/ Urinary tract infection, site not specified sb4 Followup: sb4 - With: Emergency Department - When: As needed - Reason: Fever > 102 F, Worsening of condition Discharge Instructions: - Discharge Summary Sheet sb4 - Urinary Tract Infection, Adult, [id number] sb4 - Type 2 Diabetes Mellitus, Self-Care, Adult sb4 - Low Back Sprain or Strain Rehab sb4 Forms: - Work release form hb - Patient Portal Instructions sb4 - Leadership Thank You Letter sb4 Prescriptions: - Ibuprofen 600 mg Oral Tablet - take 1 tablet ORAL route every 6 hours As needed take with food; 30 tablet; sb4 Refills: 0, Product Selection Permitted - Metformin 500 mg Oral Tablet - take 1 tablet ORAL route once daily for 7 days Then take 1 tablet with morning sb4 meals AND evening meals; 21 tablet; Refills: 0, Product Selection Permitted - Cyclobenzaprine 5 mg Oral Tablet - take 1 tablet ORAL route 3 times per day As needed; 15 tablet; Refills: 0, sb4 Product Selection Permitted Signatures: Dispatcher [employer] Damaris Celestin, ICT SALES REPRESENTATIVE-C Barbara Pulido RN RN Janina Coker RN RN ll1 Stacia Garcia PA-C PAHeraclio sb4
--- NOTE | 2024-03-16 10:21 | ER ---
Nurse's Notes [facility] Name: Lynette Topete Age: 28 yrs Sex: Female : 1995 Arrival Date: 03/16/2024 Time: 08:59 Bed 12 Private MD: Diagnosis: Low back pain;Type 2 diabetes mellitus with hyperglycemia;UTI/ Urinary tract infection, site not specified Presentation: 03/16 09:05 Chief complaint: Patient states: Low back pain for 2 days. Slight cough for 2 days. ll1 Coronavirus screen: Client denies travel out of the [place] in the last 14 days. At this time, the client does not indicate any symptoms associated with coronavirus-19. Ebola Screen: Patient denies travel to an Ebola-affected area in the 21 days before illness onset. Initial Sepsis Screen: Does the patient meet any 2 criteria? No. Patient's initial sepsis screen is negative. Does the patient have a suspected source of infection? No. Patient's initial sepsis screen is negative. Risk Assessment: Do you want to hurt yourself or someone else? Patient reports no desire to harm self or others. Onset of symptoms was March 15, 2024. 09:05 Method Of Arrival: Ambulatory ll1 09:05 Acuity: AICHA 4 ll1 Triage Assessment: 09:05 General: Appears uncomfortable, Behavior is calm, cooperative, appropriate for age. ll1 Pain: Complains of pain in low back Quality of pain is described as aching. Respiratory: Reports cough that is dry. Musculoskeletal: Reports pain in low back. Historical: - Allergies: 09:24 No Known Allergies; ll1 - Home Meds: 09:24 None [Active]; ll1 - PMHx: 09:24 diabetes mellitus; Hypertensive disorder; ll1 - PSHx: 09:24 None; ll1 - Immunization history:: Adult Immunizations up to date. - Infectious Disease History:: Denies. - Social history:: Smoking status: Reported history of juuling and/or vaping. Patient denies any tobacco usage or history of. Screenin:30 [facility] ED Fall Risk Assessment (Adult) History of falling in the last 3 months, ll1 including since admission No falls in past 3 months (0 pts) Confusion or Disorientation No (0 pts) Intoxicated or Sedated No (0 pts) Impaired Gait No (0 pts) Mobility Assist Device Used No (0 pt) Altered Elimination No (0 pt) Score/Fall Risk Level 0 - 2 = Low Risk Maintained a safe environment, Hourly rounding (assess needs \T\ fall precautionary measures) done. Abuse screen: Denies threats or abuse. Nutritional screening: No deficits noted. Tuberculosis screening: No symptoms or risk factors identified. Assessment: 09:28 Reassessment: No changes from previously documented assessment. Patient and/or family ll1 updated on plan of care and expected duration. Pain level reassessed. Patient is alert, oriented x 3, equal unlabored respirations, skin warm/dry/pink. 09:45 Reassessment: No changes from previously documented assessment. Patient and/or family ll1 updated on plan of care and expected duration. Pain level reassessed. Patient is alert, oriented x 3, equal unlabored respirations, skin warm/dry/pink. 10:32 Reassessment: Patient appears in no apparent distress at this time. Patient and/or hb family updated on plan of care and expected duration. Pain level reassessed. Patient is alert, oriented x 3, equal unlabored respirations, skin warm/dry/pink. Vital Signs: 09:05 BP 134 / 95; Pulse 86; Resp 15; Temp 98; Pulse Ox 100% ; Weight 78.47 kg; Height 5 ft. ll1 0 in. ; Pain 9/10; 09:05 Body Mass Index 33.79 (78.47 kg, 152.4 cm) ll1 09:05 Pain Scale: Adult ll1 ED Course: 09:03 Patient arrived in ED. ll1 09:05 Stacia Garcia PA-C is PHCP. sb4 09:05 Ted Poon MD is Attending Physician. sb4 09:06 Triage completed. ll1 09:06 Arm band placed on Patient placed in an exam room, on a stretcher. ll1 09:45 Janina Romero, MARTI is Primary Nurse. ll1 10:32 Patient has correct armband on for positive identification. Provided Education on: hb medications, follow up. 10:32 No provider procedures requiring assistance completed. Patient did not have IV access hb during this emergency room visit. Administered Medications: 09:26 Drug: Ketorolac IM 30 mg IM once {Note: pain 9/10 .} Route: IM; Site: right vastus ll1 lateralis; 10:33 Follow up: Response: No adverse reaction hb 09:27 Drug: Cyclobenzaprine PO 10 mg PO once Route: PO; ll1 10:33 Follow up: Response: No adverse reaction hb Medication: 09:30 VIS not applicable for this client. ll1 Outcome: 10:21 Discharge ordered by . sb4 10:32 Discharged to home ambulatory, hb 10:32 Condition: stable 10:32 Discharge instructions given to patient, Instructed on discharge instructions, follow up and referral plans. medication usage, Demonstrated understanding of instructions, follow-up care, medications, Prescriptions given X 3, 10:35 Patient left the ED. hb Addendum: 03/18/2024 14:26 Addendum: Culture Results: Positive urine culture. Bacteria is resistant to, has i w intermediate sensitivity, or is not tested against prescribed antibiotics. Report given to THERESA for further evaluation and then to modern and contemporary art curator for follow up with patient. Phone call Attempt #1 no answer when called, unable to leave voicemail. Signatures: Lucía Madsen RN RN Barbara Ruiz RN RN Janina Romero RN RN ll1 Stacia Garcia PA-C PAHeraclio sb4 Corrections: (The following items were deleted from the chart) 03/16 09:45 09:05 BP 134 / 95; Pulse 86bpm; Resp 15bpm; Pulse Ox 100%; 78.47 kg; Height 5 ft. 0 ll1 in.; BMI: 33.7; Pain 9/10, Adult; ll1
[2024-03-16 11:48] VITALS: BP 134/95; TEMP 98; O2SAT 100
== END 2024-03-16 10:35 | disposition home or self-care (01) ==
LOC: ER 08:59
DX: N39.0 Urinary tract infection, site not specified (principal); E11.65 Type 2 diabetes mellitus with hyperglycemia; I10 Essential (primary) hypertension
CPT/HCPCS: 81001; 81025; 82947; 87077; 87086; 87088; 87186; 96372; 99284

== ENCOUNTER 2024-03-20 09:08 | Emergency (ER) | payer OTHER ==
[2024-03-20] MEDS ORDERED: MUPIROCIN 2% OINT 22GM TUBE TOP ONE (09:40)
--- NOTE | 2024-03-20 09:51 | ER ---
Nurse's Notes [facility] Name: Lynette Topete Age: 28 yrs Sex: Female : 1995 Arrival Date: 03/20/2024 Time: 09:08 Bed 13 Private MD: Diagnosis: Folliculitis;Impetigo Presentation: 03/20 09:22 Chief complaint: Patient states: "I have a lump on the back of my head and it's been aa5 about 2 weeks now". Coronavirus screen: At this time, the client does not indicate any symptoms associated with coronavirus-19. Ebola Screen: Patient denies travel to an Ebola-affected area in the 21 days before illness onset. Initial Sepsis Screen: Does the patient meet any 2 criteria? No. Patient's initial sepsis screen is negative. Does the patient have a suspected source of infection? No. Patient's initial sepsis screen is negative. Risk Assessment: Do you want to hurt yourself or someone else? Patient reports no desire to harm self or others. Onset of symptoms was February 2024. 09:22 Method Of Arrival: Ambulatory aa5 09:22 Acuity: AICHA 4 aa5 Historical: - Allergies: 09:23 No Known Allergies; aa5 - PMHx: 09:23 diabetes mellitus; Hypertensive disorder; aa5 - Immunization history:: Adult Immunizations unknown. - Infectious Disease History:: Denies. - Social history:: Smoking status: Reported history of juuling and/or vaping. Screenin:[facility] ED Fall Risk Assessment (Adult) History of falling in the last 3 months, kc6 including since admission No falls in past 3 months (0 pts) Confusion or Disorientation No (0 pts) Intoxicated or Sedated No (0 pts) Impaired Gait No (0 pts) Mobility Assist Device Used No (0 pt) Altered Elimination No (0 pt) Score/Fall Risk Level 0 - 2 = Low Risk Oriented to surroundings. Abuse screen: Denies threats or abuse. Denies injuries from another. Nutritional screening: No deficits noted. Tuberculosis screening: No symptoms or risk factors identified. Assessment: 09:58 General: Appears in no apparent distress. comfortable, Behavior is calm, cooperative, kc6 appropriate for age. Pain: Denies pain. Neuro: Level of Consciousness is awake, alert, obeys commands, Oriented to person, place, time, situation, Appropriate for age. Cardiovascular: Capillary refill < 3 seconds. Respiratory: Airway is patent Trachea midline Respiratory effort is even, unlabored, Respiratory pattern is regular, symmetrical. GI: No signs and/or symptoms were reported involving the gastrointestinal system. : No signs and/or symptoms were reported regarding the genitourinary system. EENT: No signs and/or symptoms were reported regarding the EENT system. Derm: Skin is healthy with good turgor, Skin is pink, warm \\T\\ dry. Wound noted base of the skull Wound is open and scabbed over. Musculoskeletal: No signs and/or symptoms reported regarding the musculoskeletal system. Circulation, motion, and sensation intact. Capillary refill < 3 seconds, Range of motion: intact in all extremities. 10:09 Reassessment: Patient and/or family updated on plan of care and expected duration. Pain tm6 level reassessed. Patient is alert, oriented x 3, equal unlabored respirations, skin warm/dry/pink. Vital Signs: 09:22 BP 133 / 88; Pulse 73; Resp 18 S; Temp 98.2(TE); Pulse Ox 99% on R/A; Weight 78.47 kg aa5 (R); Height 5 ft. 0 in. (R); 10:08 BP 135 / 96; Pulse 69; Resp 19; Temp 98.2; Pulse Ox 100% ; MAP 107 mmHg; Pain 0/10; tm6 09:22 Body Mass Index 33.79 (78.47 kg, 152.4 cm) aa5 10:08 Pain Scale: Adult tm6 ED Course: 09:10 Patient arrived in ED. ra3 09:14 Ritu Ramirez, MARTI is Primary Nurse. kc6 09:16 Roro Schuler MD is Attending Physician. sd2 09:22 Arm band placed on. aa5 09:23 Triage completed. aa5 10:01 Patient has correct armband on for positive identification. Bed in low position. Call kc6 light in reach. Side rails up X 1. Pulse ox on. NIBP on. Pillow given. 10:01 Patient maintains SpO2 saturation greater than 95% on room air. kc6 10:09 Provided Education on: use of prescription meds. tm6 10:09 No provider procedures requiring assistance completed. Patient did not have IV access tm6 during this emergency room visit. Administered Medications: 09:58 Drug: Clindamycin PO 300 mg PO once Route: PO; kc6 10:10 Follow up: Response: No adverse reaction tm6 09:58 Drug: Mupirocin Topical Ointment 2 % 1 application Topical once Route: Topical; Site: kc6 scalp; 10:10 Follow up: Response: No adverse reaction tm6 Medication: 10:09 VIS not applicable for this client. tm6 Outcome: :51 Discharge ordered by . [email or web address] 10: Discharged to home ambulatory, tm6 10:09 Condition: stable 10:09 Discharge instructions given to patient, Instructed on discharge instructions, follow up and referral plans. medication usage, Demonstrated understanding of instructions, follow-up care, medications, Prescriptions given X 2, 10:09 Patient left the ED. tm6 Signatures: Stacy Castrejon, RN RN [email or web address] Roro Schuler MD MD sd2 Ritu Ramirez RN RN kc6 Mark Infante RN RN tm6 Cristin Valles 3
--- NOTE | 2024-03-20 09:51 | EDPHYS ---
Physician Documentation [facility] Name: Lynette Topete Age: 28 yrs Sex: Female : 1995 Arrival Date: 03/20/2024 Time: 09:08 Bed 13 Private MD: ED Physician Roro Schuler HPI: 03/20 09:35 This 28 yrs old Female presents to ER via Ambulatory with complaints of lump sd2 on back of head. 09:35 28 yo F presents with CC of bump to back of head with small amount of associated pain. sd2 Reports started as a pimple about 2 weeks ago. No fevers or vomiting. . Historical: - Allergies: 09:23 No Known Allergies; aa5 - PMHx: 09:23 diabetes mellitus; Hypertensive disorder; aa5 - Immunization history:: Adult Immunizations unknown. - Infectious Disease History:: Denies. - Social history:: Smoking status: Reported history of juuling and/or vaping. ROS: 09:35 Constitutional: Negative for fever, chills, and weight loss, Eyes: Negative for injury, sd2 pain, redness, and discharge, Neck: Negative for injury, pain, and swelling, Cardiovascular: Negative for chest pain, palpitations, and edema, Respiratory: Negative for shortness of breath, cough, wheezing. Abdomen/GI: Negative for abdominal pain, nausea, vomiting, diarrhea. 09:35 Skin: Positive for discoloration, erythema, pustules, Exam: 09:35 Constitutional: This is a well developed, well nourished patient who is awake, alert, sd2 and in no acute distress. 09:35 Head/Face: Normocephalic, atraumatic. Wound noted to posterior aspect of scalp approximately 3x2 cm with erythema and overlying pizano crusting consistent with cellulitis and impetigo. Eyes: EOMI, normal conjunctiva bilaterally Neck: Trachea midline, no thyromegaly or masses palpated, and no cervical lymphadenopathy. Supple, full range of motion without nuchal rigidity, or vertebral point tenderness. No Meningismus. Skin: Warm, dry with normal turgor. See head exam. Vital Signs: 09:22 BP 133 / 88; Pulse 73; Resp 18 S; Temp 98.2(TE); Pulse Ox 99% on R/A; Weight 78.47 kg aa5 (R); Height 5 ft. 0 in. (R); 10:08 BP 135 / 96; Pulse 69; Resp 19; Temp 98.2; Pulse Ox 100% ; MAP 107 mmHg; Pain 0/10; tm6 09:22 Body Mass Index 33.79 (78.47 kg, 152.4 cm) aa5 10:08 Pain Scale: Adult tm6 MDM: 09:16 Medical Screening Exam initiated sd2 09:35 Differential Diagnosis cellulitis, impetigo, doubt abscess among others. Data reviewed: sd2 vital signs, nurses notes. I considered the following discharge prescriptions or medication management in the emergency department Medications were administered in the Emergency Department. See MAR. Counseling: I had a detailed discussion with the patient and/or guardian regarding the historical points, exam findings, and any diagnostic results supporting the discharge/admit diagnosis, the need for outpatient follow up, to return to the emergency department if symptoms worsen or persist or if there are any questions or concerns that arise at home. ED course: Pt exam consistent with folliculitis and impetigo. Will treat with oral and topical abx. Pt afebrile with stable VS. Outpatient workup appropriate. Pt comfortable with plan for dc and outpatient follow up. Verbalizes understanding of strict return precautions. . Administered Medications: 09:58 Drug: Clindamycin PO 300 mg PO once Route: PO; kc6 10:10 Follow up: Response: No adverse reaction tm6 09:58 Drug: Mupirocin Topical Ointment 2 % 1 application Topical once Route: Topical; Site: kc6 scalp; 10:10 Follow up: Response: No adverse reaction tm6 Disposition Summary: 03/20/24 09:51 Discharge Ordered Problem: new sd2 Symptoms: are unchanged sd2 Condition: Stable sd2 Diagnosis - Folliculitis sd2 - Impetigo sd2 Followup: sd2 - With: Private Physician - When: 2 - 3 days - Reason: Recheck today's complaints, Continuance of care, Re-evaluation by your physician Discharge Instructions: - Discharge Summary Sheet sd2 - Folliculitis sd2 - Impetigo, Adult sd2 Forms: - Medication Reconciliation Form sd2 - Antibiotic Education sd2 - Prescription Opioid Use sd2 - Patient Portal Instructions sd2 - Leadership Thank You Letter sd2 Prescriptions: - mupirocin 2 % Topical Ointment Kit - apply 1 application TOPICAL route 3 times per day for 10 days; 30 application; sd2 Refills: 0, Product Selection Permitted - Clindamycin HCl 300 mg Oral Capsule - take 1 capsule ORAL route every 6 hours for 10 days; 40 capsule; Refills: 0, sd2 Product Selection Permitted Signatures: Stacy Castrejon RN RN aa5 Roro Schuler MD MD sd2 Ritu Ramirez RN RN kc6 Mark Infante RN tm6 Corrections: (The following items were deleted from the chart) 09:49 09:35 ED course: Pt exam consistent with folliculitis and impetigo. . sd2 sd2
[2024-03-20 20:25] VITALS: TEMP 98.2
[2024-03-20 20:29] VITALS: BP 135/96; O2SAT 100
== END 2024-03-20 10:09 | disposition home or self-care (01) ==
LOC: ER 09:08
DX: L73.9 Follicular disorder, unspecified (principal); L01.00 Impetigo, unspecified
CPT/HCPCS: 99284

== ENCOUNTER 2024-03-30 19:52 | Emergency (ER) | payer OTHER ==
[2024-03-30 23:12] LABS: Absolute Basophils 0.1 K/uL (0-0.5); Absolute Eosinophils 0.1 K/uL (0-0.5); Absolute Monocytes 0.7 K/uL (0.1-1.3); Absolute Neutrophil 4.9 K/uL (1.8-8.0); Basophils % 1.3 % (0-1.3); Eosinophils % 1.3 % (0-4.4); Hematocrit 42.9 % (36.0-45.0); Hemoglobin 14.6 g/dL (12.0-15.0); Lymphocytes % 40.7 % (15.3-44.8); MCH 28.1 pg (27.0-35.0); MCV 82.6 fL (80-100); MPV 11.5 fL (7.6-11.3); Monocytes % 6.7 % (3.3-12.3); Nucleated Red Blood Cells % 0.4 % (0-0); Platelets 173 thou/uL (152-406); RBC Red Blood Cell Count 5.19 M/uL (3.86-4.86); Red Cell Distribution Width 12.6 % (12.1-15.2)
[2024-03-30 23:35] LABS: Albumin 3.4 g/dL (3.4-5.0); Albumin/Globulin Ratio 0.8 (1.1-1.8); Anion Gap 9.1 mEq/L (5.0-15.0); Bilirubin Total 0.3 mg/dL (0.2-1.0); Globulin 4.4 g/dL (2.3-3.5); Magnesium 1.9 mg/dL (1.6-2.4); Potassium 3.1 mEq/L (3.5-5.1); Protein, Total 7.8 g/dL (6.4-8.2)
[2024-03-31 01:51] LABS: Specific Gravity > 1.030 (1.005-1.030)
[2024-03-31 01:52] LABS: Specific Gravity > 1.030 (1.005-1.030); Sqamous Epithelial 20-50 /HPF (None Seen); Urine Bacteria <20 /HPF (<20); Urine Bilirubin NEGATIVE (Negative); Urine Blood Negative (Negative); Urine Clarity Turbid (Clear); Urine Color Light-Yellow (Yellow); Urine Culture Reflex Order NOT NEEDED; Urine Glucose 4+ (Over) (Negative); Urine Ketones NEGATIVE (Negative); Urine Microscopic Reflex YN ORDER UMIC; Urine Mucus Slight /HPF (None Seen); Urine Nitrite NEGATIVE (Negative); Urine Protein NEGATIVE (Negative); Urine RBC <5 /HPF (None Seen); Urine Urobilinogen Normal (Normal); Urine WBC <5 /HPF (<5); Urine pH 5.5 (5.0-7.0)
[2024-03-31] MEDS ORDERED: INSULIN REGULAR (HUMAN) 100 UNIT/ML ONE (02:40)
--- NOTE | 2024-03-31 02:49 | RAD REPORT ---
CLINICAL HISTORY: Elevated liver enzymes. COMPARISON: None. TECHNIQUE: US ABDOMEN LIMITED 03/31/2024 12:59 AM SOFTWARE SECURITY CONSULTANT FINDINGS: Liver is slightly echogenic. Common bile duct measures 3 mm. Portal vein is patent. Spleen measures 1 0.1 cm. Gallbladder is contracted. IMPRESSION: No acute findings. Electronically signed by: Glenn Mims MD 03/31/2024 02:09 AM SOFTWARE SECURITY CONSULTANT RP Due to temporary technical issues with the [employer] reporting system, reports are being signed by the in-house radiologist without review as a courtesy to ensure prompt reporting the interpreting radiologist is fully responsible for the content of the report. Transcribed Date/Time: 03/31/2024 2:49 AM
--- NOTE | 2024-03-31 02:56 | EDPHYS ---
Physician Documentation [facility] Name: Lynette Topete Age: 28 yrs Sex: Female : 1995 Arrival Date: 03/30/2024 Time: 19:52 Bed 6 Private MD: ED Physician Kenneth Nielsen HPI: 03/30 21:25 This 28 yrs old Female presents to ER via Ambulatory with complaints of cp Diarrhea. 21:25 The patient presents to the emergency department with diarrhea, that is intermittent. cp 21:25 Onset: The symptoms/episode began/occurred 2 week(s) ago. cp 21:25 Possible causes: unknown. cp 21:25 Associated signs and symptoms: Pertinent negatives: constipation, fever, GI bleeding, cp vomiting. Severity of symptoms: in the emergency department the symptoms are unchanged despite home interventions. Historical: - Allergies: 21:16 No Known Allergies; cm10 - PMHx: 21:16 diabetes mellitus; Hypertensive disorder; cm10 - PSHx: 21:16 None; cm10 - Immunization history:: Adult Immunizations up to date. - Infectious Disease History:: Denies. - Social history:: Smoking status: unknown. ROS: 21:30 Constitutional: Negative for body aches, chills, fever, poor PO intake, cp 21:30 Eyes: Negative for injury, pain, redness, and discharge, cp 21:30 Respiratory: Negative for cough, shortness of breath, wheezing, 21:30 Abdomen/GI: Positive for diarrhea, abdominal cramps, 21:30 ENT: Negative for drainage from ear(s), ear pain, sore throat, difficulty swallowing, cp difficulty handling secretions, 21:30 Cardiovascular: Negative for chest pain, edema, palpitations, 21:30 Neuro: Negative for altered mental status, dizziness, headache, cp 21:30 All other systems are negative, Exam: 21:33 Constitutional: The patient appears in no acute distress, alert, awake, non-toxic, well cp developed, well nourished, overweight 21:33 Head/Face: Normocephalic, atraumatic. cp 21:33 Eyes: Periorbital structures: appear normal, Conjunctiva: normal, no exudate, no injection, Sclera: no appreciated abnormality, Lids and lashes: appear normal, bilaterally, 21:33 ENT: External ear(s): are unremarkable, Nose: is normal, Mouth: Lips: moist, Oral mucosa: moist, Posterior pharynx: is normal, airway is patent, no erythema, no exudate, 21:33 Chest/axilla: Inspection: normal, 21:33 Cardiovascular: Rate: normal, Rhythm: regular, 21:33 Respiratory: the patient does not display signs of respiratory distress, Respirations: normal, no use of accessory muscles, no retractions, labored breathing, is not present, Breath sounds: are clear throughout, no decreased breath sounds, no stridor, no wheezing, 21:33 Abdomen/GI: Inspection: abdomen appears normal, Bowel sounds: active, all quadrants, Palpation: soft, in all quadrants, mild abdominal tenderness, in all quadrants, Vital Signs: 21:15 BP 135 / 90; Pulse 77; Resp 18; Temp 97.1; Pulse Ox 100% on R/A; Weight 78.47 kg; cm10 Height 5 ft. 0 in. ; Pain 0/10; 03/31 01:24 BP 131 / 89; Pulse 71; Resp 17 S; Pulse Ox 100% on R/A; lg3 03:22 BP 127 / 88; Pulse 77; Resp 17 S; Temp 97.4(O); Pulse Ox 100% on R/A; lg3 03/30 21:15 Body Mass Index 33.79 (78.47 kg, 152.4 cm) cm10 03/30 21:15 Pain Scale: Adult cm10 MDM: 03/30 21:19 Medical Screening Exam initiated cp 03/31 00:00 Differential diagnosis: gastritis, pancreatitis, appendicitis, diverticulitis, viral cp gastroenteritis, gastroenteritis. 02:53 ED course: CLINICAL HISTORY: Elevated liver enzymes. COMPARISON: None. TECHNIQUE: US sp4 ABDOMEN LIMITED 03/31/2024 12:59 AM HOBBING PRESS OPERATOR FINDINGS: Liver is slightly echogenic. Common bile duct measures 3 mm. Portal vein is patent. Spleen measures 10.1 cm. Gallbladder is contracted. IMPRESSION: No acute findings. Electronically signed by: Glenn Mims MD 03/31/2024. 03:39 Data reviewed: vital signs, nurses notes, old medical records, lab test result(s), sp4 radiologic studies, CT scan, ultrasound. ED course: EXAM DESCRIPTION: CTABDOMEN PELVIS WITH IV CONTRAST 03/31/2024 2:36 AM HOBBING PRESS OPERATOR CLINICAL HISTORY: 28 years, Female, Diarrhea, elevated liver enzymes. COMPARISON: US Abdomen 03/31/2024 1:13:41 AM. PROCEDURE: Contrast-enhanced images of the abdomen and pelvis were performed from the lung bases to the ischial tuberosities after the administration of IV contrast. In addition multiplanar reformats in the coronal and sagittal plane were obtained and reviewed. An individualized dose optimization technique, Automated Exposure Control, was utilized for the performed procedure. FINDINGS: Lung bases: The lung bases demonstrate to be clear. Liver: The liver demonstrated presence of decreased attenuation corresponding to fatty infiltration. Gallbladder: The gallbladder demonstrate to be normal. Adrenal glands: The adrenal glands demonstrate to be normal. Pancreas: The pancreas demonstrate to be normal. Spleen: The spleen demonstrate to be within normal limits. Kidneys: The kidneys demonstrate normal uptake of contrast media. There is no evidence for nephrolithiasis and/or hydronephrosis. GI: Grossly the unopacified stomach, small bowel and large bowel demonstrate to be within normal limits. No evidence for bowel dilatation and/or free air. The appendix is normal. The left-sided colon demonstrate to be decompressed with no gross abnormalities. : The urinary bladder demonstrate to be partially distended with no gross abnormalities. Genitalia: The uterus demonstrate to be within normal limits. There is a left adnexal cyst measuring 4 x 3.8 cm on image 71. Abdominal aorta: The aorta demonstrate to be within normal limits. Retroperitoneum:There is no retroperitoneal lymphadenopathy. There is no evidence for ascites and/or abnormal fluid collections. Bones: The bony structures demonstrate to be within normal limits. No evidence for compression deformity and/or significant skeletal lesions. Soft tissues: There is a small umbilical hernia containing omentum. IMPRESSION: No evidence for bowel dilatation and/or free air. 4 cm left adnexal cystic lesion. No follow-up imaging recommended. Fatty infiltration of the liver. Small umbilical hernia containing omentum. . 03/30 21:20 Order name: CBC with Diff; Complete Time: 00:57 cp 03/31 00:57 Interpretation: Normal except: RBC 5.19; MPV 11.5. cp 03/30 21:20 Order name: CMP; Complete Time: 00:57 cp 03/31 00:57 Interpretation: Normal except: NA 133; K 3.1; GLUC 370; BUN 5; AST 84; ALT 122; ALK cp 125; GLOB 4.4; A/G 0.8. 03/30 21:20 Order name: Lipase; Complete Time: 00:57 cp 03/30 21:20 Order name: Test, Urine; Complete Time: 02:21 cp 03/30 21:20 Order name: Urinalysis w/ reflexes; Complete Time: 02:21 cp 03/31 02:21 Interpretation: Normal except: UCLA Turbid; Urine SG > 1.030; UGLUC 4+ (Over); SQEPI cp 20-50. 03/30 21:20 Order name: Magnesium; Complete Time: 00:57 cp 03/30 21:20 Order name: Fecal Leukocyte Stain cp 03/30 21:20 Order name: Rotavirus Antigen cp 03/30 21:20 Order name: Stool Culture cp 03/30 21:20 Order name: CDIFF cp 03/31 00:59 Order name: CT Abd/Pelvis - IV Contrast Only cp 03/31 00:59 Order name: US Abdomen Limited; Complete Time: 02:52 cp 03/30 21:20 Order name: IV Saline Lock; Complete Time: 22:57 cp 03/30 21:20 Order name: Labs collected and sent; Complete Time: 22:57 cp Administered Medications: 02:52 Drug: Insulin Regular Human Sub-Q 10 units Sub-Q once {Co-Signature: lg3 (Radha Antonio RN).} Route: Sub-Q; Site: left upper arm; 03:23 Follow up: Response: No adverse reaction lg3 Disposition: 02:54 Co-signature as Attending Physician, Kenneth Nielsen MD I agree with the assessment sp4 and plan of care. I reviewed the patient's care provided by Advanced Practice Provider \T\ agree w/ the diagnosis \T\ care plan. I personally saw the pt \T\ performed a substantive portion of the visit, incldng all aspects of the (History/Exam/Medical Decision Making). Disposition Summary: 03/31/24 02:54 Discharge Ordered Notes: Location: Home sp4 Problem: new sp4 Symptoms: have improved sp4 Condition: Stable sp4 Diagnosis - Diarrhea, unspecified sp4 - Acute Gastroenteritis, Diabetes Mellitus Type II with hyperglycemia sp4 Followup: sp4 - With: Private Physician - When: 7 - 10 days - Reason: Recheck today's complaints Discharge Instructions: - Discharge Summary Sheet sp4 - Diarrhea, Adult, [id number] sp4 Forms: - Patient Portal Instructions sp4 Prescriptions: - Lomotil 2.5-0.025 mg Oral Tablet - take 1 tablet ORAL route every 6 hours As needed; 20 tablet; Refills: 0, sp4 Product Selection Permitted Signatures: Dispatcher [employer] EDMS Miquel Richards PA PA cp Potepalov, Sergey, MD MD sp4 Tabby Arriaga RN RN cm10 Aiden Mckeon RN RN bm8 Radha Antonio RN lg3 Radha Antonio RN lg3
--- NOTE | 2024-03-31 02:56 | ER ---
Nurse's Notes [facility] Name: Lynette Topete Age: 28 yrs Sex: Female : 1995 Arrival Date: 03/30/2024 Time: 19:52 Bed 6 Private MD: Diagnosis: Diarrhea, unspecified;Acute Gastroenteritis, Diabetes Mellitus Type II with hyperglycemia Presentation: 03/30 21:15 Chief complaint: Patient states: Diarrhea onset 2 weeks ago. Pt states that she was cm10 told to start taking Imodium by PCP and has not started it. Pt also complaining of right leg pain. Coronavirus screen: Client denies travel out of the [place] in the last 14 days. Ebola Screen: Patient denies travel to an Ebola-affected area in the 21 days before illness onset. No symptoms or risks identified at this time. Initial Sepsis Screen: Does the patient meet any 2 criteria? No. Patient's initial sepsis screen is negative. Does the patient have a suspected source of infection? No. Patient's initial sepsis screen is negative. Risk Assessment: Do you want to hurt yourself or someone else? Patient reports no desire to harm self or others. Onset of symptoms was March 30, 2024. 21:15 Method Of Arrival: Ambulatory cm10 21:15 Acuity: AICHA 3 cm10 Triage Assessment: 21:17 General: Appears in no apparent distress. comfortable, Behavior is calm, cooperative. cm10 Neuro: No deficits noted. Level of Consciousness is awake, alert, obeys commands, Oriented to person, place, time, situation, Appropriate for age. Respiratory: No deficits noted. Airway is patent Respiratory effort is even, unlabored, Respiratory pattern is regular, symmetrical. GI: Reports diarrhea. Historical: - Allergies: 21:16 No Known Allergies; cm10 - PMHx: 21:16 diabetes mellitus; Hypertensive disorder; cm10 - PSHx: 21:16 None; cm10 - Immunization history:: Adult Immunizations up to date. - Infectious Disease History:: Denies. - Social history:: Smoking status: unknown. Screenin:54 [facility] ED Fall Risk Assessment (Adult) History of falling in the last 3 months, lg3 including since admission No falls in past 3 months (0 pts) Confusion or Disorientation No (0 pts) Intoxicated or Sedated No (0 pts) Impaired Gait No (0 pts) Mobility Assist Device Used No (0 pt) Altered Elimination No (0 pt) Score/Fall Risk Level 0 - 2 = Low Risk Oriented to surroundings, Maintained a safe environment, Educated pt \T\ family on fall prevention, incl call for assistance when getting out of bed, Assessed \T\ reinforced patient's understanding of fall precautions. Abuse screen: Denies threats or abuse. Denies injuries from another. Nutritional screening: No deficits noted. Tuberculosis screening: No symptoms or risk factors identified. Assessment: 22:54 General: Appears in no apparent distress. comfortable, Behavior is calm, cooperative. lg3 Pain: Denies pain. Neuro: No deficits noted. Ro Agitation-Sedation Scale (RASS): 0 - Alert and Calm Level of Consciousness is awake, alert, obeys commands, Oriented to person, place, time, situation. Cardiovascular: No deficits noted. Denies chest pain, shortness of breath, Capillary refill < 3 seconds Clubbing of nail beds is absent JVD is absent Patient's skin is warm and dry. Respiratory: No deficits noted. Airway is patent Respiratory effort is even, unlabored, Respiratory pattern is regular, symmetrical. GI: No deficits noted. Abdomen is round non-distended, Abd is soft and non tender X 4 quads. Reports diarrhea. : No signs and/or symptoms were reported regarding the genitourinary system. EENT: No deficits noted. No signs and/or symptoms were reported regarding the EENT system. Derm: No deficits noted. No signs and/or symptoms reported regarding the dermatologic system. Skin is intact, is healthy with good turgor, Skin is dry, Skin is normal, Skin temperature is warm. Musculoskeletal: No deficits noted. No signs and/or symptoms reported regarding the musculoskeletal system. Circulation, motion, and sensation intact. Range of motion: intact in all extremities. 03/31 00:40 Reassessment: Patient appears in no apparent distress at this time. No changes from lg3 previously documented assessment. Patient and/or family updated on plan of care and expected duration. Pain level reassessed. Patient is alert, oriented x 3, equal unlabored respirations, skin warm/dry/pink. 03:22 Reassessment: Patient appears in no apparent distress at this time. No changes from lg3 previously documented assessment. Patient and/or family updated on plan of care and expected duration. Pain level reassessed. Patient is alert, oriented x 3, equal unlabored respirations, skin warm/dry/pink. Vital Signs: 03/30 21:15 BP 135 / 90; Pulse 77; Resp 18; Temp 97.1; Pulse Ox 100% on R/A; Weight 78.47 kg; cm10 Height 5 ft. 0 in. ; Pain 0/10; 03/31 01:24 BP 131 / 89; Pulse 71; Resp 17 S; Pulse Ox 100% on R/A; lg3 03:22 BP 127 / 88; Pulse 77; Resp 17 S; Temp 97.4(O); Pulse Ox 100% on R/A; lg3 03/30 21:15 Body Mass Index 33.79 (78.47 kg, 152.4 cm) cm10 03/30 21:15 Pain Scale: Adult cm10 ED Course: 03/30 19:54 Patient arrived in ED. mr 20:32 Miquel Richards PA is PHCP. cp 20:32 Kenneth Nielsen MD is Attending Physician. cp 21:16 Triage completed. cm10 21:17 Arm band placed on right wrist. Patient placed in waiting room. cm10 22:54 Radha Antonio, RN is Primary Nurse. lg3 22:54 Patient has correct armband on for positive identification. Placed in gown. Bed in low lg3 position. Call light in reach. Side rails up X 1. Client placed on continuous cardiac and pulse oximetry monitoring. NIBP monitoring applied. Door closed. Noise minimized. Warm blanket given. Pillow given. 22:54 Initial lab(s) drawn, by ED staff, sent to lab. lg3 22:56 Inserted saline lock: 20 gauge in right antecubital area, using aseptic technique. rv1 Blood collected. Flushed with 10 mL NS. 22:57 CBC with Diff Sent. rv1 22:57 CMP Sent. rv1 22:57 Lipase Sent. rv1 03/31 00:50 CDIFF Sent. rv1 00:50 Fecal Leukocyte Stain Sent. rv1 00:50 Ova And Parasites Sent. rv1 00:50 Rotavirus Antigen Sent. rv1 00:50 Stool Culture Sent. rv1 00:50 Test, Urine Sent. rv1 00:50 Urinalysis w/ reflexes Sent. rv1 01:34 US Abdomen Limited In Process Unspecified. EDMS 02:16 CT Abd/Pelvis - IV Contrast Only In Process Unspecified. EDMS 03:22 No provider procedures requiring assistance completed. IV discontinued, intact, lg3 bleeding controlled, No redness/swelling at site. Pressure dressing applied. Administered Medications: 02:52 Drug: Insulin Regular Human Sub-Q 10 units Sub-Q once {Co-Signature: lg3 (Radha Antonio RN).} Route: Sub-Q; Site: left upper arm; 03:23 Follow up: Response: No adverse reaction lg3 Medication: 03/30 22:54 VIS not applicable for this client. lg3 Outcome: 03/31 02:54 Discharge ordered by MD. good 03:22 Discharged to home ambulatory, lg3 03:22 Condition: stable 03:22 Discharge instructions given to patient, Instructed on discharge instructions, follow up and referral plans. medication usage, Demonstrated understanding of instructions, follow-up care, medications, Prescriptions given X 1, 03:24 Patient left the ED. lg3 Signatures: Dispatcher [employer] EDMS Lin Stevens, Reg Reg mr Miquel Richards, PA PA cp Radha Antonio, RN RN lg3 Tahmina Michaels rv1 Kenneth Nielsen MD MD sp4 Tabby Arriaga, RN RN cm10 Aiden Mckeon, MARTI RN bm8 Radha Antonio RN lg3
[2024-03-31 03:28] VITALS: O2SAT 100
[2024-03-31 03:30] VITALS: BP 127/88; TEMP 97.4
--- NOTE | 2024-03-31 03:46 | RAD REPORT ---
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 COMPARISON: US Abdomen 03/31/2024 1:13:41 AM. PROCEDURE: Contrast-enhanced images of the abdomen and pelvis were performed from the lung bases to the ischial tuberosities after the administration of IV contrast. In addition multiplanar reformats in the coronal and sagittal plane were obtained and reviewed. An individualized dose optimization technique, Automated Exposure Control, was utilized for the perfo rmed procedure. FINDINGS: Lung bases: The lung bases demonstrate to be clear. Liver: The liver demonstrated presence of decreased attenuation corresponding to fatty infiltration. Gallbladder: The gallbladder demonstrate to be normal. Adrenal glands: The adrenal glands demonstrate to be normal. Pancreas: The pancreas demonstrate to be normal. Spleen: The spleen demonstrate to be within normal limits. Kidneys: The kidneys demonstrate normal uptake of contrast media. There is no evidence for nephroli thiasis and/or hydronephrosis. GI: Grossly the unopacified stomach, small bowel and large bowel demonstrate to be within normal limi ts. No evidence for bowel dilatation and/or free air. The appendix is normal. The left-sided colon demonstrate to be decompressed with no gross abnormalities. : The urinary bladder demonstrate to be partially distended with no gross abnormalities. Genitalia: The uterus demonstrate to be within normal limits. There is a left adnexal cyst measuring 4 x 3.8 cm on image 71. Abdominal aorta: The aorta demonstrate to be within normal limits. Retroperitoneum: There is no retroperitoneal lymphadenopathy. There is no evidence for ascites and/or abnormal fluid collections. Bones: The bony structures demonstrate to be within normal limits. No evidence for compression deform ity and/or significant skeletal lesions. Soft tissues: There is a small umbilical hernia containing omentum. IMPRESSION: No evidence for bowel dilatation and/or free air. 4 cm left adnexal cystic lesion. No follow-up imaging recommended. Fatty infiltration of the liver. Small umbilical hernia containing omentum. Electronically signed by: Zaire Dash MD 03/31/2024 02:57 AM SERVICE DELIVERY ANALYST Due to temporary technical issues with the PACS/[employer] reporting system, reports are being casi d by the in-house radiologist without review as a courtesy to ensure prompt reporting the interpreting radiologist is fully responsible for the content of the report. Transcribed Date/Time: 03/31/2024 3:46 AM
[2024-03-31 04:11] LABS: C.diff Antigen/Toxin Ag neg : Tox neg (NEG : NEG); CDIFF INTERNAL NEG CONTROL White Background (WHITE BKGD); STOOL CONSISTENCY Formed/Solid (soft)
== END 2024-03-31 03:24 | disposition home or self-care (01) ==
LOC: ER 19:52
DX: K52.9 Noninfective gastroenteritis and colitis, unspecified (principal); E11.65 Type 2 diabetes mellitus with hyperglycemia
CPT/HCPCS: 87045; 85025; 81001; 36415; 83735; 89055; 81025; 87046; 87324; 83690; 80053; 87425; 74177; 76705; Q9967

== ENCOUNTER 2024-05-16 06:09 | Emergency (ER) | payer OTHER ==
--- NOTE | 2024-05-16 06:35 | EDPHYS ---
Physician Documentation [facility] Name: Lynette Topete Age: 28 yrs Sex: Female : 1995 Arrival Date: 05/16/2024 Time: 06:09 Bed 7 Private MD: ED Physician Kenneth Nielsen HPI: 05/16 06:21 This 28 yrs old Female presents to ER via Unassigned with complaints of sp4 Vaginal Itching, Vaginal Pain. 20:53 Patient presents with acute vaginal itching starting 7 days ago. Patient suspects yeast sp4 infection. 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 - Infectious Disease History:: Denies. - Social history:: Smoking status: Reported history of juuling and/or vaping. - Family history:: not pertinent. ROS: 20:53 Constitutional: Negative for fever, chills, and weight loss, positive for vaginal sp4 itching and discomfort 20:53 All other systems are negative, Exam: 20:53 Constitutional: This is a well developed, well nourished patient who is awake, alert, sp4 and in no acute distress. Head/Face: Normocephalic, atraumatic. Eyes: Pupils equal round and reactive to light, extra-ocular motions intact. Lids and lashes normal. Conjunctiva and sclera are not injected. Cornea within normal limits. Periorbital areas with no swelling, redness, or edema. ENT: Nares patent. No nasal discharge, no septal abnormalities noted. Tympanic membranes are normal and external auditory canals are clear. Oropharynx with no redness, swelling, or masses, exudates, or evidence of obstruction, uvula midline. Mucous membranes moist. Neck: Trachea midline, no thyromegaly or masses palpated, and no cervical lymphadenopathy. Supple, full range of motion without nuchal rigidity, or vertebral point tenderness. Chest/axilla: Normal chest wall appearance and motion. Nontender with no deformity. No lesions are appreciated. Cardiovascular: Regular rate and rhythm with a normal S1 and S2. No gallops, murmurs, or rubs. Normal PMI, no JVD. No pulse deficits. Respiratory: Lungs have equal breath sounds bilaterally, clear to auscultation and percussion. No rales, rhonchi or wheezes noted. No increased work of breathing, no retractions or nasal flaring. Abdomen/GI: Soft, with normal bowel sounds. No distension or tympany. No guarding or rebound. No evidence of tenderness throughout. Back: No spinal tenderness. No costovertebral tenderness. Female : Normal external genitalia. 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 speculum exam was not done . No sign of ulcerations no sign of bacterial type vaginal discharge. Skin: Warm, dry with normal turgor. Normal color with no rashes, no lesions, and no evidence of cellulitis. MS/ Extremity: Pulses equal, no cyanosis. Neurovascular intact. Full, normal range of motion. Neuro: Awake and alert, GCS 15, oriented to person, place, time, and situation. Cranial nerves II-XII grossly intact. Motor strength 5/5 in all extremities. Sensory grossly intact. Vital Signs: 06:29 BP 145 / 97; Pulse 80; Resp 18; Temp 97.9; Pulse Ox 100% on R/A; Weight 78.93 kg; al5 Height 5 ft. 1 in. ; 06:29 Body Mass Index 32.88 (78.93 kg, 154.94 cm) al5 Milad Coma Score: 20:53 Eye Response: spontaneous(4). Motor Response: obeys commands(6). Verbal Response: sp4 oriented(5). Total: 15. MDM: 06:35 Medical Screening Exam initiated sp4 20:53 Differential diagnosis: dysmenorrhea, menometrorrhagia, urinary tract infection, sp4 vaginosis. Data reviewed: vital signs, nurses notes. ED course: Examination reveals presence of obvious candidiasis. Patient will be prescribed Diflucan for the next 10 days. Administered Medications: 06:56 Drug: Fluconazole PO 200 mg PO once Route: PO; al5 06:56 Follow up: Response: No adverse reaction al5 06:56 Follow up: Response: No adverse reaction; Medication administered at discharge. al5 Disposition Summary: 05/16/24 06:35 Discharge Ordered Notes: Location: Home sp4 Problem: new sp4 Symptoms: have improved sp4 Condition: Stable sp4 Diagnosis - Candidiasis of vulva and vagina sp4 Followup: sp4 - With: Private Physician - When: 7 - 10 days - Reason: Recheck today's complaints Discharge Instructions: - Discharge Summary Sheet sp4 - Vaginal Yeast Infection, Adult sp4 Forms: - Patient Portal Instructions sp4 Prescriptions: - Fluconazole 200 mg Oral tablet - take 1 tablet ORAL route once daily for 10 days; 10 tablet; Refills: 0, Product sp4 Selection Permitted Signatures: Kenneth Nielsen MD MD sp4 Val Wang RN RN al5
--- NOTE | 2024-05-16 06:35 | ER ---
Nurse's Notes [facility] Name: Lynette Topete Age: 28 yrs Sex: Female : 1995 Arrival Date: 05/16/2024 Time: 06:09 Bed 7 Private MD: Diagnosis: Candidiasis of vulva and vagina Presentation: 05/16 06:29 Chief complaint: Patient states: c/o vaginal pain and itching since January. states al5 she has tried otc medications and creams along with cranberry juice but has not helped. also states that the other day she was [place] around at the park and fell on the turf, c/o R knee pain and has abrasion to area, wants it checked out by the doctor. Coronavirus screen: At this time, the client does not indicate any symptoms associated with coronavirus-19. Ebola Screen: No symptoms or risks identified at this time. Initial Sepsis Screen: Does the patient meet any 2 criteria? No. Patient's initial sepsis screen is negative. Does the patient have a suspected source of infection? No. Patient's initial sepsis screen is negative. Risk Assessment: Do you want to hurt yourself or someone else? Patient reports no desire to harm self or others. Onset of symptoms was January 2024. 06:29 Acuity: AICHA 5 al5 06:29 Method Of Arrival: Ambulatory al5 Triage Assessment: 06:31 General: Appears in no apparent distress. Behavior is calm, cooperative. Pain: al5 Complains of pain in groin. EENT: No signs and/or symptoms were reported regarding the EENT system. Neuro: Level of Consciousness is awake, alert, obeys commands, Oriented to person, place, time, situation. Cardiovascular: Capillary refill < 3 seconds Patient's skin is warm and dry. Respiratory: Airway is patent Respiratory effort is even, unlabored, Respiratory pattern is regular, symmetrical. GI: No signs and/or symptoms were reported involving the gastrointestinal system. : Reports vaginal itching, since january. Derm: Skin is intact, is healthy with good turgor, Skin is pink, warm \T\ dry. normal, Wound noted right knee Wound is abrasion with no active bleeding. Musculoskeletal: No signs and/or symptoms reported regarding the musculoskeletal system. 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 - Infectious Disease History:: Denies. - Social history:: Smoking status: Reported history of juuling and/or vaping. - Family history:: not pertinent. Screenin:33 [facility] ED Fall Risk Assessment (Adult) History of falling in the last 3 months, al5 including since admission Yes- single mechanical fall (1 pt) Confusion or Disorientation No (0 pts) Intoxicated or Sedated No (0 pts) Impaired Gait No (0 pts) Mobility Assist Device Used No (0 pt) Altered Elimination No (0 pt) Score/Fall Risk Level 0 - 2 = Low Risk Oriented to surroundings, Maintained a safe environment, Hourly rounding (assess needs \T\ fall precautionary measures) done. Abuse screen: Denies threats or abuse. Denies injuries from another. Nutritional screening: No deficits noted. Tuberculosis screening: No symptoms or risk factors identified. Assessment: 06:32 Reassessment: see triage assessment. al5 Vital Signs: 06:29 BP 145 / 97; Pulse 80; Resp 18; Temp 97.9; Pulse Ox 100% on R/A; Weight 78.93 kg; al5 Height 5 ft. 1 in. ; 06:29 Body Mass Index 32.88 (78.93 kg, 154.94 cm) al5 Milad Coma Score: 20:53 Eye Response: spontaneous(4). Motor Response: obeys commands(6). Verbal Response: sp4 oriented(5). Total: 15. ED Course: 06:12 Patient arrived in ED. gm2 06:21 Kenneth Nielsen MD is Attending Physician. sp4 06:28 Val Wang, MARTI is Primary Nurse. al5 06:31 Triage completed. al5 06:32 Arm band placed on right wrist. Patient placed in the treatment room, on a stretcher. al5 06:33 Patient has correct armband on for positive identification. Bed in low position. Call al5 light in reach. Side rails up X 1. Provided Education on: discharge follow up, medications. 06:33 Assist provider with pelvic exam: Performed by Kenneth Nielsen MD Patient tolerated al5 well. Patient did not have IV access during this emergency room visit. Administered Medications: 06:56 Drug: Fluconazole PO 200 mg PO once Route: PO; al5 06:56 Follow up: Response: No adverse reaction al5 06:56 Follow up: Response: No adverse reaction; Medication administered at discharge. al5 Medication: 06:33 VIS not applicable for this client. al5 Outcome: 06:35 Discharge ordered by . sp4 06:56 Discharged to home ambulatory, with family, al5 06:56 Condition: good 06:56 Discharge instructions given to patient, Instructed on discharge instructions, follow up and referral plans. medication usage, Demonstrated understanding of instructions, follow-up care, medications, :56 Patient left the ED. al5 Signatures: Kenneth Nielsen MD MD sp4 Nataliya Palacio [facility] Val Wang RN RN al5 Corrections: (The following items were deleted from the chart) 06:38 06:33 [facility] ED Fall Risk Assessment (Adult) History of falling in the last 3 months, al5 including since admission No falls in past 3 months (0 pts) Confusion or Disorientation No (0 pts) Intoxicated or Sedated No (0 pts) Impaired Gait No (0 pts) Mobility Assist Device Used No (0 pt) Altered Elimination No (0 pt) Score/Fall Risk Level 0 - 2 = Low Risk Oriented to surroundings, Maintained a safe environment, Hourly rounding (assess needs \T\ fall precautionary measures) done, al5 06:39 06:29 Chief complaint: Patient states: c/o vaginal pain and itching since January. al5 states she has tried otc medications and creams along with cranberry juice but has not helped al5 06:39 06:31 Derm: Skin is intact, is healthy with good turgor, Skin is pink, warm \T\ dry. al5 normal, al5
[2024-05-16] MEDS ORDERED: FLUCONAZOLE 100 MG TAB ONE (06:47)
[2024-05-16 07:02] VITALS: BP 145/97; TEMP 97.9; O2SAT 100
== END 2024-05-16 06:56 | disposition home or self-care (01) ==
LOC: ER 06:09
DX: B37.31 Acute candidiasis of vulva and vagina (principal); E11.9 Type 2 diabetes mellitus without complications; I10 Essential (primary) hypertension; F17.290 Nicotine dependence, other tobacco product, uncomplicated
CPT/HCPCS: 99283

== ENCOUNTER 2025-01-08 22:29 | Emergency (ER) | payer OTHER ==
--- OUTSIDE RECORDS SUMMARY | 2025-01-08 22:43 | XMS REPORT | Continuity of Care Document ---
Author Name Unknown Address [address] [facility] [address] [place] [address] [facility] Address [address] [facility] [address] [place] [address] Care Team Providers Care Plant And Maintenance Technician Name Role Phone Pcp, Patient Does Not Have A Primary Care Physic aman MIRLANDE CRUZ Attending Clinician Mirlande Mehta CNM Attending Clinician [phone]- [phone] Doctor Unassigned, [place] Attending Clinician U navailcarmelo Still, Saq-Iahia-Ws/High Attending Clinician Unav ailLaura Dobbs Attending Clinician + [phone] Lab, Ang-Rmparrish Attending Clinician Unavailable FAINA MILLER Attending Clinician UnavailMANISH Chau Attending Clinician Unavailable OBLucas-JASONGURJIT Attending Clinician Unavailab marycruz HUDSON GURJIT Attending Clinician Unavailab SIMI De Leon Attending Clinician Unavailab SIMI De Leon Attending Clinician UnavailMirlande West CNM Attending Clinician [phone]- [phone] BIBIANA HIRSCH Attending Clinician Unavail able BIBIANA HIRSCH Attending Clinician Unavail able Risk, Lsl-Pihwr-Of/High Attending Clinician Unav ailable Lab, Ang-Rmchp Attending Clinician Unavailable John Paul Welch DNP Attending Clinician + [phone] JOHN PAUL WELCH Attending Clinician Unavail able CUONG NDIAYE Attending Clinician Unavail able MAURICE BISHOP Attending Clinician Unavailable Maurice Bishop DO Attending Clinician [phone], Adc Lab Attending Clinician Unavailable Mundo Haji NP Attending Clinician [phone] Doctor Unassigned, [place] Attending Clinician U Simon Bear MD Attending Clinician [phone] Elayne Lenz LCSW Attending Clinician [phone] Narendra MARQUIS, Mary Lou Garcia Attending Clinician Unava ilable MUNDO HAJI Attending Clinician Unavailab CORRINA Vu Attending Clinician Unavailable Corrina Cortés Attending Clinician [phone] JESSICA PEDERSEN Attending Clinician Unavailable Rogelio WIN Attending Clinician Unavailable Rogelio Crisostomo Attending Clinician [phone] Jessica Pedersen MD Attending Clinician [phone] Irving Matos MD Attending Clinician [phone] YVES MANRIQUEZ Attending Clinician Unavailable DEINSE CONNER III Attending Clinician Unavaila JESSICA Hardy Admitting Clinician Unavailable FAINA MILLER Admitting Clinician Unavailab RUI Zhu Admitting Clinician Unavailable Jessica Pedersen MD Admitting Clinician [phone] Payers Payer Name Policy Type Policy Number Effective Date Expirati on Date Source MEDICAID PENDING PENDING 2022 00:00:00 [facility] [id number] 2023 00:00:00 [facility] Maria G/ WOODY LOBATO [id number] 2024 00:00:00 [place] [id number] 2023 00:00:00 2023 00:00:00 HTW-RMCHP [id number] 2023 00:00:00 Problems Condition Name Condition Details Condition Category Status Onset Date Resolution Date Last Treatment Date Treating Clinician Comments Source Decreased platelet count Decreased platelet count Disease Active 12-09 00:00: 00 [facility] Previous delivery affecting , antepartum Previous delivery affecting , antepartum Disease Active 12-08 00:00: 00 [facility] Desires (vaginal after ) trial Desires (vaginal after ) trial Disease Active 12-08 00:00: 00 [facility] History of bipolar disorder History of bipolar disorder Disease Active 12-08 00:00: 00 [facility] Bipolar disease during Bipolar disease during Disease Active 12-08 00:00: 00 [facility] Incomplete miscarriag e with blood clot Incomplete miscarriag e with blood clot Disease Active 2021-05 00:00: 00 [facility] History of depression History of depression Disease Active 3- 00:00: 00 [facility] Engages in vaping Engages in vaping Disease Resolve d 12-08 00:00: 00 2024-12-18 00:00:00 2024-12-18 09:30:53 [facility] Acute viral syndrome Acute viral syndrome Disease Resolve d - 00:00: 00 2024-12-08 00:00:00 2024-12-08 08:53:06 [facility] Hematuria, unspecifie d type Hematuria, unspecifie d type Disease Resolve d 3- 00:00: 00 2024-12-08 00:00:00 2024-12-08 08:53:07 [facility] Left hip pain Left hip pain Disease Resolve d 3- 00:00: 00 2024-12-08 00:00:00 2024-12-08 08:53:07 [facility] Glycosuria Glycosuria Disease Resolve d 3- 00:00: 00 2024-12-08 00:00:00 2024-12-08 08:53:09 [facility] Hyperglyce gayle Hyperglyce gayle Disease Resolve d 3-21 00:00: 00 2024-12-08 00:00:00 2024-12-08 08:53:10 [facility] Strain of left hip, initial encounter Strain of left hip, initial encounter Disease Resolve d 3- 00:00: 00 2024-12-08 00:00:00 2024-12-08 08:53:11 [facility] Rubella non-immune status, antepartum Rubella non-immune status, antepartum Disease Active 12-05 00:00: 00 2024-12-08 00:00:00 2024-12-08 08:53:02 [facility] Uncontroll ed type 2 diabetes mellitus with hyperglyce gayle Uncontroll ed type 2 diabetes mellitus with hyperglyce gayle Disease Resolve d 2021-05 00:00: 00 2024-12-08 00:00:00 2024-12-08 08:53:48 [facility] Right ovarian cyst Right ovarian cyst Disease Resolve d 4 00:00: 00 2024-12-08 00:00:00 2024-12-08 08:52:58 Overview: Formattin g of this note might be different from the original. Noted on USG, risk for torsion as per USG [facility] Supervisio n of high risk , antepartum Supervisio n of high risk , antepartum Disease Resolve d 2-19 00:00: 00 2024-12-08 00:00:00 2024-12-08 08:52:59 [facility] Anemia of mother in , condition Anemia of mother in , condition Disease Resolve d 2015-05 0-24 00:00: 00 2023-12-05 00:00:00 2023-12-05 19:13:30 [facility] Routine follow-up Routine follow-up Disease Resolve d 2015-05 0-24 00:00: 00 2023-12-05 00:00:00 2023-12-05 19:13:21 [facility] Gestationa l diabetes mellitus, antepartum Gestationa l diabetes mellitus, antepartum Disease Resolve d 8- 00:00: 00 2023-12-05 00:00:00 2023-12-05 19:13:25 Overview: Formattin g of this note might be different from the original. Failed 1h- 220mg/dl 01/25 HgA1C= 7.4 [facility] Incomplete miscarriag e with blood clot Incomplete miscarriag e with blood clot Disease Resolve d 2021-05 00:00: 00 2022-05-07 00:00:00 2022-05-07 17:08:43 [facility] Diabetes mellitus affecting in first trimester Diabetes mellitus affecting in first trimester Disease Resolve d 2021-05 00:00: 00 2022-05-07 00:00:00 2022-05-07 17:09:10 [facility] 38 weeks gestation of 38 weeks gestation of Disease Resolve d 2015-05 0-02 00:00: 00 2016-03-19 00:00:00 2016-03-19 14:20:02 [facility] Chlamydia infection affecting , antepartum Chlamydia infection affecting , antepartum Disease Resolve d 3-01 00:00: 00 2016-03-19 00:00:00 2021-12-10 00:39:43 [facility] Obesity affecting Obesity affecting Disease Active - 00:00: 00 2016-03-19 00:00:00 2016-03-19 14:20:10 [facility] Tobacco smoking affecting Tobacco smoking affecting Disease Resolve d 2- 00:00: 00 2016-03-19 00:00:00 2021-12-10 00:39:36 [facility] Back pain affecting Back pain affecting Disease Resolve d 2 00:00: 00 2016-03-19 00:00:00 2016-03-19 14:20:04 [facility] with abnormal glucose tolerance test (GTT) with abnormal glucose tolerance test (GTT) Disease Resolve d 2-20 00:00: 00 2016-01-25 00:00:00 2021-12-10 00:39:36 [facility] Diarrhea Diarrhea Disease Resolve d 7 00:00: 00 2016-01-11 00:00:00 2016-01-11 14:47:20 [facility] Allergies, Adverse Reactions, Alerts Allergy Name Allergy Type Status Severity Reaction(s) Onset Date Inactive Date Treating Clinician Comments Source NO KNOWN ALLERGIE S Drug Class Active [facility] Social History Social Habit Start Date Stop Date Quantity Comments Source ASSERTION 2024-11-11 00:00:00 [facility] History of tobacco use Cigarette Smoker [facility] Alcoholic beverage intake 2025-01-07 00:00:00 2025-01-07 00:00:00 Ex-drinker (finding) [facility] Tobacco use and exposure 2024-12-08 00:00:00 2024-12-08 00:00:00 Former smokeless tobacco user [facility] History of Social function 2024-12-08 00:00:00 2024-12-08 00:00:00 [facility] Tobacco Comment 2024-12-08 00:00:00 2024-12-08 00:00:00 Vapes daily- stopped 1 week ago [facility] Alcohol intake 2023-05-14 00:00:00 2023-05-14 00:00:00 Lifetime non-drinker (finding) [facility] Exposure to SARS-CoV-2 (event) 2022-04-27 00:00:00 2022-05-07 15:24:00 Not sure [facility] Sex assigned at 1995 00:00:00 1995 00:00:00 [facility] Smoking Status Start Date Stop Date Source Tobacco smoking consumption unknown [facility] Ex-smoker 2024-12-08 00:00:00 2024-12-08 00:00:00 [facility] Smokes tobacco daily 2022-05-07 00:00:00 [facility] Medications Ordered Medication Name Filled Medication Name Start Date Stop Date Current Medication? Ordering Clinician Indication Dosage Frequency Signature (SIG) Comments Components Source insulin NPH (HUMULIN N NPH U-100 INSULIN) 100 unit/mL injection 12-31 00:00: 00 04-01 05:59 :00 Yes [id number] inject 36 Units under the skin daily before breakfast AND 22 Units at bedtime. [facility] insulin regular human (HUMULIN R REGULAR U-100 INSULN) 100 unit/mL injection 12-31 00:00: 00 03-02 04:59 :00 Yes [id number] inject 20 Units under the skin daily with breakfast AND 20 Units before evening meal. [facility] Insulin Syringe-Nee dle U-100 1/2 mL 27 gauge x 1/2" Syrg 12-11 00:00: 00 Yes [id number] Give insulin 3 times a day [facility] insulin regular human (HUMULIN R REGULAR U-100 INSULN) 100 unit/mL injection 12-11 00:00: 00 12-31 00:00 :00 No [id number] Inject 14 units SQ 30 minutes before breakfast and 10 units 30 minutes before dinner [facility] insulin NPH (HUMULIN N NPH U-100 INSULIN) 100 unit/mL injection 12-11 00:00: 00 12-31 00:00 :00 No [id number] Inject 28 units SQ 30 minutes before breakfast and 10 units at bedtime [facility] Nitrofurant oin&Nit. Macrocryst (MACROBID) 100 mg capsule 12-11 00:00: 00 12-22 04:59 :00 Yes [id number] 100mg Take 1 capsule by mouth in the morning and 1 capsule in the evening. Do all this for 10 days. [facility] lancets (FREESTYLE LANCETS) 28 gauge Misc 12-08 00:00: 00 Yes [id number] Take blood sugar 4 times a day [facility] Blood-Gluco se Meter (FREESTYLE LITE METER) Kit 12-08 00:00: 00 Yes [id number] Take blood sugar 4 times a day [facility] blood sugar diagnostic (FREESTYLE LITE STRIPS) strip 12-08 00:00: 00 Yes [id number] Take blood sugar 4 times a day [facility] cyclobenzap rine 10 mg tablet 3-21 00:00: 00 12-08 00:00 :00 No [id number] 10mg Take 1 tablet by mouth every 8 (eight) hours as needed for Muscle Spasms. [facility] lancets 28 gauge [facility] 12-16 00:00: 00 Yes [id number] Check blood glucose 4 times a day. AM Fasting and 2 hours postprandi al x3. [facility] Blood-Gluco se Meter Kit 12-16 00:00: 00 12-08 00:00 :00 No [id number] Check blood glucose 4 times a day. AM Fasting and 2 hours postprandi al x3. [facility] Blood Sugar Diagnostic, Disc Strp 12-16 00:00: 00 12-08 00:00 :00 No [id number] Check blood glucose 4 times a day. AM Fasting and 2 hours postprandi al x3. [facility] lancets 28 gauge [facility] 12-16 00:00: 00 12-08 00:00 :00 No [id number] Check blood glucose 4 times a day. AM Fasting and 2 hours postprandi al x3. [facility] ampicillin 500 mg capsule 12-05 00:00: 00 12-16 04:59 :00 No [id number] 500mg Take 1 capsule by mouth every 6 (six) hours for 10 days. [facility] proMETHazin e 12.5 mg tablet 12-04 00:00: 00 12-08 00:00 :00 No [id number] 12.5mg Take 1 tablet by mouth every 6 (six) hours as needed for Nausea and Vomiting (N/V). [facility] 12-04 00:00: 00 12-16 00:00 :00 No [id number] Check blood glucose 4 times a day. AM Fasting and 2 hours postprandi al x3. [facility] Blood-Gluco se Meter Kit 12-04 00:00: 00 12-16 00:00 :00 No [id number] Check blood glucose 4 times a day. AM Fasting and 2 hours postprandi al x3. [facility] Blood Sugar Diagnostic, Disc Strp 12-04 00:00: 00 12-16 00:00 :00 No [id number] Check blood glucose 4 times a day. AM Fasting and 2 hours postprandi al x3. [facility] carboxymeth ylcellulose sodium ophthalmic drops 07-20 00:00: 00 12-04 00:00 :00 No [id number] 2[drp] Place 2 Drops in left eye 4 (four) times daily. [facility] methylPREDN ISolone (MEDROL, DARYL,) 4 mg tablets 07-20 00:00: 00 12-04 00:00 :00 No [id number] Take by mouth SEE-INSTRU CTIONS. follow package directions [facility] Eye Patches (OPTICLUDE EYE PATCH) Misc 07-20 00:00: 00 12-04 00:00 :00 No [id number] Use as directed [facility] acyclovir 800 mg tablet 07-20 00:00: 00 07-27 05:59 :00 No [id number] 800mg Take 1 tablet by mouth 5 (five) times daily for 7 days. [facility] blood sugar diagnostic strip 2022-05 00:00: 00 12-04 00:00 :00 No [id number] Check blood sugar 2 times a day. E11.9. Brand per insurance. [facility] glipiZIDE 5 mg tablet 2022-05 2 00:00: 00 12-08 00:00 :00 No [id number] 5mg Take 1 tablet by mouth in the morning. [facility] semaglutide (OZEMPIC) 1 mg/dose (2 mg/1.5 mL) Ij 2022-05 00:00: 00 12-08 00:00 :00 No [id number] 1mg inject 1 mg under the skin weekly. [facility] Blood-Gluco se Meter Kit 2022-05 00:00: 00 12-04 00:00 :00 No [id number] Check sugars 3 times a day. Dx Code E11.9. Brand per insurance. [facility] metformin ER 500 mg 24 hr tablet 2022-05 00:00: 00 08-18 04:59 :00 No [id number] Take 1 tablet by mouth daily for 3 days, THEN 1 tablet 2 (two) times daily for 3 days, THEN 2 tablets 2 (two) times daily for 90 days. Take 1 tab daily [facility] semaglutide (OZEMPIC) 0.25 mg or 0.5 mg (2 mg/3 mL) [facility] 2022-05 00:00: 00 06-14 05:59 :00 No [id number] .5mg inject 0.5 mg under the skin weekly for 30 days. [facility] semaglutide (OZEMPIC) 0.25 mg or 0.5 mg (2 mg/3 mL) [facility] 2022-05 00:00: 00 06-14 05:59 :00 No [id number] .25mg inject 0.25 mg under the skin weekly for 30 days. [facility] mupirocin 2 % ointment 2022-05 00:00: 00 04-26 05:59 :00 No [id number] Apply to area(s) 3 (three) times daily for 3 days. [facility] gabapentin 300 mg capsule 2022-05 00:00: 00 12-04 00:00 :00 No [id number] 300mg Take 1 capsule by mouth in the morning and 1 capsule at noon and 1 capsule in the evening. [facility] Lancets Misc 2023-1 0-16 00:00: 00 12-04 00:00 :00 No [id number] Check sugars 2 times a day. Dx Code E11.9. Brand per insurance. [facility] blood sugar diagnostic strip 2022-05 00:00: 00 05-17 00:00 :00 No [id number] Check blood sugar 2 times a day. E11.9. Brand per insurance. [facility] metFORMIN 1,000 mg tablet 2022-05 00:00: 00 05-14 00:00 :00 No [id number] 1000mg Take 1 tablet by mouth in the morning and 1 tablet in the evening. Take with meals. [facility] Blood-Gluco se Meter Kit 2022-05 00:00: 00 05-14 00:00 :00 No [id number] Check sugars 2 times a day. Dx. Code E11.9 Brand per Insurance [facility] semaglutide (OZEMPIC) 0.25 mg or 0.5 mg(2 mg/1.5 mL) PnIj 2022-05 00:00: 00 05-11 05:59 :00 No [id number] .25mg inject 0.25 mg under the skin weekly for 60 days. [facility] ketorolac (TORADOL) injection 15 mg 02-20 04:30: 00 02-20 03:48 :00 No 15mg 15 mg, Slow IV Push, ONCE, 1 dose, On Sat02/19/23 at 2330, LENORA [facility] ondansetron (ZOFRAN (PF)) injection 4 mg 02-20 03:45: 00 02-20 03:48 :00 No 4mg 4 mg, Slow IV Push, ONCE, 1 dose, On Sat02/19/23 at 2245, LENORA [facility] cefdinir (OMNICEF) capsule 300 mg 02-20 03:40: 00 02-20 03:48 :00 No 300mg 300 mg, Oral, ONCE, 1 dose, On Sat02/19/23 at 2245, LENORA
Re ason for Anti-Infec tive: Documented Infection< br>Documen dionte Infection Site: Urine
D uration of Therapy: Other (see Comments) [facility] NaCl 0.9% (NS) IV infusion 1,000 mL 02-20 03:36: 00 02-20 05:09 :00 No 1000mL at 999 mL/hr, Intravenou s, ONCE, 1 dose, On Sat02/19/23 at 2245, LENORA [facility] fluconazole 150 mg tablet 02-20 00:00: 00 02-21 04:59 :00 No [id number] 150mg Take 1 tablet by mouth once now for 1 dose. [facility] ondansetron 4 mg disintegrat ing tablet 02-19 00:00: 00 03-11 00:00 :00 No [id number] 4mg Take 1 tablet by mouth every 8 (eight) hours as needed for Nausea and Vomiting (N/V). [facility] metFORMIN 500 mg tablet 02-19 00:00: 00 03-11 00:00 :00 No [id number] 500mg Take 1 tablet by mouth in the morning and 1 tablet in the evening. Do all this for 30 days. [facility] cefdinir 300 mg capsule 02-19 00:00: 00 02-27 04:59 :00 No [id number] 300mg Take 1 capsule by mouth in the morning and 1 capsule in the evening. Do all this for 7 days. [facility] iopamidol (ISOVUE 370-500 mL) injection 100 mL 11-10 09:30: 00 11-10 09:30 :00 No [id number] 100mL 100 mL, Intravenou s, ONCE, 1 dose, On Sat11/10/22 at 0430, Routine [facility] NaCl 0.9% (NS) bolus infusion 1,000 mL 11-10 08:00: 00 11-10 08:00 :00 No 1000mL at 999 mL/hr, 1,000 mL, IV Infusion, ONCE, 1 dose, On 11/10/22 at 0300, STAT [facility] ondansetron (ZOFRAN (PF)) injection 4 mg 11-10 08:00: 00 11-10 07:04 :00 No 4mg 4 mg, Slow IV Push, ONCE, 1 dose, On 11/10/22 at 0300, LENORA [facility] dicyclomine 20 mg tablet 11-10 00:00: 00 03-11 00:00 :00 No [id number] 20mg Take 1 tablet by mouth every 6 (six) hours as needed for Abdominal pain. [facility] ondansetron (ZOFRAN) 4 mg tablet 11-10 00:00: 00 03-11 00:00 :00 No [id number] 4mg Take 1 tablet by mouth every 8 (eight) hours as needed for Nausea and Vomiting (N/V). [facility] NaCl 0.9% (NS) IV infusion 1,000 mL 2021-05 15:15: 00 Yes 1000mL at 150 mL/hr, IV Infusion, CONTINUOUS , Starting on Sat04/17/22 at 0915, Until Discontinu ed, Routine [facility] Sliding Scale Insulin-Reg ular + Fsbg Testing 2021-05 14:45: 00 Yes Subcutaneo us, AC+HS, First dose (after last modificati on) on Sat04/17/22 at 0845, Until Discontinu ed, Routine [facility] ondansetron (ZOFRAN (PF)) injection 4 mg 2021-05 09:53: 37 Yes 4mg 4 mg, Slow IV Push, Q8HPRN, Nausea and Vomiting (N/V), Starting on Sat04/17/22 at 0353
Do ses of ondansetro n 16 mg and above need to be administer ed via IV piggyback. For Dose >=24mg ECG monitoring is advisable.
[facility] FENTanyl PF (SUBLIMAZE (PF)) injection 25 mcg 2021-05 09:52: 32 Yes 25ug 25 mcg, Slow IV Push, Q1HPRN, Starting on Sat04/17/22 at 0352, Until Discontinu ed, Routine, Pain (scale 7-10) [facility] D5W 0.9% NaCl (NS) IV infusion 1,000 mL 2021-05 09:52: 00 04-17 14:09 :37 No 1000mL at 150 mL/hr, 1,000 mL, IV Infusion, CONTINUOUS , Starting on Sat04/17/22 at 0400, Until Sat04/17/22 at 0809, Routine [facility] morpHINE (4 mg/mL) injection 4 mg 2021-05 09:45: 00 04-17 08:45 :00 No 4mg 4 mg, Slow IV Push, ONCE, 1 dose, On Sat04/17/22 at 0345, STAT [facility] NaCl 0.9% (NS) bolus infusion 1,000 mL 2021-05 07:30: 00 04-17 08:14 :00 No 1000mL at 999 mL/hr, 1,000 mL, IV Piggyback, ONCE, 1 dose, On Sat04/17/22 at 0130, STAT [facility] cefTRIAXone (ROCEPHIN) 1,000 mg in NaCl 0.9% (NS) 50 mL MINI-BAG 2021-05 07:30: 00 04-17 07:56 :00 No 1000mg 1,000 mg, IV Piggyback, ONCE, 1 dose, On Sat04/17/22 at 0130, Administer over 30 Minutes, 50 mL
Reas on for Anti-Infec tive: Empiric Therapy for Suspected Infection< br>Empiric Therapy Site: Urine
D uration of therapy: 72 hours [facility] ondansetron (ZOFRAN (PF)) injection 8 mg 2021-05 07:15: 00 04-17 07:08 :00 No 8mg 8 mg, Slow IV Push, ONCE, 1 dose, On Sat04/17/22 at 0115, LENORA [facility] NaCl 0.9% (NS) bolus infusion 1,000 mL 2021-05 06:15: 00 04-17 06:40 :00 No 1000mL at 999 mL/hr, 1,000 mL, IV Piggyback, ONCE, 1 dose, On Sat04/17/22 at 0015, STAT [facility] proMETHazin e (PHENERGAN) 25 mg in NaCl 0.9% (NS) 50 mL IV piggyback 2021-05 05:30: 00 04-17 05:53 :00 No 25mg 25 mg, IV Piggyback, ONCE, 1 dose, On Sat04/16/22 at 2330, LENORA [facility] metFORMIN 500 mg tablet 2021-05 00:00: 00 03-11 00:00 :00 No [id number] 1000mg Take 2 tablets by mouth in the morning and 2 tablets in the evening. Take with meals. [facility] sulfamethox azole-trime thoprim 800-160 mg per tablet 11-30 00:00: 00 03-11 00:00 :00 No 1{tbl} Take 1 tablet by mouth every 12 (twelve) hours. [facility] traMADOL (ULTRAM) 50 mg tablet 11-30 00:00: 00 03-11 00:00 :00 No 50mg Take 1 tablet by mouth every 6 (six) hours as needed for Pain (scale 4-6). [facility] bacitracin- polymyxin B 500-10,000 unit/gram topical ointment 11-30 00:00: 00 03-11 00:00 :00 No Apply to area(s) 2 (two) times daily. [facility] ascorbic acid, vitamin C, (VITAMIN C) 500 mg tablet 2015-05 00:00: 00 03-11 00:00 :00 No 500mg Take 1 tablet by mouth daily. [facility] vitamin w/FA (PRENATABS RX) tablet 2015-05 00:00: 00 03-11 00:00 :00 No 1{tbl} Take 1 tablet by mouth daily. [facility] ferrous sulfate 325 mg (65 mg iron) tablet 2015-05 00:00: 00 03-11 00:00 :00 No 325mg Take 1 tablet by mouth 2 (two) times daily. [facility] acetaminoph en-codeine (TYLENOL #3) 300-30 mg tablet 2015-05 00:00: 00 03-11 00:00 :00 No 1{tbl} Take 1-2 [...] hours for all acetaminop hen containing products. [facility] ibuprofen (MOTRIN) 600 mg tablet 2015-05 00:00: 00 03-11 00:00 :00 No 600mg Take 1 tablet by mouth every 6 (six) hours as needed for Pain (scale 4-6). Take with food or milk. [facility] Immunizations Ordered Immunization Name Filled Immunization Name Date Status Comments Source Influenza Virus Vaccine Quad IM, Preserv and ABX Free 6 MO-64 YRS (FLUCELVAX) 2023-03-11 00:00:00 Completed [facility] SARS-COV-2 COVID-19 VACCINE - (MODERNA) 2021-02-24 00:00:00 Completed [facility] Influenza Virus Vaccine Quad .5 mL IM 6+ MO (FLUZONE/FLULAVAL/FL UARIX) 2021-02-24 00:00:00 Completed Influenza Virus Vaccine Quad IM 3+ YRS 2016-02-23 00:00:00 Completed [facility] TDAP 2015-12-30 00:00:00 Completed Influenza Virus Vaccine 2015-03-27 00:00:00 Completed [facility] Influenza, Live, Trivalent, Intranasal (FLUMIST) 2015-03-27 00:00:00 Completed HPV 2011-04-05 00:00:00 Completed Meningococcal Polysaccharide (groups A, C, Y and W-135) conjugate vaccine (MCV4P) 2011-04-05 00:00:00 Completed TDAP 2011-04-05 00:00:00 Completed Varicella (varivax)(chicken pox) 2011-04-05 00:00:00 Completed DTaP, Unspecified Formulation 2001-11-19 00:00:00 Completed HEPATITIS A 2001-11-19 00:00:00 Completed MMR 2001-11-19 00:00:00 Completed IPV 2001-11-19 00:00:00 Completed HEPATITIS A 2001-02-05 00:00:00 Completed Pneumococcal 7 Conjugate, PCV7 (Prevnar7) 2001-02-05 00:00:00 Completed Varicella (varivax)(chicken pox) 2001-02-05 00:00:00 Completed DTaP, Unspecified Formulation 1998-06-07 00:00:00 Completed HIB 4 Dose Schedule 1998-06-07 00:00:00 Completed MMR 1998-06-07 00:00:00 Completed Poliovirus, Live, Oral, Trivalent 1998-06-07 00:00:00 Completed DTaP, Unspecified Formulation 1997 00:00:00 Completed Hep B, Adol or Pedi Dosage 1997 00:00:00 Completed Haemophilus influenzae type b vaccine, conjugate unspecified formulation 1997 00:00:00 Completed DTaP, Unspecified Formulation 1997 00:00:00 Completed Haemophilus influenzae type b vaccine, conjugate unspecified formulation 1997 00:00:00 Completed Hib-HbOC 1997 00:00:00 Completed IPV 1997 00:00:00 Completed DTaP, Unspecified Formulation 1997 00:00:00 Completed Hep B, Adol or Pedi Dosage 1997 00:00:00 Completed Haemophilus influenzae type b vaccine, conjugate unspecified formulation 1997 00:00:00 Completed Hib-HbOC 1997 00:00:00 Completed IPV 1997 00:00:00 Completed Hep B, Adol or Pedi Dosage 1997 00:00:00 Completed Influenza Virus Vaccine Unknown Completed [facility] SARS-COV-2 COVID-19 VACCINE - (MODERNA) Unknown [facility] Influ[facility] Vaccine Nasal Unknown Completed [facility] Hib-HbOC Unknown Completed [facility] HIB 4 Dose Schedule Unknown Completed [facility] HPV Unknown Completed [facility] Meningococcal Polysaccharide (groups A, C, Y and W-135) conjugate vaccine (MCV4P) Unknown Completed [facility] Pneumococcal 7 Conjugate, PCV7 (Prevnar7) Unknown Completed [facility] Poliovirus, Live, Oral, Trivalent Unknown Completed [facility] HIB 4 Dose Schedule Unknown Completed [facility] Influenza Virus Vaccine Quad IM, Preserv and ABX Free 6 MO-64 YRS (FLUCELVAX) Unknown Completed [facility] HPV Unknown Completed [facility] TDAP Unknown Completed [facility] Influenza Virus Vaccine Quad IM 3+ YRS Unknown Completed [facility] DTaP, Unspecified Formulation Unknown Completed [facility] Meningococcal Polysaccharide (groups A, C, Y and W-135) conjugate vaccine (MCV4P) Unknown Completed [facility] HEPATITIS A Unknown Completed [facility] Hep B, Adol or Pedi Dosage Unknown Completed [facility] MMR Unknown Completed [facility] Haemophilus influenzae type b vaccine, conjugate unspecified formulation Unknown Completed [facility] Hib-HbOC Unknown Completed [facility] MMR Unknown Completed [facility] IPV Unknown Completed [facility] Varicella (varivax)(chicken pox) Unknown Completed [facility] Pneumococcal 7 Conjugate, PCV7 (Prevnar7) Unknown Completed [facility] IPV Unknown Completed [facility] TDAP Unknown Completed [facility] Influenza Virus Vaccine Quad IM 3+ YRS Unknown Completed [facility] DTaP, Unspecified Formulation Unknown Completed [facility] HEPATITIS A Unknown Completed [facility] Hep B, Adol or Pedi Dosage Unknown Completed [facility] Haemophilus influenzae type b vaccine, conjugate unspecified formulation Unknown Completed [facility] Hib-HbOC Unknown Completed [facility] MMR Unknown Completed [facility] IPV Unknown Completed [facility] Poliovirus, Live, Oral, Trivalent Unknown Completed [facility] Varicella (varivax)(chicken pox) Unknown Completed [facility] Influenza Virus Vaccine Unknown Completed [facility] Varicella (varivax)(chicken pox) Unknown Completed [facility] SARS-COV-2 COVID-19 VACCINE - (MODERNA) Unknown Completed [facility] Influenza Virus Vaccine Nasal Unknown Completed [facility] Influenza Virus Vaccine Quad IM, Preserv and ABX Free 6 MO-64 YRS (FLUCELVAX) Unknown Completed [facility] HIB 4 Dose Schedule Unknown Completed [facility] HPV Unknown Completed [facility] Meningococcal Polysaccharide (groups A, C, Y and W-135) conjugate vaccine (MCV4P) Unknown Completed [facility] Pneumococcal 7 Conjugate, PCV7 (Prevnar7) Unknown Completed [facility] Poliovirus, Live, Oral, Trivalent Unknown Completed [facility] Influenza Virus Vaccine Quad IM, Preserv and ABX Free 6 MO-64 YRS (FLUCELVAX) Unknown Completed [facility] Influenza Virus Vaccine Unknown Completed [facility] SARS-COV-2 COVID-19 VACCINE - (MODERNA) Unknown Completed [facility] Influenza Virus Vaccine Nasal Unknown Completed [facility] HIB 4 Dose Schedule Unknown Completed [facility] HPV Unknown Completed [facility] Meningococcal Polysaccharide (groups A, C, Y and W-135) conjugate vaccine (MCV4P) Unknown Completed [facility] Pneumococcal 7 Conjugate, PCV7 (Prevnar7) Unknown Completed [facility] Poliovirus, Live, Oral, Trivalent Unknown Completed [facility] Influenza Virus Vaccine Quad IM, Preserv and ABX Free 6 MO-64 YRS (FLUCELVAX) Unknown Completed [facility] TDAP Unknown Completed [facility] Influenza Virus Vaccine Quad IM 3+ YRS Unknown Completed [facility] DTaP, Unspecified Formulation Unknown Completed [facility] HEPATITIS A Unknown Completed [facility] Hep B, Adol or Pedi Dosage Unknown Completed [facility] Haemophilus influenzae type b vaccine, conjugate unspecified formulation Unknown Completed [facility] Hib-HbOC Unknown Completed [facility] MMR Unknown Completed [facility] IPV Unknown Completed [facility] Varicella (varivax)(chicken pox) Unknown Completed [facility] TDAP Unknown Completed [facility] Influenza Virus Vaccine Quad IM 3+ YRS Unknown Completed [facility] DTaP, Unspecified Formulation Unknown Completed [facility] HEPATITIS A Unknown Completed [facility] Hep B, Adol or Pedi Dosage Unknown Completed [facility] Haemophilus influenzae type b vaccine, conjugate unspecified formulation Unknown Completed [facility] Hib-HbOC Unknown Completed [facility] MMR Unknown Completed [facility] IPV Unknown Completed [facility] Varicella (varivax)(chicken pox) Unknown Completed [facility] TDAP Unknown Completed [facility] Influenza Virus Vaccine Quad IM 3+ YRS Unknown Completed [facility] DTaP, Unspecified Formulation Unknown Completed [facility] HEPATITIS A Unknown Completed [facility] Hep B, Adol or Pedi Dosage Unknown Completed [facility] Haemophilus influenzae type b vaccine, conjugate unspecified formulation Unknown Completed [facility] Hib-HbOC Unknown Completed [facility] MMR Unknown Completed [facility] IPV Unknown Completed [facility] Varicella (varivax)(chicken pox) Unknown Completed [facility] Influenza Virus Vaccine Unknown Completed [facility] TDAP Unknown Completed [facility] Influenza Virus Vaccine Quad IM 3+ YRS Unknown Completed [facility] SARS-COV-2 COVID-19 VACCINE - (MODERNA) Unknown Completed [facility] DTaP, Unspecified Formulation Unknown Completed [facility] Influenza Virus Vaccine Nasal Unknown Completed [facility] HEPATITIS A Unknown Completed [facility] Hep B, Adol or Pedi Dosage Unknown Completed [facility] Haemophilus influenzae type b vaccine, conjugate unspecified formulation Unknown Completed [facility] Hib-HbOC Unknown Completed [facility] HIB 4 Dose Schedule Unknown Completed [facility] HPV Unknown Completed [facility] Meningococcal Polysaccharide (groups A, C, Y and W-135) conjugate vaccine (MCV4P) Unknown Completed [facility] MMR Unknown Completed [facility] Pneumococcal 7 Conjugate, PCV7 (Prevnar7) Unknown Completed [facility] IPV Unknown Completed [facility] Poliovirus, Live, Oral, Trivalent Unknown Completed [facility] Varicella (varivax)(chicken pox) Unknown Completed [facility] Influenza Virus Vaccine Quad IM, Preserv and ABX Free 6 MO-64 YRS (FLUCELVAX) Unknown Completed [facility] Influenza Virus Vaccine Unknown Completed [facility] TDAP Unknown Completed [facility] Influenza Virus Vaccine Quad IM 3+ YRS Unknown Completed [facility] SARS-COV-2 COVID-19 VACCINE - (MODERNA) Unknown Completed [facility] DTaP, Unspecified Formulation Unknown Completed [facility] Influenza Virus Vaccine Nasal Unknown Completed [facility] HEPATITIS A Unknown Completed [facility] Hep B, Adol or Pedi Dosage Unknown Completed [facility] Haemophilus influenzae type b vaccine, conjugate unspecified formulation Unknown Completed [facility] Hib-HbOC Unknown Completed [facility] HIB 4 Dose Schedule Unknown Completed [facility] HPV Unknown Completed [facility] Meningococcal Polysaccharide (groups A, C, Y and W-135) conjugate vaccine (MCV4P) Unknown Completed [facility] MMR Unknown Completed [facility] Pneumococcal 7 Conjugate, PCV7 (Prevnar7) Unknown Completed [facility] IPV Unknown Completed [facility] Poliovirus, Live, Oral, Trivalent Unknown Completed [facility] Varicella (varivax)(chicken pox) Unknown Completed [facility] Influenza Virus Vaccine Quad IM, Preserv and ABX Free 6 MO-64 YRS (FLUCELVAX) Unknown Completed [facility] Influenza Virus Vaccine Unknown Completed [facility] TDAP Unknown Completed [facility] Influenza Virus Vaccine Quad IM 3+ YRS Unknown Completed [facility] SARS-COV-2 COVID-19 VACCINE - (MODERNA) Unknown Completed [facility] DTaP, Unspecified Formulation Unknown Completed [facility] Influenza Virus Vaccine Nasal Unknown Completed [facility] HEPATITIS A Unknown Completed [facility] Hep B, Adol or Pedi Dosage Unknown Completed [facility] Haemophilus influenzae type b vaccine, conjugate unspecified formulation Unknown Completed [facility] Hib-HbOC Unknown Completed [facility] HIB 4 Dose Schedule Unknown Completed [facility] HPV Unknown Completed [facility] Meningococcal Polysaccharide (groups A, C, Y and W-135) conjugate vaccine (MCV4P) Unknown Completed [facility] MMR Unknown Completed [facility] Pneumococcal 7 Conjugate, PCV7 (Prevnar7) Unknown Completed [facility] IPV Unknown Completed [facility] Poliovirus, Live, Oral, Trivalent Unknown Completed [facility] Varicella (varivax)(chicken pox) Unknown Completed [facility] Influenza Virus Vaccine Quad IM, Preserv and ABX Free 6 MO-64 YRS (FLUCELVAX) Unknown Completed [facility] Influenza Virus Vaccine Unknown Completed [facility] TDAP Unknown Completed [facility] Influenza Virus Vaccine Quad IM 3+ YRS Unknown Completed [facility] SARS-COV-2 COVID-19 VACCINE - (MODERNA) Unknown Completed [facility] DTaP, Unspecified Formulation Unknown Completed [facility] Influenza Virus Vaccine Nasal Unknown Completed [facility] HEPATITIS A Unknown Completed [facility] Hep B, Adol or Pedi Dosage Unknown Completed [facility] Haemophilus influenzae type b vaccine, conjugate unspecified formulation Unknown Completed [facility] Hib-HbOC Unknown Completed [facility] HIB 4 Dose Schedule Unknown Completed [facility] HPV Unknown Completed [facility] Meningococcal Polysaccharide (groups A, C, Y and W-135) conjugate vaccine (MCV4P) Unknown Completed [facility] MMR Unknown Completed [facility] Pneumococcal 7 Conjugate, PCV7 (Prevnar7) Unknown Completed [facility] IPV Unknown Completed [facility] Poliovirus, Live, Oral, Trivalent Unknown Completed [facility] Varicella (varivax)(chicken pox) Unknown Completed [facility] Influenza Virus Vaccine Quad IM, Preserv and ABX Free 6 MO-64 YRS (FLUCELVAX) Unknown Completed [facility] Influenza Virus Vaccine Quad .5 mL IM 6+ MO (FLUZONE/FLULAVAL/FL UARIX) Unknown Completed [facility] Influenza Virus Vaccine Unknown Completed [facility] TDAP Unknown Completed [facility] Influenza Virus Vaccine Quad IM 3+ YRS Unknown Completed [facility] SARS-COV-2 COVID-19 VACCINE - (MODERNA) Unknown Completed [facility] DTaP, Unspecified Formulation Unknown Completed [facility] Influenza Virus Vaccine Nasal Unknown Completed [facility] HEPATITIS A Unknown Completed [facility] Hep B, Adol or Pedi Dosage Unknown Completed [facility] Haemophilus influenzae type b vaccine, conjugate unspecified formulation Unknown Completed [facility] Hib-HbOC Unknown Completed [facility] HIB 4 Dose Schedule Unknown Completed [facility] HPV Unknown Completed [facility] Meningococcal Polysaccharide (groups A, C, Y and W-135) conjugate vaccine (MCV4P) Unknown Completed [facility] MMR Unknown Completed [facility] Pneumococcal 7 Conjugate, PCV7 (Prevnar7) Unknown Completed [facility] IPV Unknown Completed [facility] Poliovirus, Live, Oral, Trivalent Unknown Completed [facility] Varicella (varivax)(chicken pox) Unknown Completed [facility] Influenza Virus Vaccine Quad IM, Preserv and ABX Free 6 MO-64 YRS (FLUCELVAX) Unknown Completed [facility] Influenza Virus Vaccine Unknown Completed [facility] TDAP Unknown Completed [facility] Influenza Virus Vaccine Quad IM 3+ YRS Unknown Completed [facility] SARS-COV-2 COVID-19 VACCINE - (MODERNA) Unknown Completed [facility] DTaP, Unspecified Formulation Unknown Completed [facility] Influenza Virus Vaccine Nasal Unknown Completed [facility] HEPATITIS A Unknown Completed [facility] Hep B, Adol or Pedi Dosage Unknown Completed [facility] Haemophilus influenzae type b vaccine, conjugate unspecified formulation Unknown Completed [facility] Hib-HbOC Unknown Completed [facility] HIB 4 Dose Schedule Unknown Completed [facility] HPV Unknown Completed [facility] Meningococcal Polysaccharide (groups A, C, Y and W-135) conjugate vaccine (MCV4P) Unknown Completed [facility] MMR Unknown Completed [facility] Pneumococcal 7 Conjugate, PCV7 (Prevnar7) Unknown Completed [facility] IPV Unknown Completed [facility] Poliovirus, Live, Oral, Trivalent Unknown Completed [facility] Varicella (varivax)(chicken pox) Unknown Completed [facility] Influenza Virus Vaccine Quad IM, Preserv and ABX Free 6 MO-64 YRS (FLUCELVAX) Unknown Completed [facility] Influenza Virus Vaccine Unknown Completed [facility] TDAP Unknown Completed [facility] Influenza Virus Vaccine Quad IM 3+ YRS Unknown Completed [facility] SARS-COV-2 COVID-19 VACCINE - (MODERNA) Unknown Completed [facility] DTaP, Unspecified Formulation Unknown Completed [facility] Influenza Virus Vaccine Nasal Unknown Completed [facility] HEPATITIS A Unknown Completed [facility] Hep B, Adol or Pedi Dosage Unknown Completed [facility] Haemophilus influenzae type b vaccine, conjugate unspecified formulation Unknown Completed [facility] Hib-HbOC Unknown Completed [facility] HIB 4 Dose Schedule Unknown Completed [facility] HPV Unknown Completed [facility] Meningococcal Polysaccharide (groups A, C, Y and W-135) conjugate vaccine (MCV4P) Unknown Completed [facility] MMR Unknown Completed [facility] Pneumococcal 7 Conjugate, PCV7 (Prevnar7) Unknown Completed [facility] IPV Unknown Completed [facility] Poliovirus, Live, Oral, Trivalent Unknown Completed [facility] Varicella (varivax)(chicken pox) Unknown Completed [facility] Influenza Virus Vaccine Quad IM, Preserv and ABX Free 6 MO-64 YRS (FLUCELVAX) Unknown Completed [facility] TDAP Unknown Completed [facility] Influenza Virus Vaccine Unknown Completed [facility] TDAP Unknown Completed [facility] Influenza Virus Vaccine Quad IM 3+ YRS Unknown Completed [facility] SARS-COV-2 COVID-19 VACCINE - (MODERNA) Unknown Completed [facility] DTaP, Unspecified Formulation Unknown Completed [facility] Influenza Virus Vaccine Nasal Unknown Completed [facility] HEPATITIS A Unknown Completed [facility] Hep B, Adol or Pedi Dosage Unknown Completed [facility] Haemophilus influenzae type b vaccine, conjugate unspecified formulation Unknown Completed [facility] Hib-HbOC Unknown Completed [facility] HIB 4 Dose Schedule Unknown Completed [facility] HPV Unknown Completed [facility] Meningococcal Polysaccharide (groups A, C, Y and W-135) conjugate vaccine (MCV4P) Unknown Completed [facility] MMR Unknown Completed [facility] Pneumococcal 7 Conjugate, PCV7 (Prevnar7) Unknown Completed [facility] IPV Unknown Completed [facility] Poliovirus, Live, Oral, Trivalent Unknown Completed [facility] Varicella (varivax)(chicken pox) Unknown Completed [facility] Influenza Virus Vaccine Quad IM, Preserv and ABX Free 6 MO-64 YRS (FLUCELVAX) Unknown Completed [facility] Influenza Virus Vaccine Unknown Completed [facility] TDAP Unknown Completed [facility] Influenza Virus Vaccine Quad IM 3+ YRS Unknown Completed [facility] SARS-COV-2 COVID-19 VACCINE - (MODERNA) [facility], [facility] Completed [facility] Influenza Virus Vaccine Nasal Unknown Completed [facility] HEPATITIS A Unknown Completed [facility] Hep B, Adol or Pedi Dosage Unknown Completed [facility] Haemophilus influenzae type b vaccine, conjugate unspecified formulation Unknown Completed [facility] Hib-HbOC Unknown Completed [facility] HIB 4 Dose Schedule Unknown Completed [facility] HPV Unknown Completed [facility] Meningococcal Polysaccharide (groups A, C, Y and W-135) conjugate vaccine (MCV4P) Unknown Completed [facility] MMR Unknown Completed [facility] Pneumococcal 7 Conjugate, PCV7 (Prevnar7) Unknown Completed [facility] Influenza Virus Vaccine Unknown Completed [facility] IPV Unknown Completed [facility] Poliovirus, Live, Oral, Trivalent Unknown Completed [facility] Varicella (varivax)(chicken pox) Unknown Completed [facility] Influenza Virus Vaccine Quad IM, Preserv and ABX Free 6 MO-64 YRS (FLUCELVAX) Unknown Completed [facility] Influenza Virus Vaccine Unknown Completed [facility] TDAP Unknown Completed [facility] Influenza Virus Vaccine Quad IM 3+ YRS Unknown Completed [facility] SARS-COV-2 COVID-19 VACCINE - (MODERNA) Unknown Completed [facility] DTaP, Unspecified Formulation Unknown Completed [facility] Influenza Virus Vaccine Nasal Unknown Completed [facility] HEPATITIS A Unknown Com[facility] Hep B, Adol or Pedi Dosage Unknown Completed [facility] Haemophilus influenzae type b vaccine, conjugate unspecified formulation Unknown Completed [facility] SARS-COV-2 COVID-19 VACCINE - (MODERNA) [facility] Com[facility] HIB 4 Dose Schedule Unknown Completed [facility] HPV Unknown Completed [facility] Meningococcal Polysaccharide (groups A, C, Y and W-135) conjugate vaccine (MCV4P) Unknown Completed [facility] MMR Unknown Completed [facility] Pneumococcal 7 Conjugate, PCV7 (Prevnar7) Unknown Completed [facility] IPV Unknown Completed [facility] DTaP, Unspecified Formulation Unknown Completed [facility] Poliovirus, Live, Oral, Trivalent Unknown Completed [facility] Varicella (varivax)(chicken pox) Unknown Completed [facility] Influenza Virus Vaccine Quad IM, Preserv and ABX Free 6 MO-64 YRS (FLUCELVAX) Unknown Completed [facility] Influenza Virus Vaccine Unknown Completed [facility] TDAP Unknown Completed [facility] Influenza Virus Vaccine Quad IM 3+ YRS Unknown Completed [facility] SARS-COV-2 COVID-19 VACCINE - (MODERNA) Unknown [facility] DTaP, Unspecified Formulation Unknown Completed [facility] Influenza Virus Vaccine Nasal Unknown Completed [facility] HEPATITIS A Unknown Completed [facility] Hep B, Adol or Pedi Dosage Unknown Completed [facility] Haemophilus influenzae type b vaccine, conjugate unspecified formulation Unknown Completed [facility] Hib-HbOC Unknown Completed [facility] HIB 4 Dose Schedule Unknown Completed [facility] HPV Unknown Completed [facility] Meningococcal Polysaccharide (groups A, C, Y and W-135) conjugate vaccine (MCV4P) Unknown Completed [facility] MMR Unknown Completed [facility] Pneumococcal 7 Conjugate, PCV7 (Prevnar7) Unknown Completed [facility] IPV Unknown Completed [facility] Poliovirus, Live, Oral, Trivalent Unknown Completed [facility] Varicella (varivax)(chicken pox) Unknown Completed [facility] Influenza Virus Vaccine Quad IM, Preserv and ABX Free 6 MO-64 YRS (FLUCELVAX) Unknown Completed [facility] Influenza Virus Vaccine Nasal Unknown Completed [facility] HEPATITIS A Unknown Completed [facility] Influenza Virus Vaccine Unknown Completed [facility] TDAP Unknown Completed [facility] Influenza Virus Vaccine Quad IM 3+ YRS Unknown Completed [facility] SARS-COV-2 COVID-19 VACCINE - (MODERNA) Unknown Completed [facility] DTaP, Unspecified Formulation Unknown Completed [facility] Influenza Virus Vaccine Nasal Unknown Completed [facility] HEPATITIS A Unknown Completed [facility] Hep B, Adol or Pedi Dosage Unknown Completed [facility] Haemophilus influenzae type b vaccine, conjugate unspecified formulation Unknown Completed [facility] Hep B, Adol or Pedi Dosage Unknown Completed [facility] Hib-HbOC Unknown Completed [facility] HIB 4 Dose Schedule Unknown Completed [facility] HPV Unknown Completed [facility] Meningococcal Polysaccharide (groups A, C, Y and W-135) conjugate vaccine (MCV4P) Unknown Completed [facility] MMR Unknown Completed [facility] Pneumococcal 7 Conjugate, PCV7 (Prevnar7) Unknown Completed [facility] IPV Unknown Completed [facility] Poliovirus, Live, Oral, Trivalent Unknown Completed [facility] Varicella (varivax)(chicken pox) Unknown Completed [facility] Influenza Virus Vaccine Quad IM, Preserv and ABX Free 6 MO-64 YRS (FLUCELVAX) Unknown Completed [facility] Influenza Virus Vaccine Unknown Completed [facility] TDAP Unknown Completed [facility] Influenza Virus Vaccine Quad IM 3+ YRS Unknown Completed [facility] SARS-COV-2 COVID-19 VACCINE - (MODERNA) Unknown Completed [facility] DTaP, Unspecified Formulation Unknown Completed [facility] Haemophilus influenzae type b vaccine, conjugate unspecified formulation Unknown Completed [facility] Influenza Virus Vaccine Nasal Unknown Completed [facility] HEPATITIS A Unknown Completed [facility] Hep B, Adol or Pedi Dosage Unknown Completed [facility] Haemophilus influenzae type b vaccine, conjugate unspecified formulation Unknown Completed [facility] Hib-HbOC Unknown Completed [facility] HIB 4 Dose Schedule Unknown Completed [facility] HPV Unknown Completed [facility] Meningococcal Polysaccharide (groups A, C, Y and W-135) conjugate vaccine (MCV4P) Unknown Completed [facility] MMR Unknown Completed [facility] Pneumococcal 7 Conjugate, PCV7 (Prevnar7) Unknown Completed [facility] IPV Unknown Completed [facility] Poliovirus, Live, Oral, Trivalent Unknown Completed [facility] Varicella (varivax)(chicken pox) Unknown Completed [facility] Influenza Virus Vaccine Quad IM, Preserv and ABX Free 6 MO-64 YRS (FLUCELVAX) Unknown Completed [facility] Hib-HbOC Unknown Completed [facility] HIB 4 Dose Schedule Unknown Completed [facility] Influenza Virus Vaccine Unknown Completed [facility] TDAP Unknown Completed [facility] Influenza Virus Vaccine Quad IM 3+ YRS Unknown Completed [facility] SARS-COV-2 COVID-19 VACCINE - (MODERNA) Unknown Completed [facility] HPV Unknown Completed [facility] DTaP, Unspecified Formulation Unknown Completed [facility] Influenza Virus Vaccine Nasal Unknown Completed [facility] HEPATITIS A Unknown Completed [facility] Hep B, Adol or Pedi Dosage Unknown Completed [facility] Meningococcal Polysaccharide (groups A, C, Y and W-135) conjugate vaccine (MCV4P) Unknown Completed [facility] Haemophilus influenzae type b vaccine, conjugate unspecified formulation Unknown Completed [facility] Hib-HbOC Unknown Completed [facility] HIB 4 Dose Schedule Unknown Completed [facility] HPV Unknown Completed [facility] Meningococcal Polysaccharide (groups A, C, Y and W-135) conjugate vaccine (MCV4P) Unknown Completed [facility] MMR Unknown Completed [facility] MMR Unknown Completed [facility] Pneumococcal 7 Conjugate, PCV7 (Prevnar7) Unknown Completed [facility] IPV Unknown Completed [facility] Poliovirus, Live, Oral, Trivalent Unknown Completed [facility] Varicella (varivax)(chicken pox) Unknown Completed [facility] Influenza Virus Vaccine Quad IM, Preserv and ABX Free 6 MO-64 YRS (FLUCELVAX) Unknown Completed [facility] Pneumococcal 7 Conjugate, PCV7 (Prevnar7) Unknown Completed [facility] IPV Unknown Completed [facility] Poliovirus, Live, Oral, Trivalent Unknown Completed [facility] Varicella (varivax)(chicken pox) Unknown Completed [facility] Influenza Virus Vaccine Quad IM, Preserv and ABX Free 6 MO-64 YRS (FLUCELVAX) Unknown Completed [facility] Influenza Virus Vaccine Quad .5 mL IM 6+ MO (FLUZONE/FLULAVAL/FL UARIX) Unknown Completed [facility] TDAP Unknown Completed [facility] Influenza Virus Vaccine Unknown Completed [facility] TDAP Unknown Completed [facility] Influenza Virus Vaccine Quad IM 3+ YRS Unknown Completed [facility] SARS-COV-2 COVID-19 VACCINE - (MODERNA) Unknown Completed [facility] DTaP, Unspecified Formulation Unknown Completed [facility] Influenza Virus Vaccine Nasal Unknown Completed [facility] HEPATITIS A Unknown Completed [facility] Hep B, Adol or Pedi Dosage Unknown Completed [facility] Haemophilus influenzae type b vaccine, conjugate unspecified formulation Unknown Completed [facility] Hib-HbOC Unknown Completed [facility] HIB 4 Dose Schedule Unknown Completed [facility] HPV Unknown Completed [facility] Meningococcal Polysaccharide (groups A, C, Y and W-135) conjugate vaccine (MCV4P) Unknown Completed [facility] MMR Unknown Completed [facility] Pneumococcal 7 Conjugate, PCV7 (Prevnar7) Unknown Completed [facility] IPV Unknown Completed [facility] Poliovirus, Live, Oral, Trivalent Unknown Completed [facility] Varicella (varivax)(chicken pox) Unknown Completed [facility] Influenza Virus Vaccine Quad IM, Preserv and ABX Free 6 MO-64 YRS (FLUCELVAX) Unknown Completed [facility] Influenza Virus Vaccine Unknown Completed [facility] SARS-COV-2 COVID-19 VACCINE - (MODERNA) Unknown Completed [facility] Influenza Virus Vaccine Nasal Unknown Completed [facility] HIB 4 Dose Schedule Unknown Completed [facility] HPV Unknown Completed [facility] Meningococcal Polysaccharide (groups A, C, Y and W-135) conjugate vaccine (MCV4P) Unknown Completed [facility] Pneumococcal 7 Conjugate, PCV7 (Prevnar7) Unknown Completed [facility] Poliovirus, Live, Oral, Trivalent Unknown Completed [facility] Influenza Virus Vaccine Quad IM, Preserv and ABX Free 6 MO-64 YRS (FLUCELVAX) Unknown Completed [facility] TDAP Unknown Completed [facility] Influenza Virus Vaccine Quad IM 3+ YRS Unknown Completed [facility] DTaP, Unspecified Formulation Unknown Completed [facility] HEPATITIS A Unknown Completed [facility] Hep B, Adol or Pedi Dosage Unknown Completed [facility] Haemophilus influenzae type b vaccine, conjugate unspecified formulation Unknown Completed [facility] Hib-HbOC Unknown Completed [facility] MMR Unknown Completed [facility] IPV Unknown Completed [facility] Varicella (varivax)(chicken pox) Unknown Completed [facility] Influenza Virus Vaccine Unknown Completed [facility] TDAP Unknown Completed [facility] Influenza Virus Vaccine Quad IM 3+ YRS Unknown Completed [facility] SARS-COV-2 COVID-19 VACCINE - (MODERNA) Unknown Completed [facility] DTaP, Unspecified Formulation Unknown Completed [facility] Influenza Virus Vaccine Nasal Unknown Completed [facility] HEPATITIS A Unknown Completed [facility] Hep B, Adol or Pedi Dosage Unknown Completed [facility] Haemophilus influenzae type b vaccine, conjugate unspecified formulation Unknown Completed [facility] Hib-HbOC Unknown Completed [facility] HIB 4 Dose Schedule Unknown Completed [facility] HPV Unknown Completed [facility] Meningococcal Polysaccharide (groups A, C, Y and W-135) conjugate vaccine (MCV4P) Unknown Completed [facility] MMR Unknown Completed [facility] Pneumococcal 7 Conjugate, PCV7 (Prevnar7) Unknown Completed [facility] IPV Unknown Completed [facility] Poliovirus, Live, Oral, Trivalent Unknown Completed [facility] Varicella (varivax)(chicken pox) Unknown Completed [facility] Influenza Virus Vaccine Quad IM, Preserv and ABX Free 6 MO-64 YRS (FLUCELVAX) Unknown Completed [facility] Influenza Virus Vaccine Unknown Completed [facility] SARS-COV-2 COVID-19 VACCINE - (MODERNA) Unknown Completed [facility] Influenza Virus Vaccine Nasal Unknown Completed [facility] HIB 4 Dose Schedule Unknown Completed [facility] HPV Unknown Completed [facility] Meningococcal Polysaccharide (groups A, C, Y and W-135) conjugate vaccine (MCV4P) Unknown Completed [facility] Pneumococcal 7 Conjugate, PCV7 (Prevnar7) Unknown Completed [facility] Poliovirus, Live, Oral, Trivalent Unknown Completed [facility] Influenza Virus Vaccine Quad IM, Preserv and ABX Free 6 MO-64 YRS (FLUCELVAX) Unknown Completed [facility] TDAP Unknown Completed [facility] Influenza Virus Vaccine Quad IM 3+ YRS Unknown Completed [facility] DTaP, Unspecified Formulation Unknown Completed [facility] HEPATITIS A Unknown Completed [facility] Hep B, Adol or Pedi Dosage Unknown Completed [facility] Haemophilus influenzae type b vaccine, conjugate unspecified formulation Unknown Completed [facility] Hib-HbOC Unknown Completed [facility] MMR Unknown Completed [facility] IPV Unknown Completed [facility] Varicella (varivax)(chicken pox) Unknown Completed [facility] Influenza Virus Vaccine Unknown Completed [facility] SARS-COV-2 COVID-19 VACCINE - (MODERNA) Unknown Completed [facility] Influenza Virus Vaccine Nasal Unknown Completed [facility] HIB 4 Dose Schedule Unknown Completed [facility] HPV Unknown Completed [facility] Meningococcal Polysaccharide (groups A, C, Y and W-135) conjugate vaccine (MCV4P) Unknown Completed [facility] Influenza Virus Vaccine Unknown Completed [facility] Pneumococcal 7 Conjugate, PCV7 (Prevnar7) Unknown Completed [facility] Poliovirus, Live, Oral, Trivalent Unknown Completed [facility] Influenza Virus Vaccine Quad IM, Preserv and ABX Free 6 MO-64 YRS (FLUCELVAX) Unknown Completed [facility] TDAP Unknown Completed [facility] TDAP Unknown Completed [facility] Influenza Virus Vaccine Quad IM 3+ YRS Unknown Completed [facility] Influenza Virus Vaccine Quad IM 3+ YRS Unknown Completed [facility] DTaP, Unspecified Formulation Unknown Completed [facility] HEPATITIS A Unknown Completed [facility] Hep B, Adol or Pedi Dosage Unknown Completed [facility] Haemophilus influenzae type b vaccine, conjugate unspecified formulation Unknown Completed [facility] Hib-HbOC Unknown Completed [facility] MMR Unknown Completed [facility] IPV Unknown Completed [facility] Varicella (varivax)(chicken pox) Unknown Completed [facility] Influenza Virus Vaccine Unknown Completed [facility] TDAP Unknown Completed [facility] Influenza Virus Vaccine Quad IM 3+ YRS Unknown Completed [facility] SARS-COV-2 COVID-19 VACCINE - (MODERNA) Unknown Completed [facility] DTaP, Unspecified Formulation Unknown Completed [facility] Influenza Virus Vaccine Nasal Unknown Completed [facility] HEPATITIS A Unknown Completed [facility] Hep B, Adol or Pedi Dosage Unknown Completed [facility] Haemophilus influenzae type b vaccine, conjugate unspecified formulation Unknown Completed [facility] Hib-HbOC Unknown Completed [facility] HIB 4 Dose Schedule Unknown Completed [facility] HPV Unknown Completed [facility] Meningococcal Polysaccharide (groups A, C, Y and W-135) conjugate vaccine (MCV4P) Unknown Completed [facility] MMR Unknown Completed [facility] Pneumococcal 7 Conjugate, PCV7 (Prevnar7) Unknown Completed [facility] IPV Unknown Completed [facility] Poliovirus, Live, Oral, Trivalent Unknown Completed [facility] Varicella (varivax)(chicken pox) Unknown Completed [facility] Influenza Virus Vaccine Quad IM, Preserv and ABX Free 6 MO-64 YRS (FLUCELVAX) Unknown Completed [facility] Influenza Virus Vaccine Unknown Completed [facility] TDAP Unknown Completed [facility] Influenza Virus Vaccine Quad IM 3+ YRS Unknown Completed [facility] SARS-COV-2 COVID-19 VACCINE - (MODERNA) Unknown Completed [facility] DTaP, Unspecified Formulation Unknown Completed [facility] Influenza Virus Vaccine Nasal Unknown Completed [facility] HEPATITIS A Unknown Completed [facility] Hep B, Adol or Pedi Dosage Unknown Completed [facility] Haemophilus influenzae type b vaccine, conjugate unspecified formulation Unknown Completed [facility] Hib-HbOC Unknown Completed [facility] HIB 4 Dose Schedule Unknown Completed [facility] HPV Unknown Completed [facility] Meningococcal Polysaccharide (groups A, C, Y and W-135) conjugate vaccine (MCV4P) Unknown Completed [facility] MMR Unknown Completed [facility] Pneumococcal 7 Conjugate, PCV7 (Prevnar7) Unknown Completed [facility] IPV Unknown Completed [facility] Poliovirus, Live, Oral, Trivalent Unknown Completed [facility] Varicella (varivax)(chicken pox) Unknown Completed [facility] Influenza Virus Vaccine Quad IM, Preserv and ABX Free 6 MO-64 YRS (FLUCELVAX) Unknown Completed [facility] Influenza Virus Vaccine Unknown Completed [facility] SARS-COV-2 COVID-19 VACCINE - (MODERNA) Unknown Completed [facility] DTaP, Unspecified Formulation Unknown Completed [facility] Influenza Virus Vaccine Quad .5 mL IM 6+ MO (FLUZONE/FLULAVAL/FL UARIX) Unknown Completed [facility] Influenza Virus Vaccine Nasal Unknown Completed [facility] HEPATITIS A Unknown Completed [facility] Hep B, Adol or Pedi Dosage Unknown Completed [facility] Haemophilus influenzae type b vaccine, conjugate unspecified formulation Unknown Completed [facility] Hib-HbOC Unknown Completed [facility] HIB 4 Dose Schedule Unknown Completed [facility] HPV Unknown Completed [facility] Meningococcal Polysaccharide (groups A, C, Y and W-135) conjugate vaccine (MCV4P) Unknown Completed [facility] MMR Unknown Completed [facility] Pneumococcal 7 Conjugate, PCV7 (Prevnar7) Unknown Completed [facility] IPV Unknown Completed [facility] Poliovirus, Live, Oral, Trivalent Unknown Completed [facility] TDAP Unknown Completed [facility] Varicella (varivax)(chicken pox) Unknown Completed [facility] Influenza Virus Vaccine Quad IM, Preserv and ABX Free 6 MO-64 YRS (FLUCELVAX) Unknown Completed [facility] Influenza Virus Vaccine Unknown Completed [facility] TDAP Unknown Completed [facility] Influenza Virus Vaccine Quad IM 3+ YRS Unknown Completed [facility] SARS-COV-2 COVID-19 VACCINE - (MODERNA) Unknown Completed [facility] DTaP, Unspecified Formulation Unknown Completed [facility] Influenza Virus Vaccine Nasal Unknown Completed [facility] HEPATITIS A Unknown Completed [facility] Hep B, Adol or Pedi Dosage Unknown Completed [facility] Haemophilus influenzae type b vaccine, conjugate unspecified formulation Unknown Completed [facility] Hib-HbOC Unknown Completed [facility] HIB 4 Dose Schedule Unknown Completed [facility] HPV Unknown Completed [facility] Meningococcal Polysaccharide (groups A, C, Y and W-135) conjugate vaccine (MCV4P) Unknown Completed [facility] MMR Unknown Completed [facility] Pneumococcal 7 Conjugate, PCV7 (Prevnar7) Unknown Completed [facility] IPV Unknown Completed [facility] Poliovirus, Live, Oral, Trivalent Unknown Completed [facility] Varicella (varivax)(chicken pox) Unknown Completed [facility] Influenza Virus Vaccine Quad IM, Preserv and ABX Free 6 MO-64 YRS (FLUCELVAX) Unknown Completed [facility] Influenza Virus Vaccine Unknown Completed [facility] SARS-COV-2 COVID-19 VACCINE - (MODERNA) Unknown Com[facility] Influenza Virus Vaccine Nasal Unknown Completed [facility] HIB 4 Dose Schedule Unknown Completed [facility] HPV Unknown Completed [facility] Meningococcal Polysaccharide (groups A, C, Y and W-135) conjugate vaccine (MCV4P) Unknown Completed [facility] Pneumococcal 7 Conjugate, PCV7 (Prevnar7) Unknown Completed [facility] Poliovirus, Live, Oral, Trivalent Unknown Completed [facility] Influenza Virus Vaccine Quad IM, Preserv and ABX Free 6 MO-64 YRS (FLUCELVAX) Unknown Completed [facility] Influenza Virus Vaccine Unknown Completed [facility] SARS-COV-2 COVID-19 VACCINE - (MODERNA) Unknown Com[facility] Influenza Virus Vaccine Nasal Unknown Completed [facility] HIB 4 Dose Schedule Unknown Completed [facility] HPV Unknown Completed [facility] Meningococcal Polysaccharide (groups A, C, Y and W-135) conjugate vaccine (MCV4P) Unknown Completed [facility] Pneumococcal 7 Conjugate, PCV7 (Prevnar7) Unknown Completed [facility] Poliovirus, Live, Oral, Trivalent Unknown Completed [facility] Influenza Virus Vaccine Quad IM, Preserv and ABX Free 6 MO-64 YRS (FLUCELVAX) Unknown Completed [facility] TDAP Unknown Completed [facility] Influenza Virus Vaccine Quad IM 3+ YRS Unknown Completed [facility] DTaP, Unspecified Formulation Unknown Completed [facility] HEPATITIS A Unknown Completed [facility] Hep B, Adol or Pedi Dosage Unknown Completed [facility] Haemophilus influenzae type b vaccine, conjugate unspecified formulation Unknown Completed [facility] Hib-HbOC Unknown Completed [facility] MMR Unknown Completed [facility] IPV Unknown Completed [facility] Varicella (varivax)(chicken pox) Unknown Completed [facility] Influenza Virus Vaccine Unknown Completed [facility] SARS-COV-2 COVID-19 VACCINE - (MODERNA) Unknown Completed [facility] Influenza Virus Vaccine Unknown Completed [facility] SARS-COV-2 COVID-19 VACCINE - (MODERNA) Unknown Completed [facility] DTaP, Unspecified Formulation Unknown Completed [facility] Influenza Virus Vaccine Nasal Unknown Completed [facility] HIB 4 Dose Schedule Unknown Completed [facility] HPV Unknown Completed [facility] Meningococcal Polysaccharide (groups A, C, Y and W-135) conjugate vaccine (MCV4P) Unknown Completed [facility] Pneumococcal 7 Conjugate, PCV7 (Prevnar7) Unknown Completed [facility] Poliovirus, Live, Oral, Trivalent Unknown Completed [facility] Influenza Virus Vaccine Quad IM, Preserv and ABX Free 6 MO-64 YRS (FLUCELVAX) Unknown Completed [facility] Influenza Virus Vaccine Nasal Unknown Completed [facility] HEPATITIS A Unknown [facility] Influ[facility] Virus Vaccine Unknown Completed [facility] TDAP Unknown Completed [facility] Hep B, Adol or Pedi Dosage Unknown Completed [facility] Influenza Virus Vaccine Quad IM 3+ YRS Unknown Completed [facility] SARS-COV-2 COVID-19 VACCINE - (MODERNA) Unknown [facility] DTaP, Unspecified Formulation Unknown Completed [facility] Influenza Virus Vaccine Nasal Unknown Completed [facility] HEPATITIS A Unknown [facility] Hep B, Adol or Pedi Dosage Unknown Completed [facility] Haemophilus influenzae type b vaccine, conjugate unspecified formulation Unknown Completed [facility] Hib-HbOC Unknown Completed [facility] HIB 4 Dose Schedule Unknown Completed [facility] HPV Unknown Completed [facility] Meningococcal Polysaccharide (groups A, C, Y and W-135) conjugate vaccine (MCV4P) Unknown Completed [facility] MMR Unknown Completed [facility] Pneumococcal 7 Conjugate, PCV7 (Prevnar7) Unknown Completed [facility] IPV Unknown Completed [facility] Poliovirus, Live, Oral, Trivalent Unknown Completed [facility] Haemophilus influenzae type b vaccine, conjugate unspecified formulation Unknown Completed [facility] Varicella (varivax)(chicken pox) Unknown Completed [facility] Influenza Virus Vaccine Quad IM, Preserv and ABX Free 6 MO-64 YRS (FLUCELVAX) Unknown Completed [facility] Vital Signs Vital Name Observation Time Observation Value Comments S ource Systolic blood pressure 2025-01-07 20:13:00 129 mm[Hg] [facility] Diastolic blood pressure 2025-01-07 20:13:00 75 mm[Hg] [facility] Heart rate 2025-01-07 20:13:00 78 /min [facility] Body temperature 2025-01-07 20:13:00 36.33 Opal [facility] Respiratory rate 2025-01-07 20:13:00 18 /min [facility] Body height 2025-01-07 20:13:00 152.4 cm [facility] Body weight 2025-01-07 20:13:00 83.15 kg [facility] acute hospital BMI 2025-01-07 20:13:00 35.80 kg/m2 [facility] acute hospital Systolic blood pressure 2024-12-31 19:59:00 114 mm[Hg] [facility] Diastolic blood pressure 2024-12-31 19:59:00 70 mm[Hg] [facility] Heart rate 2024-12-31 19:59:00 86 /min [facility] Body temperature 2024-12-31 19:59:00 36.17 Opal [facility] Respiratory rate 2024-12-31 19:59:00 18 /min [facility] Body height 2024-12-31 19:59:00 152.4 cm [facility] acute hospital Body weight 2024-12-31 19:59:00 83.054 kg [facility] BMI 2024-12-31 19:59:00 35.76 kg/m2 [facility] Systolic blood pressure 2024-12-25 15:28:00 119 mm[Hg] [facility] Diastolic blood pressure 2024-12-25 15:28:00 71 mm[Hg] [facility] Heart rate 2024-12-25 15:28:00 71 /min [facility] Body temperature 2024-12-25 15:28:00 36.39 Opal [facility] Respiratory rate 2024-12-25 15:28:00 18 /min [facility] Body height 2024-12-25 15:28:00 152.4 cm [facility] acute hospital Body weight 2024-12-25 15:28:00 81.511 kg General acute hospital BMI 2024-12-25 15:28:00 35.10 kg/m2 [facility] Systolic blood pressure 2024-12-18 13:02:00 121 mm[Hg] [facility] Diastolic blood pressure 2024-12-18 13:02:00 80 mm[Hg] [facility] Heart rate 2024-12-18 13:02:00 80 /min [facility] Body temperature 2024-12-18 13:02:00 36.44 Opal [facility] Respiratory rate 2024-12-18 13:02:00 18 /min [facility] Body height 2024-12-18 13:02:00 152.4 cm [facility] Body weight 2024-12-18 13:02:00 80.485 kg [facility] acute hospital BMI 2024-12-18 13:02:00 34.65 kg/m2 [facility] Body temperature 2024-12-11 14:45:00 36.61 Opal [facility] Systolic blood pressure 2024-12-08 13:48:00 127 mm[Hg] [facility] Diastolic blood pressure 2024-12-08 13:48:00 85 mm[Hg] [facility] Heart rate 2024-12-08 13:48:00 66 /min [facility] Body temperature 2024-12-08 13:48:00 36.44 Opal [facility] Respiratory rate 2024-12-08 13:48:00 18 /min [facility] Body height 2024-12-08 13:48:00 152.4 cm [facility] Body weight 2024-12-08 13:48:00 78.926 kg [facility] BMI 2024-12-08 13:48:00 33.98 kg/m2 [facility] Systolic blood pressure 2023-12-19 02:09:00 122 mm[Hg] [facility] Diastolic blood pressure 2023-12-19 02:09:00 85 mm[Hg] [facility] Heart rate 2023-12-19 02:09:00 70 /min [facility] Body temperature 2023-12-19 02:09:00 36.94 Opal [facility] Respiratory rate 2023-12-19 02:09:00 18 /min [facility] Oxygen saturation in Arterial blood by Pulse oximetry 2023-12-19 02:09:00 97 /min [facility] Body height 2023-12-19 00:46:00 152.4 cm General acute hospital Body weight 2023-12-19 00:46:00 79.833 kg General acute hospital BMI 2023-12-19 00:46:00 34.37 kg/m2 General acute hospital Systolic blood pressure 2023-12-12 15:08:00 138 mm[Hg] [facility] Diastolic blood pressure 2023-12-12 15:08:00 88 mm[Hg] [facility] Heart rate 2023-12-12 15:08:00 72 /min [facility] Body temperature 2023-12-12 15:08:00 36.67 Opal [facility] Respiratory rate 2023-12-12 15:08:00 16 /min [facility] Body weight 2023-12-12 15:08:00 80.06 kg General acute hospital BMI 2023-12-12 15:08:00 34.47 kg/m2 General acute hospital Systolic blood pressure 2023-12-05 14:00:00 128 mm[Hg] [facility] Diastolic blood pressure 2023-12-05 14:00:00 84 mm[Hg] [facility] Heart rate 2023-12-05 14:00:00 65 /min [facility] Body temperature 2023-12-05 14:00:00 36.61 Opal [facility] Respiratory rate 2023-12-05 14:00:00 17 /min [facility] Body height 2023-12-05 14:00:00 152.4 cm [facility] acute hospital Body weight 2023-12-05 14:00:00 79.969 kg General acute hospital BMI 2023-12-05 14:00:00 34.43 kg/m2 General acute hospital Oxygen saturation in Arterial blood by Pulse oximetry 2023-12-05 14:00:00 97 /min [facility] Systolic blood pressure 2023-10-24 23:22:00 126 mm[Hg] [facility] Diastolic blood pressure 2023-10-24 23:22:00 96 mm[Hg] [facility] Heart rate 2023-10-24 23:22:00 89 /min [facility] Body temperature 2023-10-24 23:22:00 37 Opal [facility] Respiratory rate 2023-10-24 23:22:00 14 /min [facility] Body height 2023-10-24 23:22:00 162.6 cm [facility] acute hospital Body weight 2023-10-24 23:22:00 82.827 kg General acute hospital BMI 2023-10-24 23:22:00 31.34 kg/m2 General acute hospital Oxygen saturation in Arterial blood by Pulse oximetry 2023-10-24 23:22:00 97 /min [facility] Systolic blood pressure 2023-07-21 01:00:00 136 mm[Hg] [facility] Diastolic blood pressure 2023-07-21 01:00:00 99 mm[Hg] [facility] Heart rate 2023-07-21 01:00:00 90 /min [facility] Body temperature 2023-07-21 01:00:00 37.17 Opal [facility] Respiratory rate 2023-07-21 01:00:00 15 /min [facility] Body height 2023-07-21 01:00:00 152.4 cm [facility] 2023-07-21 01:00:00 81.421 kg General acute hospital BMI 2023-07-21 01:00:00 35.06 kg/m2 General acute hospital Oxygen saturation in Arterial blood by Pulse oximetry 2023-07-21 01:00:00 100 /min [facility] Systolic blood pressure 2023-05-14 19:44:00 125 mm[Hg] [facility] Diastolic blood pressure 2023-05-14 19:44:00 87 mm[Hg] [facility] Heart rate 2023-05-14 19:43:00 80 /min [facility] Body temperature 2023-05-14 19:43:00 36.72 Opal [facility] Respiratory rate 2023-05-14 19:43:00 17 /min [facility] Body height 2023-05-14 19:43:00 160 cm General acute hospital Body weight 2023-05-14 19:43:00 81.285 kg General acute hospital BMI 2023-05-14 19:43:00 31.74 kg/m2 General acute hospital Oxygen saturation in Arterial blood by Pulse oximetry 2023-05-14 19:43:00 99 /min [facility] Systolic blood pressure 2023-04-22 15:19:00 137 mm[Hg] [facility] Diastolic blood pressure 2023-04-22 15:19:00 87 mm[Hg] [facility] Heart rate 2023-04-22 15:19:00 84 /min [facility] Body temperature 2023-04-22 15:19:00 36.78 Opal [facility] Respiratory rate 2023-04-22 15:19:00 16 /min [facility] Body weight 2023-04-22 15:19:00 80.513 kg General acute hospital BMI 2023-04-22 15:19:00 34.67 kg/m2 [facility] Oxygen saturation in Arterial blood by Pulse oximetry 2023-04-22 15:19:00 98 /min [facility] Systolic blood pressure 2023-03-11 15:03:00 135 mm[Hg] [facility] Diastolic blood pressure 2023-03-11 15:03:00 81 mm[Hg] [facility] Heart rate 2023-03-11 15:03:00 83 /min [facility] Oxygen saturation in Arterial blood by Pulse oximetry 2023-03-11 15:03:00 97 /min [facility] Body temperature 2023-03-11 15:02:00 36.56 Opal [facility] Respiratory rate 2023-03-11 15:02:00 16 /min [facility] Body height 2023-03-11 15:02:00 152.4 cm [facility] acute hospital Body weight 2023-03-11 15:02:00 81.194 kg General acute hospital BMI 2023-03-11 15:02:00 34.96 kg/m2 [facility] Systolic blood pressure 2023-02-20 05:00:00 128 mm[Hg] [facility] Diastolic blood pressure 2023-02-20 05:00:00 91 mm[Hg] [facility] Heart rate 2023-02-20 05:00:00 65 /min [facility] Respiratory rate 2023-02-20 05:00:00 15 /min [facility] Oxygen saturation in Arterial blood by Pulse oximetry 2023-02-20 05:00:00 97 /min [facility] Body temperature 2023-02-20 01:50:00 37.5 Opal [facility] Body height 2023-02-20 01:50:00 152.4 cm [facility] Body weight 2023-02-20 01:50:00 80.74 kg General acute hospital BMI 2023-02-20 01:50:00 34.76 kg/m2 General acute hospital Systolic blood pressure 2022-11-10 09:01:00 120 mm[Hg] [facility] Diastolic blood pressure 2022-11-10 09:01:00 79 mm[Hg] [facility] Heart rate 2022-11-10 09:01:00 68 /min [facility] Respiratory rate 2022-11-10 09:01:00 22 /min [facility] Oxygen saturation in Arterial blood by Pulse oximetry 2022-11-10 09:01:00 98 /min [facility] Body temperature 2022-11-10 06:37:00 37.11 Opal [facility] Body height 2022-11-10 06:37:00 152.4 cm [facility] acute hospital Body weight 2022-11-10 06:37:00 80.74 kg General acute hospital BMI 2022-11-10 06:37:00 34.76 kg/m2 [facility] Systolic blood pressure 2022-05-07 21:59:00 115 mm[Hg] [facility] Diastolic blood pressure 2022-05-07 21:59:00 73 mm[Hg] [facility] Heart rate 2022-05-07 21:59:00 60 /min [facility] Body temperature 2022-05-07 21:59:00 36.72 Opal [facility] Body height 2022-05-07 21:59:00 152.4 cm [facility] Body weight 2022-05-07 21:59:00 84.006 kg General acute hospital BMI 2022-05-07 21:59:00 36.17 kg/m2 General acute hospital Systolic blood pressure 2022-04-17 13:36:00 119 mm[Hg] [facility] Diastolic blood pressure 2022-04-17 13:36:00 74 mm[Hg] [facility] Heart rate 2022-04-17 13:36:00 90 /min [facility] Body temperature 2022-04-17 13:36:00 36.72 Opal [facility] Respiratory rate 2022-04-17 13:36:00 16 /min [facility] Oxygen saturation in Arterial blood by Pulse oximetry 2022-04-17 13:36:00 99 /min [place] [facility] Body height 2022-04-17 05:12:00 152.4 cm [facility] acute hospital Body weight 2022-04-17 05:12:00 83.507 kg General acute hospital BMI 2022-04-17 05:12:00 35.95 kg/m2 [facility] acute hospital Procedures Procedure Date / Time Performed Performing Clinician Source DIABETES TESTING REPORTS 2025-01-01 14:19:39 Doc edwige Unassigned, [place] [facility] DIABETES TESTING REPORTS 2024-12-25 21:32:28 Doc edwige Unassigned, [place] [facility] CREATININE U 24 HR 2024-12-22 16:13:00 Kathe Cruz [facility] PROTEIN QUANT U/24H 2024-12-22 16:13:00 Kirstie Cruz [facility] DIABETES TESTING REPORTS 2024-12-18 21:51:02 Doc edwige Unassigned, [place] [facility] DIABETES TESTING REPORTS 2024-12-14 20:56:29 Doc edwige Unassigned, [place] [facility] POCT URINALYSIS W/O SPECIFIC GRAVITY 2024-12-08 13:55:00 Mirlande Cruz [facility] POCT TEST 2024-12-08 13:47:00 Kirstie Cruz [facility] TOTAL BETA HCG ASSAY 2023-12-19 01:01:00 Nathan Cullen [facility] COMP. METABOLIC PANEL ([id number]) 2023-12-05 15:18:00 John Paul Welch [facility] CBC WITH DIFF 2023-12-05 15:18:00 John Paul Welch [facility] GLYCOSYLATED HEMOGLOBIN (A1C) 2023-12-05 15:18:00 John Paul Welch [facility] HEPATITIS B SURFACE ANTIGEN 2023-12-05 15:18:00 John Paul Welch [facility] HB ABO GROUPING 2023-12-05 15:18:00 Porfirio Welch [facility] PAP SMEAR-LIQUID BASED-CP 2023-12-05 15:18:00 John Paul Welch [facility] RUBELLA SCREEN IGG 2023-12-05 15:18:00 Fidel Welch [facility] VZV ANTIBODY SCREEN 2023-12-05 15:18:00 Daisy Welch [facility] GC & CHLAMYDIA AMPLIFIED ASSAY 2023-12-05 15:18:00 John Paul Welch [facility] LAB ONLY PAP SMEAR-LIQUID BASED 2023-12-05 15:18:00 John Paul Welch [facility] HIV 1/2 AG-AB WITH REFLEX 2023-12-05 15:18:00 John Paul Welch [facility] TRICHOMONAS AMPLIFIED ASSAY 2023-12-05 15:18:00 John Paul Welch [facility] SYPHILIS IGG/IGM 2023-12-05 15:18:00 David Welch [facility] URINE CULTURE 2023-12-05 15:05:00 John Paul Welch [facility] POCT URINALYSIS 2023-12-05 13:55:00 Porfirio Welch [facility] POCT TEST 2023-12-05 13:55:00 Daisy Welch [facility] POCT TEST 2023-10-24 23:33:00 Rosy Cullen ra [facility] NOTICE OF PRIVACY PRACTICES 2023-07-21 00:54:08 Doctor Unassigned, [place] [facility] CONSENT/REFUSAL FOR DIAGNOSIS AND TREATMENT 2023-07-21 00:53:02 Doctor Unassigned, [place] [facility] INSURANCE CORRESPONDENCE 2023-05-29 06:01:00 Doc tor Unassigned, [place] [facility] ASSIGNMENT OF BENEFITS 2023-05-14 19:22:21 Docto r Unassigned, [place] [facility] FLU VACC ([id number]), 6 MO-64 YRS, .5ML, IM, QUAD (FLUCELVAX) 2023-03-11 15:50:11 Mundo Haji [facility] POCT TEST 2023-02-20 02:16:00 Kassy Alfaro [facility] LIPASE 2023-02-20 02:14:00 Corrina Alfaro [facility] COMP. METABOLIC PANEL ([id number]) 2023-02-20 02:14:00 Corrina Alfaro [facility] CBC WITH DIFF 2023-02-20 02:14:00 Corrina Alfaro [facility] URINALYSIS 2023-02-20 02:14:00 Cor[facility] RAPID INFLUENZA A/B 2023-02-20 02:14:00 Kassy Alfaro [facility] COVID-19 (ID NOW RAPID TESTING) 2023-02-20 02:14:00 Corrina Alfaro [facility] CONSENT/REFUSAL FOR DIAGNOSIS AND TREATMENT 2023-02-20 01:41:15 Doctor Unassigned, [place] [facility] CT ABDOMEN PELVIS W CONTRAST 2022-11-10 08:36:00 Rui Hernadez [facility] POCT TEST 2022-11-10 07:09:00 Rogelio Win [facility] URINALYSIS 2022-11-10 07:02:00 Rogelio Win [facility] LIPASE 2022-11-10 06:59:00 Rogelio Win [facility] MAGNESIUM 2022-11-10 06:59:00 Rogelio Wine [facility] COMP. METABOLIC PANEL ([id number]) 2022-11-10 06:59:00 Rogelio Win [facility] CBC WITH DIFF 2022-11-10 06:59:00 Rogelio Win [facility] POCT TEST 2022-05-07 00:00:00 Jessica Pedersen [facility] US FIRST TRIMESTER LESS THAN 14 WEEKS WITH TRANSVAGINAL 2022-04-17 18:30:37 Jessica Pedersen [facility] POCT GLUCOSE (AUTOMATED) 2022-04-17 14:26:00 Franklin Matos [facility] US PELVIS COMPLETE WITH TRANSVAGINAL 2022-04-17 08:08:02 Irving Matos [facility] ACUTE CARE VENOUS BLOOD GAS 2022-04-17 07:25:00 Irving Matos [facility] ABORH CONFIRMATION (LAB ONLY) 2022-04-17 06:13:00 Irving Matos [facility] HB ABO GROUPING 2022-04-17 05:25:00 Irving Matos [facility] COMP. METABOLIC PANEL ([id number]) 2022-04-17 05:23:00 Irving Matos [facility] TOTAL BETA HCG ASSAY 2022-04-17 05:23:00 Irving Matos [facility] CBC WITH DIFF 2022-04-17 05:23:00 Irving Matos [facility] GLYCOSYLATED HEMOGLOBIN (A1C) 2022-04-17 05:23:00 Irving Matos [facility] URINALYSIS 2022-04-17 05:23:00 Irving Matos [facility] NOTICE OF PRIVACY PRACTICES 2022-04-17 05:07:59 Doctor Unassigned, [place] [facility] CONSENT/REFUSAL FOR DIAGNOSIS AND TREATMENT 2022-04-17 05:07:05 Doctor Unassigned, [place] [facility] Encounters Start Date/Time End Date/Time Encounter Type Admission Type Attending Clinicians Care Facility Care Department Encounter ID Source 2022-04-17 16:27:52 Outpatient X [facility] J[facility]NY [id number] [facility] 2025-01-07 15:30:00 2025-01-07 15:51:36 Routine Visit Mirlande Tucker [facility] 1.2.840.114 350.1.13.10 4.2.7.2.686 [id number] [facility] 2025-01-01 00:00:00 2025-01-02 02:05:19 Orders Only Doctor Unassigned, [place] Doctor Unassigned, [place] [facility] 1.2.840.114 350.1.13.10 4.2.7.2.686 [id number] [facility] 2024-12-31 15:15:00 2024-12-31 15:33:51 Office Visit R Risk, Ang-Rmchp-N p/High Laura Robles, Ang-Rmchp-N p/High [facility] & [facility] 1.2.840.114 350.1.13.10 4.2.7.2.686 [id number] [facility] 2024-12-25 00:00:00 2024-12-26 02:03:26 Orders Only Doctor Unassigned, [place] Doctor Unassigned, [place] [facility] ([facility] 1.2.840.114 350.1.13.10 4.2.7.2.686 [id number] [facility] 2024-12-25 10:45:00 2024-12-25 11:02:55 Routine Visit R Mirlande Cruz [facility] & [facility]ILD [facility] 1.2.840.114 350.1.13.10 4.2.7.2.686 [id number] [facility] 2024-12-22 13:15:00 2024-12-22 13:15:00 Seals Engraver Visit R Ender, Ang-Rmchp Mirlande Cruz, Ang-Rmchp [facility] & [facility]ILD [facility] 1.2.840.114 350.1.13.10 4.2.7.2.686 [id number] [facility] 2024-12-18 00:00:00 2024-12-19 02:04:04 Orders Only Doctor Unassigned, [place] Doctor Unassigned, [place] [facility] 1.2.840.114 350.1.13.10 4.2.7.2.686 [id number] [facility] 2024-12-18 08:15:00 2024-12-18 08:45:48 Routine Visit R Mirlande Cruz [facility]ILD [facility] 1.2.840.114 350.1.13.10 4.2.7.2.686 [id number] [facility] 2024-12-14 00:00:00 2024-12-15 02:04:34 Orders Only Doctor Unassigned, [place] Doctor Unassigned, [place] [facility] 1.2.840.114 350.1.13.10 4.2.7.2.686 [id number] [facility] 2024-12-11 00:00:00 2024-12-11 11:46:36 Telephone Lynnetterolanda Mirlande Hansa [facility] CHILD [facility] 1.2.840.114 350.1.13.10 4.2.7.2.686 [id number] [facility] 2024-12-11 00:00:00 2024-12-11 10:34:19 Case Management Mirlande Cruz [facility] 1.2.840.114 350.1.13.10 4.2.7.2.686 [id number] [facility] 2024-12-11 10:00:00 2024-12-11 10:27:42 Nurse Visit R MIRLANDE CRUZ [facility] CHILD [facility] 1.2.840.114 350.1.13.10 4.2.7.2.686 [id number] [facility] 2024-12-08 08:30:00 2024-12-08 10:08:51 Initial Visit R MIRLANDE CRUZ [facility] .840.114 350.1.13.10 4.2.7.2.686 [id number] [facility] 2024-12-08 08:00:00 2024-12-08 08:38:41 Outpatient R MIRLANDE CRUZ [facility] [id number] [facility] 2024-08-14 09:19:00 2024-08-14 12:41:00 Emergency X FAINA MILLER [facility] [id number] [facility] 2024-08-13 21:23:00 2024-08-14 00:40:00 Emergency X MANISH DURAN [facility] [id number] [facility] 2024-05-04 09:00:00 2024-05-04 09:00:00 Outpatient R OBI-JASON , GURJIT OBI-JASON , GURJIT [facility] [id number] [facility] 2023-12-18 19:48:00 2023-12-18 21:53:00 Emergency X SIMI CULLEN SANDRA [facility] [id number] [facility] 2023-12-18 19:48:00 2023-12-18 21:53:00 Emergency Simi Cullen [facility] .840.114 350.1.13.10 4.2.7.2.686 [id number] [facility] 2023-12-17 00:00:00 2023-12-17 10:00:15 Telephone Mirlande Cruz [facility] 1..840.114 350.1.13.10 4.2.7.2.686 [id number] [facility] 2023-12-12 10:00:00 2023-12-12 10:26:21 Outpatient BIBIANA BAILEY KRISTIN [facility] [id number] [facility] 2023-12-12 10:00:00 2023-12-12 10:26:21 Office Visit Risk, AnetaRmchp-N p/High Bibiana Hirsch N [facility] 1.0.114 350.1.13.10 4.2.7.2.686 [id number] [facility] 2023-12-09 08:15:00 2023-12-09 09:28:13 Outpatient MIRLANDE TUCKER [facility] [id number] [facility] 2023-12-09 08:15:00 2023-12-09 09:28:13 Seals Engraver Visit Lab, Mirlande Olivares [facility] 1..114 350.1.13.10 4.2.7.2.686 [id number] [facility] 2023-12-06 00:00:00 2023-12-06 16:28:02 [facility] 1.0.114 350.1.13.10 4.2.7.2.686 [id number] [facility] 2023-12-06 00:00:00 2023-12-06 16:23:33 Abstract [facility] 1..114 350.1.13.10 4.2.7.2.686 [id number] [facility] 2023-12-05 09:15:00 2023-12-05 10:21:02 Initial Visit John Paul Welch [facility] 1.0.114 350.1.13.10 4.2.7.2.686 [id number] [facility] 2023-12-05 07:30:00 2023-12-05 07:30:00 Outpatient R CUONG NDIAYE [facility] [id number] [facility] 2023-12-05 07:00:00 2023-12-05 07:00:00 Outpatient R CUONG NDIAYE [facility] [id number] [facility] 2023-12-03 08:00:00 2023-12-03 08:00:00 Outpatient R MIRLANDE CRUZ [facility] [id number] [facility] 2023-10-24 18:24:00 2023-10-24 18:55:00 Emergency X SIMI CULLEN SANDRA [facility] E[facility] [id number] [facility] 2023-10-24 18:24:00 2023-10-24 18:55:00 Emergency Simi Cullen [facility] 1.2.840.114 350.1.13.10 4.2.7.2.686 [id number] [facility] 2023-08-15 10:40:00 2023-08-15 10:40:00 Outpatient R OBI-JASON , GURJIT OBI-JASON , GURJIT [facility] [id number] [facility] 2023-08-01 13:20:00 2023-08-01 13:20:00 Outpatient R OBI-JASON , GURJIT OBI-JASON , GURJIT [facility] [id number] [facility] 2023-07-20 19:04:00 2023-07-20 19:53:00 Emergency MAURICE AUSTIN [facility] E[facility] [id number] [facility] 2023-07-20 19:04:00 2023-07-20 19:53:00 Emergency Maurice Bishop [facility] 1.2.840.114 350.1.13.10 4.2.7.2.686 [id number] [facility] 2023-07-18 08:00:00 2023-07-18 08:15:00 Seals Engraver Visit 2, Adc Lab Rigobertoi-[facility] BUILDING 1.2840.114 350.1.13.10 4.2.7.2.686 [id number] [facility] 2023-07-18 08:00:00 2023-07-18 08:00:00 Outpatient R OBI-JASON , GURJIT OBI-JASON , [facility] [id number] [facility] 2023-07-02 16:00:00 2023-07-02 16:00:00 Outpatient R OBI-JASON , GURJIT OBI-JASON , [facility] [id number] [facility] 2023-05-29 00:00:00 2023-05-29 00:00:00 Telephone Mundo Haji [facility] 1.84.114 350.1.13.10 4.2.7.2.686 [id number] [id number] [facility] 2023-05-29 00:00:00 2023-05-29 00:00:00 Orders Only Doctor Unassigned, [place] [facility] 1..114 350.1.13.10 4.2.7.2.686 [id number] [facility] 2023-05-28 00:00:00 2023-05-28 00:00:00 [facility] 1.2.840.114 350.1.13.10 4.2.7.2.686 [id number] [id number] [facility] 2023-05-24 00:00:00 2023-05-24 00:00:00 Telephone Gurjit Hudson [facility] BUILDING 1.2.840.114 350.1.13.10 4.2.7.2.686 [id number] [facility] 2023-05-22 00:00:00 2023-05-22 00:00:00 Telephone Gurjit Hudson [facility] 1.2.840.114 350.1.13.10 4.2.7.2.686 [id number] [facility] 2023-05-22 00:00:00 2023-05-22 00:00:00 Telephone Simon Santa [facility] BU[facility]ING 1.2.840.114 350.1.13.10 4.2.7.2.686 [id number] [id number] [facility] 2023-05-16 00:00:00 2023-05-16 00:00:00 [facility] 1.2.840.114 350.1.13.10 4.2.7.2.686 [id number] 044 [id number] [facility] 2023-05-16 00:00:00 2023-05-16 00:00:00 Telephone Gurjit Hudson [facility] BUILDING 1.2.840.114 350.1.13.10 4.2.7.2.686 [id number] [facility] 2023-05-15 00:00:00 2023-05-15 00:00:00 [facility]phone [facility] 1.2.840.114 350.1.13.10 4.2.7.2.686 [id number] [facility] 2023-05-14 13:20:00 2023-05-14 14:10:20 Office Visit Gurjit Hudson [facility] BUILDING 1.2.840.114 350.1.13.10 4.2.7.2.686 [id number] [id number] [facility] 2023-05-14 13:20:00 2023-05-14 14:10:20 Outpatient R OBLucas-GURJIT GOMEZ [facility] [id number] [facility] 2023-05-14 00:00:00 2023-05-14 00:00:00 Orders Only Doctor Unassigned, [place] [facility] 1.2840.114 350.1.13.10 4.2.7.2.686 [id number] [facility] 2023-05-14 00:00:00 2023-05-14 00:00:00 Patient Outreach Elayne Lenz [facility] BUILDING 1.2.840.114 350.1.13.10 4.2.7.2.686 [id number] [facility] 2023-05-13 00:00:00 2023-05-13 00:00:00 Telephone Mundo Haji [facility] BUILDING 1.2.840.114 350.1.13.10 4.2.7.2.686 [id number] [facility] 2023-05-10 00:00:00 2023-05-10 00:00:00 Telephone Mundo Haji [facility] BUILDING 1.2.840.114 350.1.13.10 4.2.7.2.686 [id number] [id number] [facility] 2023-05-10 00:00:00 2023-05-10 00:00:00 Telephone Mundo Haji [facility] BUILDING 1.2.840.114 350.1.13.10 4.2.7.2.686 [id number] 044 [id number] [facility] 2023-04-30 00:00:00 2023-04-30 00:00:00 Telephone Mundo Haji [facility] BUILDING 1.2.840.114 350.1.13.10 4.2.7.2.686 [id number] [facility] 2023-04-23 00:00:00 2023-04-23 00:00:00 Patient Outreach Mary Lou Mackey [facility] 1.2.840.114 350.1.13.10 4.2.7.2.686 [id number] [facility] 2023-04-23 00:00:00 2023-04-23 00:00:00 Telephone Gurjit Hudson [facility] 1.2.840.114 350.1.13.10 4.2.7.2.686 [id number] [facility] 2023-04-22 10:40:00 2023-04-22 10:40:00 Office Visit ObGurjit Yousif [facility] 1.2.840.114 350.1.13.10 4.2.7.2.686 [id number] [facility] 2023-04-22 10:30:00 2023-04-22 10:30:00 Outpatient R ADITHYA JANICEMUNDO ALEJANDRE [facility] [id number] [facility] 2023-04-22 10:00:00 2023-04-22 10:00:00 Seals Engraver Visit 2, Adc Lab Gurjit Hudson [facility] BUILDING 1.2.840.114 350.1.13.10 4.2.7.2.686 [id number] [facility] 2023-04-22 10:40:00 2023-04-22 09:40:51 Outpatient R JORGE L-GURJIT GOMEZ [facility] [id number] [facility] 2023-03-12 00:00:00 2023-03-12 00:00:00 Patient Outreach DelfinElayne [facility] BUILDING 1.2.840.114 350.1.13.10 4.2.7.2.686 [id number] [id number] [facility] 2023-03-11 10:00:00 2023-03-11 10:54:20 Office Visit Mundo Haji [facility] 1.2.840.114 350.1.13.10 4.2.7.2.686 [id number] [facility] 2023-03-11 10:00:00 2023-03-11 10:54:20 Outpatient R MUNDO HAJI OGECHUKWU [facility] [id number] [facility] 2023-02-19 20:57:00 2023-02-20 00:16:00 Emergency X CORRINA ALFARO [facility] [id number] [facility] 2023-02-19 20:57:00 2023-02-20 00:16:00 Emergency Corrina Alfaro [facility] 1.2.840.114 350.1.13.10 4.2.7.2.686 [id number] [facility] 2022-11-13 15:00:00 2022-11-13 15:00:00 Outpatient R JESSICA PEDERSEN [facility] [id number] [facility] 2022-11-13 15:00:00 2022-11-13 15:00:00 Outpatient JESSICA KEYES [facility] [id number] [facility] 2022-11-10 01:48:00 2022-11-10 04:29:00 Emergency X PATO, K [facility] [id number] [facility] 2022-11-10 01:48:00 2022-11-10 04:29:00 Emergency X PATORogelio [facility] E[facility] [id number] [facility] 2022-11-10 01:48:00 2022-11-10 04:29:00 Emergency Rogelio Winge [facility] 1.2.840.114 350.1.13.10 4.2.7.2.686 [id number] [facility] 2022-05-07 15:30:00 2022-05-07 16:17:33 Outpatient R JESSICA PEDERSEN [facility] [id number] [facility] 2022-05-07 15:30:00 2022-05-07 16:17:33 [facility] 1.2.840.114 350.1.13.10 4.2.7.2.686 [id number] [facility] 2022-04-16 23:14:00 2022-04-17 16:15:00 Emergency Vasut, Irving Mckeon Jessica Pedersen [facility] 1..840.114 350.1.13.10 4.2.7.2.686 [id number] [facility] 2022-04-16 23:14:00 2022-04-17 16:15:00 Outpatient X JESSICA PEDERSEN [facility] JOHNY [id number] [facility] 2022-03-19 09:40:00 2022-03-19 09:40:00 Outpatient R YVES MANRIQUEZ [facility] [id number] [facility] 2016-11-30 16:59:48 2016-11-30 17:28:00 Emergency X DENISE CONNER III [facility] [id number] [facility] Results Test Description Test Time Test Comments Results Resul t Comments Source DIABETES TESTING REPORTS 2025-01-01 14:19:39 Ordered by an unspecified provider. [facility] DIABETES TESTING REPORTS 2024-12-25 21:32:28 Ordered by an unspecified provider. [facility] DIABETES TESTING REPORTS 2024-12-18 21:51:02 Ordered by an unspecified provider. [facility] DIABETES TESTING REPORTS 2024-12-14 20:56:29 [facility] an unspecified provider[facility] [id number] 13:47:00* Test Item Value Reference Range Interpretation Comme nts POCT PREG (test code = 1605) Positive On board controls acceptable with C Line (test code = 3574) Yes POCT PREG LOT # (test code = 3575) POCT PREG TEST DATE ( test code = 3576) [facility] W Specific [id number] 13:55:00* Test Item Value Reference Range Interpretation Comme nts POCT U SP GRAV (test code = 3255) 1.015 mg/dl 1.005-1.025 POCT PH U (test code = 3254) 5.5 mg/dl 5-8 POCT U LEUK EST (test code = 3263) neg Negative - Negative POCT U NIT (test code = 3262) neg Negative - Negati ve POCT U PROT (test code = 3259) neg Negative - Negative POCT U GLU (test code = 3256) 500 Negative - Negati ve POCT U KETONE (test code = 3258) 3+ Negative - Negative POCT U UROBILI (test code = 3260) 1.0 mg/dl 0.2-1 POCT U BILI (test code = 3261) neg Negative - Negative POCT U BLD (test code = 3257) neg Negative - Negati ve POCT U COLOR (test code = 3266) POCT U APPEAR (test code = 3267) Lab Interpretation (test cod e = 44972-7) Abnormal [facility] [id number] 13:55:00* Test Item Value Reference Range Interpretation Comme nts POCT PREG (test code = 1605) Positive On board controls acceptable with C Line (test code = 3574) Yes POCT PREG LOT # (test code = 3575) POCT PREG TEST DATE ( test code = 3576) [facility] [id number] 23:33:00* Test Item Value Reference Range Interpretation Comme nts POCT PREG (test code = 1605) Negative On board controls acceptable with C Line (test code = 3574) Yes POCT PREG LOT # (test code = 3575) [id number] POCT PREG TEST DATE ( test code = 3576) 09/27/2024 Lab Interpretation (test cod e = 96184-6) [facility] WITH [id number] 03:31:22* Test Item Value Reference Range Interpretation Comme nts WBC (test code = 6690-2) 14.70 See_Comment H [Automated messa ge] The system which generated this result transmitted reference range: 4.30 - 11.10 10*3/?L. The reference range was not used to interpret this result as normal/abnormal. RBC (test code = 789-8) 5.12 See_Comment [Automated messa ge] The system which [...] 34.4 g/dL 31.6-35.1 RDW-SD (test code = 25562-8) 36.2 fL 39.0-49.9 L RDW-CV (test code = 788-0) 12.4 % 12.0-15.5 PLT (test code = 777-3) 173 See_Comment [Automated [employer] ge] The system which generated this result transmitted reference range: 166 - 358 10*3/?L. The reference range was not used to interpret this result as normal/abnormal. MPV (test code = 38067-4) 13.3 fL 9.5-12.9 H IPF % (test code = 3002699547) 21.5 % 1.3-7.7 H Platelet count measured by fluorescence method. NRBC/100 WBC (test code = 9983188908) 0.0 See_Comment [Automated [employer] ssage] The system which generated this result transmitted reference range: 0.0 - 10.0 /100 WBCs. The reference range was not used to interpret this result as normal/abnormal. NRBC x10^3 (test code = 9874401540) See_Comment [Automated [employer]] The system which generated this result transmitted reference range: 10*3/?L. The reference range was not used to interpret this result as normal/abnormal. SEG % (test code = 29705-0) 60 % 33-76 BAND % (test code = 10768-6) 5 % 0-1 H LYMPH % (test code = 66514-8) 27 % 14-54 REACT LYMPH % (test code = 1669730091) 1 % MONO % (test code = 11258-9) 6 % 0-4 H EOS % (test code = 53640-6) 1 % 0-3 ANC (test code = 753-4) 9.56 10*3/uL 1.88-7.09 H Lab Interpretation (test code = 22111-1) [facility] (94793)2023-02-20 02:48:49* Test Item Value Reference Range Interpretation Comme nts NA (test code = 9129984039) 134 mmol/L 135-145 L K (test code = 6665726093) 3.8 mmol/L 3.5-5.0 CL (test code = 0982703290) 99 mmol/L 98-108 CO2 TOTAL (test code = 4717091752) 27 mmol/L 23-31 AGAP (test code = 7619563396) 8 2-16 BUN (test code = 6611265650) 11 mg/dL 7-23 GLUCOSE (test code = 6153461103) 258 mg/dL 70-110 H CREATININE (test code = 4170189026) 0.47 mg/dL 0.50-1.04 L TOTAL BILI (test code = 6984694135) 0.4 mg/dL 0.1-1.1 CALCIUM (test code = 8573205420) 9.1 mg/dL 8.6-10.6 T PROTEIN (test code = 1366621490) 8.2 g/dL 6.3-8.2 ALBUMIN (test code = 8072338391) 4.3 g/dL 3.5-5.0 ALK PHOS (test code = 3753348866) 113 U/L 34-122 ALTv (test code = 1742-6) 45 U/L 5-35 H AST(SGOT) (test code = 2810692311) 35 U/L 13-40 eGFR (test code = 6268227032) 161.5 mL/min/1.73m2 KEELEY (test code = KEELEY) [...] imaging tests). Lab Interpretation (test code = 85690-7) [facility] 02:48:49* Test Item Value Reference Range Interpretation Comme nts LIPASE (test code = 2544299510) 88 U/L 0-220 Lab Interpretation (test cod e = 25938-4) [facility] [id number] 02:16:00* Test Item Value Reference Range Interpretation Comme nts POCT PREG (test code = 1605) Negative On board controls acceptable with C Line (test code = 3574) Yes POCT PREG LOT # (test code = 3575) [id number] POCT PREG TEST DATE ( test code = 3576) 07/24/2024 Lab Interpretation (test cod e = 80275-9) [facility]23-[facility]-17 08:09:00* Test Item Value Reference Range Interpretation Comme nts MAGNESIUM (test code = 7220179537) 1.6 mg/dL 1.7-2.4 L Lab Interpretation (test cod e = 26150-4) [facility]normal [facility] (69773)2022-11-10 08:08:19* Test Item Value Reference Range Interpretation Comme nts NA (test code = 9438861293) 136 mmol/L 135-145 K (test code = 2334025468) 3.7 mmol/L 3.5-5.0 CL (test code = 4739834470) 99 mmol/L 98-108 CO2 TOTAL (test code = 0930507714) 26 mmol/L 23-31 AGAP (test code = 4393046515) 11 2-16 BUN (test code = 9882932819) 10 mg/dL 7-23 GLUCOSE (test code = 3904115854) 303 mg/dL 70-110 H CREATININE (test code = 2645394188) 0.41 mg/dL 0.50-1.04 L TOTAL BILI (test code = 8484621918) 0.6 mg/dL 0.1-1.1 CALCIUM (test code = 2350241020) 9.1 mg/dL 8.6-10.6 T PROTEIN (test code = 4719751953) 7.2 g/dL 6.3-8.2 ALBUMIN (test code = 7749350419) 4.1 g/dL 3.5-5.0 ALK PHOS (test code = 4865448684) 102 U/L 34-122 ALTv (test code = 1742-6) 42 U/L 5-35 H AST(SGOT) (test code = 0783344459) 33 U/L 13-40 eGFR (test code = 7095677641) 189.0 mL/min/1.73m2 KEELEY (test code = KEELEY) [...] imaging tests). Lab Interpretation (test code = 26412-6) [facility] 08:08:19* Test Item Value Reference Range Interpretation Comme nts LIPASE (test code = 5391953932) 83 U/L 0-220 Lab Interpretation (test cod e = 60155-6) [facility] WITH [id number] 08:02:00* Test Item Value Reference Range Interpretation Comme nts WBC (test code = 6690-2) 19.43 See_Comment H [Automated messa ge] The system which generated this result transmitted reference range: 4.30 - 11.10 10*3/?L. The reference range was not used to interpret this result as normal/abnormal. RBC (test code = 789-8) 5.07 See_Comment [Automated messa ge] The system which [...] 33.6 g/dL 31.6-35.1 RDW-SD (test code = 06652-6) 36.8 fL 39.0-49.9 L RDW-CV (test code = 788-0) 12.3 % 12.0-15.5 PLT (test code = 777-3) 164 See_Comment L [Automated messa ge] The system which generated this result transmitted reference range: 166 - 358 10*3/?L. The reference range was not used to interpret this result as normal/abnormal. MPV (test code = 05556-8) 13.6 fL 9.5-12.9 H IPF % (test code = 7206946970) 18.8 % 1.3-7.7 H Platelet count measured by fluorescence method. NRBC/100 WBC (test code = 0074648112) 0.0 See_Comment [Automated [employer] ssage] The system which generated this result transmitted reference range: 0.0 - 10.0 /100 WBCs. The reference range was not used to interpret this result as normal/abnormal. NRBC x10^3 (test code = 1724004008) See_Comment [Automated messa ge] The system which generated this result transmitted reference range: 10*3/?L. The reference range was not used to interpret this result as normal/abnormal. GRAN MAT (NEUT) % (test code = 770-8) 79.4 % IMM GRAN % (test code = 6317653897) 0.60 % LYMPH % (test code = 736-9) 13.0 % MONO % (test code = 5905-5) 5.8 % EOS % (test code = 713-8) 0.8 % BASO % (test code = 706-2) 0.4 % GRAN MAT x10^3(ANC) (test code = 7269621383) 15.45 10*3/uL 1.88-7.09 H IMM GRAN x10^3 (test code = 3063950286) 0.11 10*3/uL 0.00-0.06 H LYMPH x10^3 (test code = 731-0) 2.52 10*3/uL 1.32-3.29 MONO x10^3 (test code = 742-7) 1.12 10*3/uL 0.33-0.92 H EOS x10^3 (test code = 711-2) 0.15 10*3/uL 0.03-0.39 BASO x10^3 (test code = 704-7) 0.08 10*3/uL 0.01-0.07 H Lab Interpretation (test code = 99041-1) Abnormal [facility] [id number] 07:09:00* Test Item Value Reference Range Interpretation Comme nts POCT PREG (test code = 1605) Negative On board controls acceptable with C Line (test code = 3574) Yes POCT PREG LOT # (test code = 3575) [id number] POCT PREG TEST DATE ( test code = 3576) 2024-03-01 Lab Interpretation (test cod e = 47442-0) [id number] 22:05:00* Test Item Value Reference Range Interpretation Comme nts POCT PREG (test code = 1605) Negative On board controls acceptable with C Line (test code = 3574) Yes POCT PREG LOT # (test code = 3575) POCT PREG TEST DATE ( test code = 3576) [facility] [id number] 22:05:00* Test Item Value Reference Range Interpretation Comme nts POCT PREG (test code = 1605) Negative On board controls acceptable with C Line (test code = 3574) Yes POCT PREG LOT # (test code = 3575) POCT PREG TEST DATE ( test code = 3576) [facility] GLUCOSE (AUTOMATED)2022-04-17 14:31:48* Test Item Value Reference Range Interpretation Comme [facility] POCT GLU (test code = 3999261025) 273 mg/dL 70-110 H Lab Interpretation (test cod e = 49610-2) [facility]normal [facility] (A1C)2022-04-17 10:38:36* Test Item Value Reference Range Interpretation Comme nts HGB A1C (test code = 4548-4) 10.9 % 4.0-5.7 H KEELEY (test code = KEELEY) Reference RangesNormal: <5.7%Prediabetes: 5.7 - 6.4%Diabetes: > 6.5% Lab Interpretation (test code = 67254-4) Abnormal [facility] Confirmation (Lab Only)2022-04-17 07:36:24* Test Item Value Reference Range Interpretation Comme nts ABO & RH (test code = 20) O Positive Performed at [facility] B Laboratory Services - [facility] Blood [id number] [place] [address]Atim Free: [phone] No. [id number] [facility] WITH [id number] 06:16:06* Test Item Value Reference Range Interpretation [...] 34.8 g/dL 31.6-35.1 RDW-SD (test code = 68400-3) 34.2 fL 39.0-49.9 L RDW-CV (test code = 788-0) 12.1 % 12.0-15.5 PLT (test code = 777-3) See_Comment [Automated message] The system which generated this result transmitted reference range: 166 - 358 10*3/?L. The reference range was not used to interpret this result as normal/abnormal. MPV (test code = 96914-2) 12.7 fL 9.5-12.9 NRBC/100 WBC (test code = 8251685802) See_Comment [Automated message] The system which generated this result transmitted reference range: 0.0 - 10.0 /100 WBCs. The reference range was not used to interpret this result as normal/abnormal. NRBC x10^3 (test code = 0915255670) See_Comment [Automated message] The system which generated this result transmitted reference range: 10*3/?L. The reference range was not used to interpret this result as normal/abnormal. SEG % (test code = 99471-3) 52 % 33-76 BAND % (test code = 53382-2) 8 % 0-1 H LYMPH % (test code = 51006-3) 28 % 14-54 MONO % (test code = 61222-6) 8 % 0-4 H EOS % (test code = 10128-2) 4 % 0-3 H ANC (test code = 753-4) 10.72 10*3/uL 1.88-7.09 H Lab Interpretation (test code = 48525-2) Abnormal [facility] BETA HCG [id number] 06:11:45* Test Item Value Reference Range Interpretation Comme nts BETA HCG (test code = 6038924337) See_Comment [Automated [employer]] The system which generated this result transmitted reference range: Non- female and male patients: <5 mIU/mL. The reference range was not used to interpret this result as normal/abnormal. KEELEY (test code = KEELEY) Gestational Age ?Range (mIU/mL) 1-10 ?Weeks ?[id number] Weeks ?73729-85434493-73 Weeks ?0443-19434837-14 Weeks ?8150-224552 Biotin has been reported to cause a negative bias, interpret results relative to patient's use of biotin. [facility] [id number] 06:08:18* Test Item Value Reference Range Interpretation Comme nts ABO & RH (test code = 20) O Positive Performed at [facility] Laboratory Services - [facility] Blood [address] [place] [address] Free: [phone] No. [id number] IAT (test code = 1185) Negative Performed at [facility] Laboratory [facility] Blood [address] Free: [phone] No. [id number] [facility] (38054)2022-04-17 05:53:03* Test Item Value Reference Range Interpretation Comme nts NA (test code = 8580038311) 136 mmol/L 135-145 K (test code = 3678974985) 3.8 mmol/L 3.5-5.0 CL (test code = 1388301386) 100 mmol/L 98-108 CO2 TOTAL (test code = 2637853682) 21 mmol/L 23-31 L AGAP (test code = 6239119827) 2-16 BUN (test code = 0200104885) 11 mg/dL 7-23 GLUCOSE (test code = 7320590989) 291 mg/dL 70-110 H CREATININE (test code = 9284105971) 0.48 mg/dL 0.50-1.04 L TOTAL BILI (test code = 6575399400) 0.5 mg/dL 0.1-1.1 CALCIUM (test code = 3459670531) 9.8 mg/dL 8.6-10.6 T PROTEIN (test code = 3145404471) 8.1 g/dL 6.3-8.2 ALBUMIN (test code = 2012476844) 4.8 g/dL 3.5-5.0 ALK PHOS (test code = 2278814504) 113 U/L 34-122 ALTv (test code = 1742-6) 32 U/L 5-35 AST(SGOT) (test code = 3140314585) 30 U/L 13-40 eGFR (test code = 3920557015) mL/min/1.73m2 KEELEY (test code = KEELEY) Association [...] imaging tests). Lab Interpretation (test code = 38837-2) Abnormal [facility] Notes Date/Time Note Provider Source 2024-12-11 11:46:23 Called patient, notified patient positive for UTI. Educated patient on antibiotics, good perineal hygiene, and increasing fluids. Pt verbalized understanding. LAUREEN Rao RN 12/11/2024 11:46 AM Laureen Rao RN [facility] 2024-12-11 11:25:44 Please let patient know she has UTI and I erx macrobid. [facility] 2023-12-18 21:51:51 Pt given printed and verbal [...] with steady gait, in no apparent distress. T [facility] 2023-12-18 19:43:53 Pt arrives ambulatory to ED c/o vaginal bleeding since 12/17/23. She reports blood in getting heavier, and she is having cramping. Pt reports 1st trimester . 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 She did see [facility] with this . No dysuria or hematuria. [...] Alex Guardado; Location: Labor and Delivery - [place] SECTION Review of Systems: Review of Systems [...] is 2 para 1-0-0-1. She has seen [facility] this already. She is not lightheaded or [...] 4284. She will need to follow-up with [facility] in 1 week. She remained stable here [...] Electronically signed by: Simi Cullen DO 12/18/232145 [facility] 2023-12-17 16:58:14 Addended by: RICA WHITE LVN on: 12/17/2023 04:58 PM Modules accepted: Orders [facility] 2023-12-17 09:53:37 Pt called, started having light [...] RN 12/17/23 9:54 AM Laureen Rao RN [facility] 2023-12-17 09:41:57 Patient states light spotting, cramps and pain began this morning. Sheri Llamas [facility] 2023-12-06 16:24:07 Called pt. And notified of GBS UTI and Rx sent to her pharmacy. Pt. Verbalizes understanding and denies any further questions at this time. Jennifer Solares RN [facility] 2023-10-24 18:38:25 Pt discharged with diagnosis of examination or test, negative result. Printed and verbal instructions reviewed with and given to pt. Prescriptions given x 0. Pt verbalized understanding of teaching and recommended follow-up. Denies questions or concerns at this time. Pt ambulatory at discharge. Appears in no apparent distress. No ataxia noted. Marivel Lima RN [facility] 2023-10-24 18:20:46 Pt states ' I missed my period for 5 days already, I did a urine test at home and it shows negative, I came here because I wanna check if what is wrong" Pmx- none Arielle Jon RN [facility] 2023-10-24 18:13:00 [facility] Emergency Department Note Patient Name: Wai Dumas Date of : 1995 28 year old female Treatment Room: [place] [address] Primary Care Physician: Gurjit Hudson Patient Escorted by: Self [9] Mode of [...] Alex Guardado; Location: Labor and Delivery - [place] SECTION Review of Systems: Review of Systems [...] -- ED COURSE Diagnosis/Impression as of 10/24/23 183 examination or test, negative result Procedures: Procedures [...] Electronically signed by: Simi Cullen DO 10/24/23 183 [facility] 2023-07-20 19:52:43 Pt given printed and verbal [...] with steady gait, in no apparent distress, R Iverson RN [facility] 2023-07-20 18:57:37 Pt ambulated into ER with [...] and vision. PMH: Diabetes R Braun RN [facility] 2023-07-18 08:00:00 Images from the original note were not included. Venipuncture collection performed by clean technique on the left anticubitus. Total of 1 attempts were made. Slight pressure and a bandage/dressing were applied to the site(s). The patient experienced no complications. The following specimens were processed according to instructions and sent to [facility] laboratories per lab order on 07/18/2023 : LT BLUE SST 1 RED LAV 2 PPT DK GREEN (LiHep) DK GREEN (SodH) CALLE DK BLUE (K2) DK BLUE (S) ACD Blood Culture NIPT/NTD Patient has been identified by and was provided with cup, antiseptic towelette, and clean catch instructions. 1 urine specimen(s) sent. Unpreserved 1 Urine Culture Aptima tube Other urine [facility] 2023-05-29 11:44:56 Images from the original note were not included. R Urbano [facility] 2023-05-28 15:04:49 PA submitted online at [employer]. Will await response from insurance [employer]. [facility] 2023-05-28 10:26:12 Images from the original note were not included. R Cullen [facility] 2023-05-24 16:12:13 Images from the original note were not included. MOBILE SPRING REPAIRER Salina Cullen [facility] 2023-05-22 15:19:19 Form completed, faxed and confirmation received. R Chaney MA [facility] 2023-05-22 15:17:44 Form signed, faxed and confirmation received. R Chaney MA [facility] 2023-05-22 09:25:[address] in providers folder to review and sign. Tiki Bunch MA 05/22/2023 9:26 AM R Bunch MA [facility] 2023-05-22 09:18:[address] E folder for review and to be sign. R Chaney MA [facility] 2023-05-22 08:18:38 Summary: 11 pages ax, placed in Forms folder (on MAs desk) Images from the original note were not included. R Kelsey [facility] 2023-05-22 08:03:48 Images from the original note were not included. [facility] 2023-05-17 16:05:38 PA submitted, waiting for determination. MOBILE SPRING REPAIRER Val Chaney MA [facility] 2023-05-17 15:28:40 Addended by: VAL CHANEY MA on: 05/17/2023 03:28 PM Modules accepted: Orders MOBILE SPRING REPAIRER Val Chaney MA [facility] 2023-05-17 15:14:25 Glucose test device ordered but test strips also needed. Order placed. [facility] 2023-05-16 14:26:31 Attempted to call patient, no answer. Unable to leave a message, VM not set up. Ozempic not covered after attempting PA. Tiki Bunch MA 05/16/2023 2:27 PM MOBILE SPRING REPAIRER Tiki Bunch MA [facility] 2023-05-16 13:56:21 Received denial for this medication. Placed notification in clinical staff folder. MOBILE SPRING REPAIRER Yolanda Estrada [facility] 2023-05-16 13:48:26 Images from the original note were not included. MOBILE SPRING REPAIRER Yolanda Estrada [facility] 2023-05-16 12:38:44 Additional information required for this PA. Placed form in clinical staff folder. MOBILE SPRING REPAIRER Yolanda Estrada [facility] 2023-05-16 07:58:38 Images from the original note were not included. MOBILE SPRING REPAIRER Tristen Estrada [facility] 2023-05-15 13:31:33 PA has been faxed and confirmation received. MOBILE SPRING REPAIRER Val Chaney MA [facility] 2023-05-15 12:25:47 To restart the prior auth [facility] 2023-05-15 08:33:29 Images from the original note were not included. MOBILE SPRING REPAIRER Salina Cullen [facility]
[2025-01-08 23:39] LABS: Absolute Lymphocytes (CBC) 3.3 K/uL (0.7-4.9); Hematocrit 42.1 % (36.0-45.0); Hemoglobin 14.2 g/dL (12.0-15.0); MCH 27.8 pg (27.0-35.0); MCHC 33.8 g/dL (32.0-36.0); MCV 82.3 fL (80-100); MPV 10.4 fL (7.6-11.3); Nucleated RBC Absolute Count 0.0 (0-0); Nucleated Red Blood Cells % 0.0 % (0-0); RBC Red Blood Cell Count 5.12 M/uL (3.86-4.86); White Blood Count 11.30 thou/uL (4.3-10.9)
[2025-01-09 00:17] LABS: Anion Gap 10.5 mEq/L (5.0-15.0); BUN Blood Urea Nitrogen 10.0 mg/dL (7-18); Glucose Level 88.0 mg/dL (74-106); HCG, Quantitative 35209.0 mIU/mL (1-3); Potassium 3.5 mEq/L (3.5-5.1)
--- NOTE | 2025-01-09 01:29 | ER ---
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 br2 PT IS 10 WK 2 DAYS PREG. PT C/O PELVIC PAIN. Coronavirus screen: Client denies travel out of the [place] in the last 14 days. Ebola Screen: Patient denies exposure to infectious person. Initial Sepsis Screen: Does the patient meet any 2 criteria? No. Patient's initial sepsis screen is negative. Does the patient have a suspected source of infection? No. Patient's initial sepsis screen is negative. Risk Assessment: Do you want to hurt yourself or someone else? Patient reports no desire to harm self or others. Onset of symptoms is unknown. 23:23 Method Of Arrival: Ambulatory br2 23:23 Acuity: AICHA 3 br2 Triage Assessment: 23:29 General: Appears in no apparent distress. comfortable, Behavior is calm, cooperative. br2 Pain: Complains of pain in groin Pain currently is 7 out of 10 on a pain scale. 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 - Infectious Disease History:: Denies. - Social history:: Smoking status: Patient denies any tobacco usage or history of. Patient/guardian denies using alcohol, street drugs. Screenin:32 [facility] ED Fall Risk Assessment (Adult) History of falling in the last 3 months, mf3 including since admission No falls in past 3 months (0 pts) Confusion or Disorientation No (0 pts) Intoxicated or Sedated No (0 pts) Impaired Gait No (0 pts) Mobility Assist Device Used No (0 pt) Altered Elimination No (0 pt) Score/Fall Risk Level 0 - 2 = Low Risk. Abuse screen: Denies threats or abuse. Denies injuries from another. Nutritional screening: No deficits noted. Tuberculosis screening: No symptoms or risk factors identified. Never had TB. Assessment: 23:32 Obstetrical Assessment: General assessment: awake and alert, Rupture of membranes not mf3 noted. Patient reports abdominal cramping, spotting that started an hour ago. General: Appears in no apparent distress. Behavior is calm, cooperative, appropriate for age. Pain: Complains of pain in abdomen Quality of pain is described as crampy. Neuro: No deficits noted. Cardiovascular: Heart tones S1 S2 Capillary refill Chest pain is denied. Respiratory: No deficits noted. Airway is patent. GI: Bowel sounds present X 4 quads. Reports lower abdominal pain, cramping. : No deficits noted. Vital Signs: 23:23 BP 115 / 80; Pulse 74; Resp 18; Temp 98.2(O); Pulse Ox 99% on R/A; Weight 83.01 kg; br2 Height 5 ft. 0 in. ; Pain 7/10; 23:35 BP 124 / 77; Pulse 90; Resp 18; Temp 98.5; Pulse Ox 98% ; mf3 23:23 Body Mass Index 35.74 (83.01 kg, 152.4 cm) br2 23:23 Pain Scale: Adult br2 ED Course: 22:33 Patient arrived in ED. im 22:52 Pete Sneed DO is Attending Physician. ms3 23:24 US 1st Trimest Single 1st Fetus In Process Unspecified. EDMS 23:24 Transvaginal OB In Process Unspecified. EDMS 23:28 Inserted saline lock: 20 gauge in right antecubital area, using aseptic technique. rv1 Blood collected. Flushed with 10 mL NS. 23:29 Triage completed. br2 23:29 Abo/rh Typing Sent. rv1 23:29 Basic Metabolic Panel Sent. rv1 23:29 CBC with Diff Sent. rv1 23:29 Test, Urine Sent. rv1 23:29 Quantitative Hcg Sent. rv1 23:29 Arm band placed on right wrist. br2 23:32 Bed in low position. Call light in reach. mf3 01/09 01:47 No provider procedures requiring assistance completed. intact, bleeding controlled, No cp4 redness/swelling at site. Pressure dressing applied. 01:47 Provided Education on: threatened miscarriage. cp4 Administered Medications: No medications were administered Medication: 01/08 23:32 VIS not applicable for this client. mf3 Outcome: 01/09 01:29 Discharge ordered by MD. ms3 01:47 Discharged to home ambulatory, cp4 01:47 Condition: stable 01:47 Discharge instructions given to patient, Instructed on discharge instructions, follow up and referral plans. Demonstrated understanding of instructions, follow-up care, 01:48 Patient left the ED. cp4 Signatures: Dispatcher [employer] EDMS Pete Sneed DO DO ms3 Tahmina Michaels rv1 Alicia Ahmadi Christina cp4 Kim Pitt RN RN br2 Bridget Whitmore RN RN mf3
--- NOTE | 2025-01-09 01:29 | EDPHYS ---
Physician Documentation [facility] Name: Lynette Topete Age: 29 yrs Sex: Female : 1995 Arrival Date: 01/08/2025 Time: 22:29 Bed 7 Private MD: ED Physician Pete Sneed HPI: 01/08 22:57 This 29 yrs old Female presents to ER via Unassigned with complaints of ms3 Vaginal Bleeding, + Preg <12wks. 22:57 29-year-old female -0-2-1 presents to the emergency department for vaginal ms3 spotting that began 1 hour prior to arrival. Patient states shortly thereafter she developed suprapubic cramping that she rates a 7/10. Patient denies any alleviating or inciting factors. Patient denies nausea, vomiting, fevers, chills. Patient states she seeks her obstetrical care at [facility] and has not had an ultrasound performed this . Patient states she is 10 weeks ; however, patient does not know the date of her last menstrual period. [facility]: 23:29 LMP 01/08/2025, unknown br2 Historical: - Allergies: 23:29 No Known Allergies; br2 - PMHx: 23:29 diabetes mellitus; Hypertensive disorder; br2 - Immunization history:: Adult Immunizations not up to date. - Infectious Disease History:: Denies. - Social history:: Smoking status: Patient denies any tobacco usage or history of. Patient/guardian denies using alcohol, street drugs. ROS: 22:57 Constitutional: Negative for fever, and chills. Cardiovascular: Negative for chest ms3 pain, and palpitations. Respiratory: Negative for shortness of breath, cough, wheezing, and pleuritic chest pain, Abdomen/GI: Negative for abdominal pain, nausea, vomiting, diarrhea, and constipation, MS/Extremity: Negative for injury and deformity, Skin: Negative for injury, rash, and discoloration, Exam: 22:57 Constitutional: This is a well developed, well nourished patient who is awake, alert, ms3 and in no acute distress. Chest/axilla: Normal chest wall appearance and motion. Nontender with no deformity. Cardiovascular: Regular rate and rhythm with a normal S1 and S2. No gallops, murmurs, or rubs. Normal PMI, no JVD. No pulse deficits. Respiratory: Lungs have equal breath sounds bilaterally, clear to auscultation and percussion. No rales, rhonchi or wheezes noted. No increased work of breathing, no retractions or nasal flaring. Abdomen/GI: Soft, non-tender, with normal bowel sounds. No distension or tympany. No guarding or rebound. No evidence of tenderness throughout. Skin: Warm, dry with normal turgor. Normal color with no rashes, no lesions, and no evidence of cellulitis. MS/ Extremity: Pulses equal, no cyanosis. Neurovascular intact. Full, normal range of motion. Vital Signs: 23:23 BP 115 / 80; Pulse 74; Resp 18; Temp 98.2(O); Pulse Ox 99% on R/A; Weight 83.01 kg; br2 Height 5 ft. 0 in. ; Pain 7/10; 23:35 BP 124 / 77; Pulse 90; Resp 18; Temp 98.5; Pulse Ox 98% ; mf3 23:23 Body Mass Index 35.74 (83.01 kg, 152.4 cm) br2 23:23 Pain Scale: Adult br2 MDM: 22:57 Differential diagnosis: threatened Ab, inevitable Ab, complete Ab, retained Ab, missed ms3 Ab, ectopic . 22:59 Medical Screening Exam initiated ms3 01/09 02:12 Data reviewed: vital signs, nurses notes, lab test result(s), radiologic studies, and ms3 as a result, I will discharge patient. Counseling: I had a detailed discussion with the patient and/or guardian regarding the historical points, exam findings, and any diagnostic results supporting the discharge/admit diagnosis, lab results, radiology results, the need for outpatient follow up, to return to the emergency department if symptoms worsen or persist or if there are any questions or concerns that arise at home. Special discussion: I discussed with the patient/guardian in detail that at this point there is no indication for admission to the hospital. It is understood, however, that if the symptoms persist or worsen the patient needs to return immediately for re-evaluation. ED course: Discussed ultrasound results and labs with patient. Patient to follow-up with [facility] in 2 to 3 days. All questions were answered. Return precautions discussed include worsening symptoms, or any other concerns. On reevaluation patient is alert and oriented x 4, no apparent distress, nontoxic-appearing, speaking full sentences. 01/08 22:52 Order name: Abo/rh Typing; Complete Time: 00:26 ms3 01/08 22:52 Order name: Basic Metabolic Panel; Complete Time: 00:26 ms3 01/08 22:52 Order name: CBC with Diff; Complete Time: 00:26 ms3 01/08 22:52 Order name: Test, Urine; Complete Time: 00: ms3 01/08 22:52 Order name: Quantitative Hcg; Complete Time: 00:26 ms3 01/08 22:52 Order name: US 1st Trimest Single 1st Fetus ms3 01/08 23:24 Order name: Transvaginal OB EDMS 01/08 22:52 Order name: IV Saline Lock; Complete Time: 23:29 ms3 01/08 22:52 Order name: Labs collected and sent; Complete Time: 23:29 ms3 01/08 22:52 Order name: NPO; Complete Time: 23:46 ms3 Administered Medications: No medications were administered Disposition Summary: 01/09/25 01:29 Discharge Ordered Notes: Location: Home(01/09/25 01:29) ms3 Condition: Stable(01/09/25 01:29) ms3 Diagnosis - Threatened (01/09/25 01:29) ms3 - Subchorionic hemorrhage ms3 Followup: ms3 - With: Private Physician - When: 2 - 3 days - Reason: Recheck today's complaints Discharge Instructions: - Discharge Summary Sheet ms3 - Threatened Miscarriage ms3 Forms: - Medication Reconciliation Form ms3 - Antibiotic Education ms3 - Prescription Opioid Use ms3 - Patient Portal Instructions ms3 - Leadership Thank You Letter ms3 Signatures: Dispatcher [employer] EDMS Pete Sneed DO DO ms3 Kim Pitt RN RN br2 Corrections: (The following items were deleted from the chart) 01/08 22:59 22:57 29-year-old female -0-2-1 presents to the emergency department for vaginal ms3 spotting that began 1 hour prior to arrival. Patient states shortly thereafter she developed suprapubic cramping that she rates a 7/10. Patient denies any alleviating or inciting factors. Patient denies nausea, vomiting, fevers, chills.. ms3 01/09 01: 01:28 Home ms3 ms3 : 01: new ms3 ms3 01: are unchanged ms3 ms3 :23 06: Stable ms3 ms3 : 01:28 Threatened ms3 ms3
[2025-01-09 07:21] VITALS: BP 124/77; TEMP 98.5; O2SAT 98
--- NOTE | 2025-01-09 09:50 | RAD REPORT ---
EXAM DESCRIPTION: ULTRASOUND OBSTETRICS EARLY TRANSABDOMINAL AND DOPPLER EVALUATION OF THE MATERNAL OVARIES CLINICAL HISTORY: Bleeding COMPARISON: None TECHNIQUE: Transabdominal ultrasound of the maternal pelvis was done, followed by Doppler evaluation of the bila teral ovaries. FINDINGS: There is a single viable intrauterine gestation,with heart rate of 179 beats/minute is noted. The yolk sac is seen. Multiple subchorionic hemorrhage visualized largest to the right of the gestational sac measures up t o 4.4 cm, moderate to large sized in comparison to the gestational sac. Using the crown-rump length and the gestational sac diameter,the average ultrasound gestational age i s 10 weeks 3 days. The expected date of confinement, based on this ultrasound evaluation is 08/03/2025. The maternal uterus measures is present and was not measured. The maternal right ovary measures 3.2 x 2 x 2 centimeters. Right adnexal cyst 3.8 cm The left ovary was not definitively seen, however a left adnexal cyst was measured 4.4 cm. Normal arterial flow seen in the right ovary. No free fluid in the pelvis. This study cannot preclude the possibility ectopic gestation. However, demonstration of an intrauteri ne gestation decreases the likelihood of simultaneous intrauterine and extrauterine gestation to a chance of 1/30,000, and thus favors a solitary intrauterine gestation. IMPRESSION: 1. Single live intrauterine gestation with sonographic age of 10 weeks 3 days. 2. Multiple subchorionic hemorrhage visualized largest to the right of the gestational sac measures up to 4.4 cm, moderate to large sized in comparison to the gestational sac. 3. Bilateral adnexal cysts as above Electronically signed by: Marco Porras MD 01/09/2025 12:59 AM CDT Workstation: [id number] Due to temporary technical issues with the [employer] reporting system, reports are being casi d by the in-house radiologist without review as a courtesy to ensure prompt reporting the interpreting radiologist is fully responsible for the content of the report. Transcribed Date/Time: 01/09/2025 9:50 AM
--- NOTE | 2025-01-09 09:50 | RAD REPORT ---
EXAM DESCRIPTION: ULTRASOUND OBSTETRICS EARLY TRANSABDOMINAL AND DOPPLER EVALUATION OF THE MATERNAL OVARIES CLINICAL HISTORY: Bleeding COMPARISON: None TECHNIQUE: Transabdominal ultrasound of the maternal pelvis was done, followed by Doppler evaluation of the bila teral ovaries. FINDINGS: There is a single viable intrauterine gestation,with heart rate of 179 beats/minute is noted. The yolk sac is seen. Multiple subchorionic hemorrhage visualized largest to the right of the gestational sac measures up t o 4.4 cm, moderate to large sized in comparison to the gestational sac. Using the crown-rump length and the gestational sac diameter,the average ultrasound gestational age i s 10 weeks 3 days. The expected date of confinement, based on this ultrasound evaluation is 08/03/2025. The maternal uterus measures is present and was not measured. The maternal right ovary measures 3.2 x 2 x 2 centimeters. Right adnexal cyst 3.8 cm The left ovary was not definitively seen, however a left adnexal cyst was measured 4.4 cm. Normal arterial flow seen in the right ovary. No free fluid in the pelvis. This study cannot preclude the possibility ectopic gestation. However, demonstration of an intrauteri ne gestation decreases the likelihood of simultaneous intrauterine and extrauterine gestation to a chance of 1/30,000, and thus favors a solitary intrauterine gestation. IMPRESSION: 1. Single live intrauterine gestation with sonographic age of 10 weeks 3 days. 2. Multiple subchorionic hemorrhage visualized largest to the right of the gestational sac measures up to 4.4 cm, moderate to large sized in comparison to the gestational sac. 3. Bilateral adnexal cysts as above Electronically signed by: Marco Porras MD 01/09/2025 12:59 AM CDT Workstation: [id number] Due to temporary technical issues with the [employer] reporting system, reports are being casi d by the in-house radiologist without review as a courtesy to ensure prompt reporting the interpreting radiologist is fully responsible for the content of the report. Transcribed Date/Time: 01/09/2025 9:49 AM
== END 2025-01-09 01:48 | disposition home or self-care (01) ==
LOC: ER 22:29
DX: O20.0 Threatened abortion (principal); Z3A.10 10 weeks gestation of pregnancy
CPT/HCPCS: 36415; 76801; 76817; 80048; 81025; 84702; 85025; 86900; 86901; 99284